=== PATIENT | female | born 1945 | race African-American/Black ===

== ENCOUNTER 2017-03-11 10:39 | Inpatient (IN) | payer MEDICARE, MEDICAID ==
[~2017-03-11] VITALS: Ht 162.6 cm; Wt 63.1 kg
[~2017-03-11 10:39] MED LIST: ALLO100T PO; AMLO5TAB88 PO; COLC0.6T66 PO; DOCU-138 PO; FERR-63 PO; FURO40TA5 PO; GABA-529 PO; MONT10TA24 PO; MULT-1146 PO; NITR0.4T3 SL; NOVOLOG 70/30 SQ; NOVOLOG SQ; OMEP20CA10 PO; RANO500T3 PO; SPIR25TA4 PO; TRAV2.5D BOTHEYE
[2017-03-11] MEDS ORDERED: METHYLPREDNISOLONE SOD SUCC 125 MG/2 ML VIAL IV STA (10:42)
[2017-03-11] MEDS ORDERED: FUROSEMIDE 40MG/4ML VIAL IV STA (10:42)
[2017-03-11] MEDS ORDERED: ASPIRIN 81MG TABLET PO STA (10:42)
[2017-03-11] MEDS ORDERED: IPRATROPIUM/ALBUTEROL 0.5-3(2.5)MG/3ML NEB HHN ONE (10:45)
[2017-03-11] MEDS ORDERED: DILTIAZEM HCL 30MG TABLET PO ONE (11:15)
[2017-03-11] MEDS ORDERED: DILTIAZEM HCL 5MG/ML 5ML VIAL IV ONE (11:15)
[2017-03-11 11:27] LABS: HEMATOCRIT. 36.6 % (36.0-48.0); HEMOGLOBIN. 11.5 g/dL (12.0-16.0); MEAN CORPUSCULAR HEMOGLOBIN 26.7 pg (28.0-32.0); MEAN CORPUSCULAR HGB CONC 31.3 g/dL (31.0-37.0); MEAN CORPUSCULAR VOLUME 85.2 fL (81.0-99.0); MEAN PLATELET VOLUME 9.8 fl (7.4-10.4); PLATELET 138 x1000/uL (130-400); RED CELL DISTRIBUTION WIDTH 18.6 % (11.6-14.6); WHITE BLOOD COUNT 16.5 x1000/uL (4.5-11.0)
[2017-03-11 11:29] LABS: DIFFERENTIAL COMMENT 1
[2017-03-11 11:33] LABS: BG BASE EXCESS -0.8 mmol/L (-2.0-2.0); BG BILEVEL POS AIRWAY PRESSURE 15/5; BG CARBOXYHEMOGLOBIN 0.2 % (0.5-1.5); BG DEOXYHEMOGLOBIN 1.3 % (0.0-5.0); BG FRACTION INSPIRED OXYGEN 50; BG HCO3 ACT 23.2 mmol/L (22.0-26.0); BG METHEMOGLOBIN 0.2 % (0.0-1.5); BG OXYGEN SATURATION 98.7 % (92.0-98.5); BG OXYHEMOGLOBIN 98.3 % (94.0-97.0); BG PCO2 36.2 mmHg (35.0-45.0); BG PH 7.425 (7.350-7.450); BG PO2 141.3 mmHg (75.0-100.0); BG SAMPLE SITE RIGHT BRACHIAL; BG TOTAL HEMOGLOBIN 11.9 g/dL (12.0-18.0); BG VENT MODE MASK - BIPAP; BG VENT RATE 14 set
[2017-03-11 11:34] LABS: INR 1.2; PROTHROMBIN TIME 12.7 sec
[2017-03-11 11:39] LABS: ALANINE AMINOTRANSFERASE 21 IU/L (13-61); ALBUMIN 2.8 g/dL (3.4-5.0); ANION GAP 13; CALCIUM 8.5 mg/dL (8.5-10.1); CARBON DIOXIDE 29 mEq/L (21-32); CHLORIDE 104 mEq/L (98-107); INDEX HEMOLYSI 1 (1-3); INDEX ICTERIC 1 (1-4); INDEX LIPEMIC 1 (1-3); LIPASE 51 IU/L (73-393); UREA NITROGEN BLOOD 23 mg/dL (7-21); eGFR 49 mL/min (>60)
[2017-03-11 11:42] LABS: LACTIC ACID 3.6 mmol/L (0.4-2.0)
[2017-03-11 11:43] LABS: CREATINE KINASE 33 IU/L (26-192); TROPONIN I 0.11 ng/mL (0.00-0.04)
[2017-03-11 11:51] LABS: *AMPHETAMINES SCREEN URINE NEGATIVE (NEGATIVE); *BARBITURATES SCREEN URINE NEGATIVE (NEGATIVE); *BENZODIAZEPINES SCREEN URINE NEGATIVE (NEGATIVE); *COCAINE SCREEN URINE NEGATIVE (NEGATIVE); CANNABINOID URINE SCREEN PRESUMTIVE POSITIVE (NEGATIVE); ECSTASY MDMA SCREEN URINE NEGATIVE (NEGATIVE); METHADONE URINE SCREEN NEGATIVE (NEGATIVE); OPIATES URINE SCREEN NEGATIVE (NEGATIVE); PHENCYCLIDINE URINE SCREEN NEGATIVE (NEGATIVE)
[2017-03-11 11:55] LABS: NT PRO B-TYPE NATRIURETIC PEP 52789 pg/mL (5-125); THYROID STIMULATING HORMONE 0.37 uIU/mL (0.36-3.74)
[2017-03-11 12:07] LABS: ANISOCYTOSIS 1+; PLATELET ESTIMATE NORMAL
[2017-03-11] MEDS ORDERED: LEVOFLOXACIN 750MG PREMIX 150 ML IV ONE (14:15)
[2017-03-11] MEDS ORDERED: DOCUSATE SODIUM 100MG CAPSULE PO PRN ×2 (15:45→19:30)
[2017-03-11] MEDS ORDERED: IPRATROPIUM/ALBUTEROL 0.5-3(2.5)MG/3ML NEB INH PRN ×2 (15:45→19:30)
[2017-03-11] MEDS ORDERED: MORPHINE SULFATE 2 MG/ML CPJ (NOT FOR IM USE) IV PRN (15:45)
[2017-03-11] MEDS ORDERED: PIPERACILLIN/TAZOBACTAM 3.375 G in DEXTROSE 5% WATER 50 ML IV SCH (15:45)
[2017-03-11] MEDS ORDERED: ACETAMINOPHEN 325MG TABLET PO PRN ×2 (15:45→19:00)
[2017-03-11] MEDS ORDERED: GUAIFENESIN 200MG/10ML SUGAR FREE UDC PO PRN (15:45)
[2017-03-11] MEDS ORDERED: ONDANSETRON HCL 4MG/2ML VIAL IV PRN ×2 (15:45→19:30)
[2017-03-11] MEDS ORDERED: PIPERACILLIN/TAZ 3.375G PREMIX 50 ML IV ONE (16:00)
[2017-03-11] MEDS ORDERED: FUROSEMIDE 40MG/4ML VIAL IV ONE (16:00)
[2017-03-11] MEDS ORDERED: CARVEDILOL 3.125 MG TABLET PO ONE (16:00)
[2017-03-11 18:10] VITALS: BP 150/84
[2017-03-11] MEDS ORDERED: FUROSEMIDE 40MG/4ML VIAL IVP SCH (18:30)
[2017-03-11] MEDS ORDERED: IPRATROPIUM/ALBUTEROL 0.5-3(2.5)MG/3ML NEB INH SCH (18:30)
[2017-03-11] MEDS ORDERED: CARVEDILOL 3.125 MG TABLET PO SCH (18:30)
[2017-03-11] MEDS ORDERED: DILTIAZEM HCL 5MG/ML 5ML VIAL IV PRN ×2 (18:30→19:30)
[2017-03-11 19:44] LABS: CLARITY URINE CLOUDY (CLEAR); COLOR URINE YELLOW (YELLOW); GLUCOSE URINE NEGATIVE (NEGATIVE); KETONES URINE NEGATIVE (NEGATIVE); LEUKOCYTE ESTERASE URINE 1+ (NEGATIVE); NITRITE URINE NEGATIVE (NEGATIVE); OCCULT BLOOD URINE 1+ (NEGATIVE); PROTEIN URINE 1+ (NEGATIVE); SPECIFIC GRAVITY URINE 1.014 (1.005-1.030); UROBILINOGEN URINE 0.2 E.U./dL (0.2-1.0)
[2017-03-11 20:00] VITALS: BP 137/72
[2017-03-11] MEDS ORDERED: AZITHROMYCIN 500 MG TABLET PO SCH (20:00)
[2017-03-11 20:08] LABS: MUCUS URINE 1+ /lpf (< = 2+)
[2017-03-11 20:11] LABS: BACTERIA URINE 1+; SQUAMOUS EPITHELIAL CELL URINE FEW /lpf (RARE/1+)
[2017-03-11] MEDS: IPRATROPIUM/ALBUTEROL 0.5-3(2.5)MG/3ML NEB INH SCH (20:32)
[2017-03-11] MEDS ORDERED: METRONIDAZOLE 500MG TABLET PO SCH (21:00)
[2017-03-11] MEDS ORDERED: VANCOMYCIN 1 G PREMIX 200 ML IV SCH (21:00)
[2017-03-11] MEDS: FUROSEMIDE 40MG/4ML VIAL IVP SCH (21:33)
[2017-03-11] MEDS: AZITHROMYCIN 500 MG TABLET PO SCH (21:33)
[2017-03-11] MEDS: METRONIDAZOLE 500MG TABLET PO SCH (21:33)
[2017-03-11] MEDS: DILTIAZEM HCL 60MG TABLET PO SCH (21:36)
[2017-03-11] MEDS: CARVEDILOL 3.125 MG TABLET PO SCH (21:37)
[2017-03-11 22:00] VITALS: BP 148/68
[2017-03-11] MEDS ORDERED: DILTIAZEM HCL 60MG TABLET PO SCH (22:00)
[2017-03-11] MEDS: CEFEPIME 1,000 MG in DEXTROSE 5% WATER 50 ML IV SCH (22:52)
[2017-03-12] VITALS (10 sets, daily range): BP systolic 121–155; BP diastolic 65–86
[2017-03-12] MEDS: GUAIFENESIN 200MG/10ML SUGAR FREE UDC PO PRN ×2 (00:47→09:23)
[2017-03-12] MEDS: IPRATROPIUM/ALBUTEROL 0.5-3(2.5)MG/3ML NEB INH SCH ×4 (01:10→20:57)
[2017-03-12] MEDS: MORPHINE SULFATE 2 MG/ML CPJ (NOT FOR IM USE) IV PRN ×3 (02:38→14:40)
[2017-03-12] MEDS: DILTIAZEM HCL 60MG TABLET PO SCH ×3 (06:11→19:24)
[2017-03-12 06:20] LABS: HEMATOCRIT. 29.5 % (36.0-48.0); HEMOGLOBIN. 9.7 g/dL (12.0-16.0); MEAN CORPUSCULAR HEMOGLOBIN 27.4 pg (28.0-32.0); MEAN CORPUSCULAR VOLUME 83.1 fL (81.0-99.0); MEAN PLATELET VOLUME 10.4 fl (7.4-10.4); PLATELET 122 x1000/uL (130-400); RED BLOOD CELL COUNT 3.55 mill/uL (4.2-5.4); RED CELL DISTRIBUTION WIDTH 18.9 % (11.6-14.6); WHITE BLOOD COUNT 13.8 x1000/uL (4.5-11.0)
[2017-03-12] MEDS ORDERED: OMEPRAZOLE 20MG CAPSULE EXTENDED RELEASE PO SCH ×2 (06:50)
[2017-03-12 07:33] LABS: CALCIUM 7.9 mg/dL (8.5-10.1); MAGNESIUM 1.8 mg/dL (1.8-2.4)
[2017-03-12 07:44] LABS: DIFFERENTIAL COMMENT 1
[2017-03-12] MEDS: FUROSEMIDE 40MG/4ML VIAL IVP SCH ×2 (09:19→17:57)
[2017-03-12] MEDS: CARVEDILOL 3.125 MG TABLET PO SCH ×2 (09:21→17:56)
[2017-03-12] MEDS: METRONIDAZOLE 500MG TABLET PO SCH (09:21)
[2017-03-12] MEDS ORDERED: NYSTATIN 100,000 UNITS/ML 5ML UDC SSW NR (09:45)
[2017-03-12] MEDS ORDERED: LIDOCAINE HCL 1% 20ML VIAL (Pyxis) INJ INFIL ONE (10:00)
[2017-03-12] MEDS ORDERED: LIDOCAINE HCL 1% 10 MG/ML 10ML VIAL INL NR (10:01)
[2017-03-12] MEDS ORDERED: LIDOCAINE HCL 1% 20ML VIAL (Pyxis) INJ INFIL NR (10:03)
[2017-03-12 10:16] LABS: ANISOCYTOSIS 1+
[2017-03-12 10:17] LABS: GIANT PLATELETS FEW; PLATELET ESTIMATE SLIGHTLY DECREASED
[2017-03-12] MEDS ORDERED: MORPHINE SULFATE 2 MG/ML CPJ (NOT FOR IM USE) IV ONE (11:30)
[2017-03-12] MEDS: CEFEPIME 1,000 MG in DEXTROSE 5% WATER 50 ML IV SCH (12:18)
[2017-03-12 13:22] LABS: INR 1.1; PARTIAL THROMBOPLASTIN TIME 30.1 sec (24.0-34.0); PROTHROMBIN TIME 11.8 sec
[2017-03-12] MEDS: PANTOPRAZOLE SODIUM 40 MG/VIAL IV SCH (14:40)
[2017-03-12] MEDS ORDERED: MIDAZOLAM HCL 5 MG/5 ML VIAL IV PRN (16:16)
[2017-03-12] MEDS ORDERED: FENTANYL CITRATE/PF 50MCG/ML 2ML VIAL IV PRN (16:16)
[2017-03-12] MEDS ORDERED: FENTANYL CITRATE/PF 50MCG/ML 2ML VIAL ONE (16:17)
[2017-03-12] MEDS ORDERED: SIMETHICONE 40 MG/0.6 ML 30ML ONE (16:17)
[2017-03-12] MEDS ORDERED: MIDAZOLAM HCL 5 MG/5 ML VIAL ONE (16:18)
[2017-03-12] MEDS ORDERED: FLUCONAZOLE 100MG/50ML PREMIX IV ONE (16:30)
[2017-03-12] MEDS: PIPERACILLIN/TAZ 3.375G PREMIX 50 ML IV SCH (17:48)
[2017-03-12] MEDS ORDERED: FLUCONAZOLE 100 MG/50ML BAG 50 ML IV NR ×2 (18:00→22:00)
[2017-03-12] MEDS: VANCOMYCIN 750 MG PREMIX 150 ML IV SCH (18:41)
[2017-03-12] MEDS: AZITHROMYCIN 500 MG TABLET PO SCH (20:47)
[2017-03-12] MEDS ORDERED: PIPERACILLIN/TAZOBACTAM 3.375 G in DEXT 5% WATER 100 ML IV SCH (22:00)
[2017-03-13] VITALS (11 sets, daily range): BP systolic 121–149; BP diastolic 64–84
[2017-03-13] MEDS: DILTIAZEM HCL 60MG TABLET PO SCH ×4 (00:04→18:57)
[2017-03-13] MEDS: PIPERACILLIN/TAZ 3.375G PREMIX 50 ML IV SCH ×3 (00:04→16:49)
[2017-03-13] MEDS: IPRATROPIUM/ALBUTEROL 0.5-3(2.5)MG/3ML NEB INH SCH ×3 (01:24→20:59)
[2017-03-13 06:52] LABS: HEMATOCRIT. 28.7 % (36.0-48.0); HEMOGLOBIN. 9.4 g/dL (12.0-16.0); MEAN CORPUSCULAR HEMOGLOBIN 27.2 pg (28.0-32.0); MEAN CORPUSCULAR HGB CONC 32.6 g/dL (31.0-37.0); MEAN CORPUSCULAR VOLUME 83.4 fL (81.0-99.0); MEAN PLATELET VOLUME 9.9 fl (7.4-10.4); PLATELET 141 x1000/uL (130-400); RED BLOOD CELL COUNT 3.44 mill/uL (4.2-5.4); RED CELL DISTRIBUTION WIDTH 18.4 % (11.6-14.6); WHITE BLOOD COUNT 13.9 x1000/uL (4.5-11.0)
[2017-03-13 06:55] LABS: DIFFERENTIAL COMMENT 1
[2017-03-13 08:26] LABS: CALCIUM 7.7 mg/dL (8.5-10.1); MAGNESIUM 1.9 mg/dL (1.8-2.4)
[2017-03-13] MEDS: FUROSEMIDE 40MG/4ML VIAL IVP SCH ×2 (08:49→16:52)
[2017-03-13] MEDS: PANTOPRAZOLE SODIUM 40 MG/VIAL IV SCH (08:49)
[2017-03-13] MEDS: CARVEDILOL 3.125 MG TABLET PO SCH ×2 (08:51→16:53)
[2017-03-13 10:46] LABS: ANISOCYTOSIS 1+; PLATELET ESTIMATE NORMAL
[2017-03-13 10:47] LABS: GIANT PLATELETS FEW
[2017-03-13] MEDS: GUAIFENESIN 200MG/10ML SUGAR FREE UDC PO PRN ×2 (11:48→16:49)
[2017-03-13] MEDS: VANCOMYCIN 750 MG PREMIX 150 ML IV SCH (13:33)
[2017-03-13] MEDS: AZITHROMYCIN 500 MG TABLET PO SCH (18:57)
[2017-03-13] MEDS: GUAIFENESIN 600MG ER TABLET PO SCH (20:27)
[2017-03-14] VITALS (12 sets, daily range): BP systolic 134–148; BP diastolic 59–86
[2017-03-14] MEDS: DILTIAZEM HCL 60MG TABLET PO SCH ×5 (00:10→23:33)
[2017-03-14] MEDS: PIPERACILLIN/TAZ 3.375G PREMIX 50 ML IV SCH ×4 (00:10→23:33)
[2017-03-14] MEDS: MORPHINE SULFATE 2 MG/ML CPJ (NOT FOR IM USE) IV PRN ×2 (00:18→20:40)
[2017-03-14] MEDS: IPRATROPIUM/ALBUTEROL 0.5-3(2.5)MG/3ML NEB INH SCH ×4 (03:02→20:57)
[2017-03-14] MEDS: VANCOMYCIN 750 MG PREMIX 150 ML IV SCH (04:19)
[2017-03-14] MEDS: GUAIFENESIN 600MG ER TABLET PO SCH ×2 (08:43→20:34)
[2017-03-14] MEDS: FUROSEMIDE 40MG/4ML VIAL IVP SCH ×2 (08:43→17:37)
[2017-03-14] MEDS: PANTOPRAZOLE SODIUM 40 MG/VIAL IV SCH (08:43)
[2017-03-14] MEDS: CARVEDILOL 3.125 MG TABLET PO SCH ×2 (08:48→17:36)
[2017-03-14] MEDS: ACETYLCYSTEINE 200MG/ML 20% VIAL 4ML INH SCH ×3 (09:05→20:57)
[2017-03-14] MEDS: GUAIFENESIN 200MG/10ML SUGAR FREE UDC PO PRN (12:10)
[2017-03-14] MEDS: ALLOPURINOL 100 MG TABLET PO SCH (17:33)
[2017-03-14] MEDS: COLCHICINE 0.6MG TABLET PO SCH ×2 (17:33→20:34)
[2017-03-14] MEDS: AZITHROMYCIN 500 MG TABLET PO SCH (20:34)
[2017-03-15] VITALS (12 sets, daily range): BP systolic 126–166; BP diastolic 62–88
[2017-03-15] MEDS: ACETYLCYSTEINE 200MG/ML 20% VIAL 4ML INH SCH ×2 (02:42→04:00)
[2017-03-15] MEDS: IPRATROPIUM/ALBUTEROL 0.5-3(2.5)MG/3ML NEB INH SCH ×4 (02:42→20:45)
[2017-03-15 05:40] LABS: BASOPHILS % 0.1 % (0.0-2.0); EOSINOPHILS % 0.2 % (0.0-5.0); HEMATOCRIT. 31.9 % (36.0-48.0); HEMOGLOBIN. 10.5 g/dL (12.0-16.0); LYMPHOCYTES % 10.7 % (20.0-50.0); MEAN CORPUSCULAR HEMOGLOBIN 27.3 pg (28.0-32.0); MEAN CORPUSCULAR VOLUME 82.7 fL (81.0-99.0); MEAN PLATELET VOLUME 9.5 fl (7.4-10.4); MONOCYTES % 6.4 % (2.0-8.0); NEUTROPHILS % 82.6 % (40.0-76.0); PLATELET 166 x1000/uL (130-400); RED BLOOD CELL COUNT 3.85 mill/uL (4.2-5.4); RED CELL DISTRIBUTION WIDTH 18.6 % (11.6-14.6); WHITE BLOOD COUNT 8.9 x1000/uL (4.5-11.0)
[2017-03-15 05:52] LABS: CALCIUM 7.4 mg/dL (8.5-10.1); MAGNESIUM 1.7 mg/dL (1.8-2.4)
[2017-03-15] MEDS: DILTIAZEM HCL 60MG TABLET PO SCH (06:01)
[2017-03-15] MEDS: PIPERACILLIN/TAZ 3.375G PREMIX 50 ML IV SCH ×2 (08:29→16:14)
[2017-03-15] MEDS: COLCHICINE 0.6MG TABLET PO SCH ×2 (08:30→21:10)
[2017-03-15] MEDS: ALLOPURINOL 100 MG TABLET PO SCH (08:30)
[2017-03-15] MEDS: GUAIFENESIN 600MG ER TABLET PO SCH ×2 (08:30→21:10)
[2017-03-15] MEDS: CARVEDILOL 3.125 MG TABLET PO SCH ×2 (08:31→17:24)
[2017-03-15] MEDS: FUROSEMIDE 40MG/4ML VIAL IVP SCH (08:31)
[2017-03-15] MEDS: FAMOTIDINE 20MG/2ML VIAL IV SCH (08:31)
[2017-03-15] MEDS ORDERED: POTASSIUM CHLORIDE 20MEQ TABLET SR PO NR (08:45)
[2017-03-15] MEDS ORDERED: VANCOMYCIN 750 MG PREMIX 150 ML IV SCH (09:00)
[2017-03-15] MEDS ORDERED: MAGNESIUM 1 G PREMIX 100 ML IV NR (10:00)
[2017-03-15] MEDS: MORPHINE SULFATE 2 MG/ML CPJ (NOT FOR IM USE) IV PRN ×2 (10:50→16:13)
[2017-03-15] MEDS ORDERED: KCL 20MEQ/100ML PREMIX 100 ML IV NR (11:00)
[2017-03-15] MEDS: DILTIAZEM HCL 90MG TABLET PO SCH ×2 (11:58→17:24)
[2017-03-15] MEDS: AZITHROMYCIN 500 MG TABLET PO SCH (18:52)
[2017-03-16] VITALS (11 sets, daily range): BP systolic 126–156; BP diastolic 61–90
[2017-03-16] MEDS: PIPERACILLIN/TAZ 3.375G PREMIX 50 ML IV SCH ×3 (00:10→16:08)
[2017-03-16] MEDS: DILTIAZEM HCL 90MG TABLET PO SCH ×4 (01:10→17:28)
[2017-03-16] MEDS: IPRATROPIUM/ALBUTEROL 0.5-3(2.5)MG/3ML NEB INH SCH ×4 (02:16→19:58)
[2017-03-16 05:55] LABS: ANION GAP 10; CALCIUM 7.7 mg/dL (8.5-10.1); CARBON DIOXIDE 33 mEq/L (21-32); CHLORIDE 103 mEq/L (98-107); INDEX HEMOLYSI 1 (1-3); INDEX ICTERIC 1 (1-4); INDEX LIPEMIC 1 (1-3); MAGNESIUM 2.1 mg/dL (1.8-2.4); UREA NITROGEN BLOOD 19 mg/dL (7-21); eGFR > 60 mL/min (>60)
[2017-03-16 05:59] LABS: BASOPHILS % 0.3 % (0.0-2.0); EOSINOPHILS % 0.9 % (0.0-5.0); HEMATOCRIT. 32.3 % (36.0-48.0); HEMOGLOBIN. 10.4 g/dL (12.0-16.0); LYMPHOCYTES % 10.5 % (20.0-50.0); MEAN CORPUSCULAR HEMOGLOBIN 27.1 pg (28.0-32.0); MEAN CORPUSCULAR HGB CONC 32.3 g/dL (31.0-37.0); MEAN CORPUSCULAR VOLUME 83.9 fL (81.0-99.0); MEAN PLATELET VOLUME 9.5 fl (7.4-10.4); MONOCYTES % 6.8 % (2.0-8.0); NEUTROPHILS % 81.5 % (40.0-76.0); PLATELET 171 x1000/uL (130-400); RED BLOOD CELL COUNT 3.85 mill/uL (4.2-5.4); RED CELL DISTRIBUTION WIDTH 18.2 % (11.6-14.6); WHITE BLOOD COUNT 8.4 x1000/uL (4.5-11.0)
[2017-03-16 06:03] LABS: DIGOXIN 0.8 ng/mL (0.9-2.0)
[2017-03-16] MEDS ORDERED: FUROSEMIDE 20MG TABLET PO SCH (09:00)
[2017-03-16] MEDS: COLCHICINE 0.6MG TABLET PO SCH (09:47)
[2017-03-16] MEDS: GUAIFENESIN 600MG ER TABLET PO SCH (09:49)
[2017-03-16] MEDS: CARVEDILOL 3.125 MG TABLET PO SCH ×2 (09:49→17:28)
[2017-03-16] MEDS: ALLOPURINOL 100 MG TABLET PO SCH (09:50)
[2017-03-16] MEDS: FAMOTIDINE 20MG/2ML VIAL IV SCH (09:51)
[2017-03-16] MEDS ORDERED: POTASSIUM CHLORIDE 20MEQ TABLET SR PO NR (10:00)
[2017-03-16] MEDS ORDERED: DIATR MEGLU/DIATRIZOATE SOLN 30ML PO SCH ×2 (10:00→10:15)
[2017-03-16] MEDS ORDERED: IOHEXOL-300 100 ML BOTTLE ONE (12:24)
[2017-03-16] MEDS ORDERED: SODIUM CHLORIDE 0.9% 10ML VIAL ONE (12:24)
[2017-03-16] MEDS: GUAIFENESIN 200MG/10ML SUGAR FREE UDC PO PRN (16:08)
[2017-03-16] MEDS: AZITHROMYCIN 500 MG TABLET PO SCH (19:21)
[2017-03-16] MEDS ORDERED: MONTELUKAST SODIUM 10MG TABLET PO SCH (23:45)
== END 2017-03-16 20:50 | disposition home or self-care (01) | DRG 871 ==
LOC: ER 11:06 → 3WST 12:31
PROVIDERS: ADMIT Family Medicine Adult Medicine; ATTEND Family Medicine Adult Medicine
PROC: 5A09357 Assistance with Respiratory Ventilation, Less than 24 Consecutive Hours, Continuous Positive Airway Pressure (ICD-10-PCS; 2017-03-11)
PROC: 0DB58ZX Excision of Esophagus, Via Natural or Artificial Opening Endoscopic, Diagnostic (ICD-10-PCS; 2017-03-12)
PROC: 05H533Z Insertion of Infusion Device into Right Subclavian Vein, Percutaneous Approach (ICD-10-PCS; principal; 2017-03-13)
PROC: B5161ZA Fluoroscopy of Right Subclavian Vein using Low Osmolar Contrast, Guidance (ICD-10-PCS; 2017-03-13)
PROC: B546ZZA Ultrasonography of Right Subclavian Vein, Guidance (ICD-10-PCS; 2017-03-13)
DX: A41.9 Sepsis, unspecified organism (principal); I50.23 Acute on chronic systolic (congestive) heart failure; J18.9 Pneumonia, unspecified organism; J96.00 Acute respiratory failure, unspecified whether with hypoxia or hypercapnia; I13.0 Hypertensive heart and chronic kidney disease with heart failure and stage 1 through stage 4 chronic kidney disease, or unspecified chronic kidney disease; N39.0 Urinary tract infection, site not specified; B37.0 Candidal stomatitis; I48.1 Persistent atrial fibrillation; E87.2 Acidosis; J44.0 Chronic obstructive pulmonary disease with (acute) lower respiratory infection; J44.1 Chronic obstructive pulmonary disease with (acute) exacerbation; I42.0 Dilated cardiomyopathy; K81.9 Cholecystitis, unspecified; S30.1XXA Contusion of abdominal wall, initial encounter; E11.22 Type 2 diabetes mellitus with diabetic chronic kidney disease; D35.02 Benign neoplasm of left adrenal gland; D35.01 Benign neoplasm of right adrenal gland; D69.6 Thrombocytopenia, unspecified; E78.5 Hyperlipidemia, unspecified; I08.0 Rheumatic disorders of both mitral and aortic valves; I25.10 Atherosclerotic heart disease of native coronary artery without angina pectoris; I25.2 Old myocardial infarction; E11.51 Type 2 diabetes mellitus with diabetic peripheral angiopathy without gangrene; K20.9 Esophagitis, unspecified; K29.70 Gastritis, unspecified, without bleeding; K44.9 Diaphragmatic hernia without obstruction or gangrene; K57.90 Diverticulosis of intestine, part unspecified, without perforation or abscess without bleeding; K59.09 Other constipation; M10.9 Gout, unspecified; Z96.659 Presence of unspecified artificial knee joint; X58.XXXA Exposure to other specified factors, initial encounter; R19.01 Right upper quadrant abdominal swelling, mass and lump; N18.9 Chronic kidney disease, unspecified; R13.10 Dysphagia, unspecified; Z79.4 Long term (current) use of insulin; Z87.891 Personal history of nicotine dependence; Z90.49 Acquired absence of other specified parts of digestive tract; Z79.899 Other long term (current) drug therapy; Y93.89 Activity, other specified; Y92.89 Other specified places as the place of occurrence of the external cause; Y99.8 Other external cause status
CPT/HCPCS: 36415; 36569; 36600; 51702; 71010; 74177; 76937; 77001; 80048; 80053; 80162; 80202; 80305; 81001; 82375; 82550; 82805; 83605; 83690; 83735; 83880; 84443; 84484; 85025; 85610; 85730; 87040; 87070; 87086; 88305; 88312; 93005; 93970; 94640; 94660; 94664; 96365; 96366; 96375; 97162; 99285; A4216; C1725; C9113; J0692; J1450; J1940; J1956; J2250; J2270; J2405; J2543; J2930; J3010; J3370; J3475; J3480; J3490; J7040; J7050; J7060; J7608; J7620; Q9963; Q9967; A4315

== ENCOUNTER 2017-04-07 11:03 | Inpatient (IN) | payer MEDICARE, MEDICAID ==
[~2017-04-07] VITALS: Ht 165.1 cm; Wt 59.9 kg
[2017-04-07] MEDS ORDERED: ALBUTEROL (0.083%) 2.5MG/3ML NEB HHN STA (11:47)
[2017-04-07] MEDS ORDERED: FUROSEMIDE 40MG/4ML VIAL IV ONE (12:00)
[2017-04-07] MEDS ORDERED: NITROGLYCERIN OINT 1GM/INCH UDPKT TD ONE (12:00)
[2017-04-07] MEDS ORDERED: ASPIRIN 81MG TABLET PO ONE (12:00)
[2017-04-07] MEDS ORDERED: DILTIAZEM HCL 5MG/ML 5ML VIAL IV ONE (12:00)
[2017-04-07 12:27] LABS: BASOPHILS % 0.7 % (0.0-2.0); EOSINOPHILS % 0.8 % (0.0-5.0); HEMATOCRIT. 33.3 % (36.0-48.0); HEMOGLOBIN. 10.4 g/dL (12.0-16.0); LYMPHOCYTES % 22.7 % (20.0-50.0); MEAN CORPUSCULAR HEMOGLOBIN 26.5 pg (28.0-32.0); MEAN CORPUSCULAR VOLUME 84.5 fL (81.0-99.0); MEAN PLATELET VOLUME 9.3 fl (7.4-10.4); MONOCYTES % 4.4 % (2.0-8.0); NEUTROPHILS % 71.4 % (40.0-76.0); PLATELET 201 x1000/uL (130-400); RED BLOOD CELL COUNT 3.93 mill/uL (4.2-5.4); RED CELL DISTRIBUTION WIDTH 19.5 % (11.6-14.6)
[2017-04-07 12:36] LABS: CHLORIDE 109 mEq/L (98-107)
[2017-04-07 12:44] LABS: CARBON DIOXIDE 17 mEq/L (21-32)
[2017-04-07 12:45] LABS: D-DIMER 4.86 mg/L FEU (<0.50); INR 1.1; PROTHROMBIN TIME 11.6 sec; TROPONIN I 0.14 ng/mL (0.00-0.04)
[2017-04-07 12:45] LABS: BG BASE EXCESS -8.4 mmol/L (-2.0-2.0); BG CARBOXYHEMOGLOBIN 0.3 % (0.5-1.5); BG DEOXYHEMOGLOBIN 4.5 % (0.0-5.0); BG FRACTION INSPIRED OXYGEN 36; BG HCO3 ACT 17.3 mmol/L (22.0-26.0); BG METHEMOGLOBIN 0.3 % (0.0-1.5); BG OXYGEN SATURATION 95.5 % (92.0-98.5); BG OXYHEMOGLOBIN 94.9 % (94.0-97.0); BG PCO2 36.4 mmHg (35.0-45.0); BG PH 7.295 (7.350-7.450); BG PO2 92.7 mmHg (75.0-100.0); BG SAMPLE SITE RIGHT BRACHIAL; BG TOTAL HEMOGLOBIN 11.8 g/dL (12.0-18.0); BG VENT MODE NASAL CANNULA
[2017-04-07] MEDS ORDERED: DEXTROSE 50% WATER 50ML SYRINGE IV PRN (16:30)
[2017-04-07] MEDS ORDERED: DILTIAZEM HCL 5MG/ML 5ML VIAL IV NR (16:30)
[2017-04-07] MEDS ORDERED: METOPROLOL TARTRATE 25MG TABLET PO SCH (17:00)
[2017-04-07] MEDS: FUROSEMIDE 40MG/4ML VIAL IVP SCH (17:08)
[2017-04-07] MEDS ORDERED: ACETAMINOPHEN 325MG TABLET PO ONE (17:45)
[2017-04-07] MEDS: INSULIN LISPRO 100 UNITS/ML SUBCUT SCH ×2 (17:52→21:00)
[2017-04-07] MEDS ORDERED: DIGOXIN 500MCG/2ML AMP IV SCH (18:00)
[2017-04-07 18:33] VITALS: BP 163/96
[2017-04-07 20:00] VITALS: BP 186/97
[2017-04-07] MEDS: BLOOD SUGAR DIAGNOSTIC STRIP TEST SCH (21:00)
[2017-04-07] MEDS: DILTIAZEM HCL 60MG TABLET PO SCH (21:03)
[2017-04-07 22:03] VITALS: BP 179/110
[2017-04-07] MEDS ORDERED: CLONIDINE 0.1MG TABLET PO PRN (22:15)
[2017-04-07] MEDS: HYDROCODONE/ACETAMINOPHEN 5/325MG TABLET PO PRN (22:38)
[2017-04-08] VITALS (12 sets, daily range): BP systolic 121–160; BP diastolic 71–97
[2017-04-08] MEDS: DILTIAZEM HCL 60MG TABLET PO SCH ×3 (05:42→22:16)
[2017-04-08] MEDS: BLOOD SUGAR DIAGNOSTIC STRIP TEST SCH ×4 (05:51→21:00)
[2017-04-08 06:27] LABS: BASOPHILS % 0.4 % (0.0-2.0); EOSINOPHILS % 0.2 % (0.0-5.0); HEMATOCRIT. 30.8 % (36.0-48.0); HEMOGLOBIN. 9.8 g/dL (12.0-16.0); MEAN CORPUSCULAR HEMOGLOBIN 26.7 pg (28.0-32.0); MEAN CORPUSCULAR VOLUME 83.9 fL (81.0-99.0); MEAN PLATELET VOLUME 9.7 fl (7.4-10.4); NEUTROPHILS % 80.4 % (40.0-76.0); PLATELET 154 x1000/uL (130-400); RED BLOOD CELL COUNT 3.67 mill/uL (4.2-5.4); RED CELL DISTRIBUTION WIDTH 19.5 % (11.6-14.6)
[2017-04-08] MEDS: INSULIN LISPRO 100 UNITS/ML SUBCUT SCH ×4 (06:30→21:00)
[2017-04-08 07:35] LABS: TROPONIN I 0.1 ng/mL (0.00-0.04)
[2017-04-08] MEDS: METOPROLOL TARTRATE 50MG TABLET PO SCH ×2 (07:58→20:57)
[2017-04-08] MEDS: FUROSEMIDE 40MG/4ML VIAL IVP SCH ×2 (07:58→16:14)
[2017-04-08] MEDS: HYDROCODONE/ACETAMINOPHEN 5/325MG TABLET PO PRN ×2 (07:58→12:44)
[2017-04-08] MEDS: OMEPRAZOLE 20MG CAPSULE EXTENDED RELEASE PO SCH (12:43)
[2017-04-09] VITALS (9 sets, daily range): BP systolic 135–156; BP diastolic 55–92
[2017-04-09] MEDS: DILTIAZEM HCL 60MG TABLET PO SCH (05:37)
[2017-04-09] MEDS: BLOOD SUGAR DIAGNOSTIC STRIP TEST SCH ×2 (06:00→12:50)
[2017-04-09] MEDS: OMEPRAZOLE 20MG CAPSULE EXTENDED RELEASE PO SCH (06:00)
[2017-04-09 06:08] LABS: BASOPHILS % 0.7 % (0.0-2.0); EOSINOPHILS % 1.1 % (0.0-5.0); HEMATOCRIT. 30.9 % (36.0-48.0); LYMPHOCYTES % 12.8 % (20.0-50.0); MEAN CORPUSCULAR HEMOGLOBIN 26.9 pg (28.0-32.0); MEAN CORPUSCULAR VOLUME 83.3 fL (81.0-99.0); MEAN PLATELET VOLUME 9.9 fl (7.4-10.4); MONOCYTES % 5.8 % (2.0-8.0); NEUTROPHILS % 79.6 % (40.0-76.0); PLATELET 170 x1000/uL (130-400); RED BLOOD CELL COUNT 3.71 mill/uL (4.2-5.4); RED CELL DISTRIBUTION WIDTH 19.9 % (11.6-14.6)
[2017-04-09] MEDS: INSULIN LISPRO 100 UNITS/ML SUBCUT SCH ×2 (07:20→12:20)
[2017-04-09] MEDS: FUROSEMIDE 40MG/4ML VIAL IVP SCH (09:58)
[2017-04-09] MEDS: METOPROLOL TARTRATE 50MG TABLET PO SCH (10:01)
[2017-04-09] MEDS ORDERED: MAGNESIUM 2 G PREMIX 50 ML IV NR (10:30)
[2017-04-09 11:25] LABS: BG BASE EXCESS 3.4 mmol/L (-2.0-2.0); BG CARBOXYHEMOGLOBIN 0.4 % (0.5-1.5); BG DEOXYHEMOGLOBIN 6.3 % (0.0-5.0); BG FRACTION INSPIRED OXYGEN 21; BG HCO3 ACT 27.6 mmol/L (22.0-26.0); BG METHEMOGLOBIN 0.3 % (0.0-1.5); BG OXYGEN SATURATION 93.7 % (92.0-98.5); BG PCO2 40.5 mmHg (35.0-45.0); BG PH 7.452 (7.350-7.450); BG PO2 71.9 mmHg (75.0-100.0); BG SAMPLE SITE LEFT BRACHIAL; BG TOTAL HEMOGLOBIN 11.1 g/dL (12.0-18.0); BG VENT MODE ROOM AIR
== END 2017-04-09 15:42 | disposition home or self-care (01) | DRG 291 ==
LOC: ER 11:10 → 3WST 16:56
PROVIDERS: ADMIT Family Medicine Adult Medicine; ATTEND Family Medicine Adult Medicine
DX: I13.0 Hypertensive heart and chronic kidney disease with heart failure and stage 1 through stage 4 chronic kidney disease, or unspecified chronic kidney disease (principal); I50.23 Acute on chronic systolic (congestive) heart failure; I48.1 Persistent atrial fibrillation; K91.871 Postprocedural hematoma of a digestive system organ or structure following other procedure; J44.1 Chronic obstructive pulmonary disease with (acute) exacerbation; J84.9 Interstitial pulmonary disease, unspecified; E11.22 Type 2 diabetes mellitus with diabetic chronic kidney disease; N18.9 Chronic kidney disease, unspecified; E78.5 Hyperlipidemia, unspecified; I25.10 Atherosclerotic heart disease of native coronary artery without angina pectoris; I25.5 Ischemic cardiomyopathy; K21.9 Gastro-esophageal reflux disease without esophagitis; I27.2 Other secondary pulmonary hypertension; K59.00 Constipation, unspecified; Z96.659 Presence of unspecified artificial knee joint; Z90.49 Acquired absence of other specified parts of digestive tract; Z79.899 Other long term (current) drug therapy
CPT/HCPCS: 36415; 36600; 51702; 71010; 80048; 80053; 80162; 82375; 82805; 82962; 83735; 83880; 84484; 85025; 85379; 85610; 87493; 93005; 93970; 94620; 94640; 96374; 96375; 99291; C1893; J1160; J1940; J3475; J3490; J7050; J7611

== ENCOUNTER 2017-05-28 14:41 | Inpatient (IN) | payer MEDICARE, MEDICAID ==
[~2017-05-28] VITALS: Ht 162.6 cm; Wt 59.0 kg
[2017-05-28] MEDS ORDERED: DILTIAZEM HCL 5MG/ML 5ML VIAL IV PRN (16:30)
[2017-05-28 16:37] LABS: INR 1.2; PROTHROMBIN TIME 12.3 sec
[2017-05-28 16:42] LABS: BASOPHILS % 0.7 % (0.0-2.0); EOSINOPHILS % 0.8 % (0.0-5.0); HEMATOCRIT. 30.5 % (36.0-48.0); HEMOGLOBIN. 9.9 g/dL (12.0-16.0); LYMPHOCYTES % 15.1 % (20.0-50.0); MEAN CORPUSCULAR HEMOGLOBIN 26.9 pg (28.0-32.0); MEAN CORPUSCULAR VOLUME 82.7 fL (81.0-99.0); MEAN PLATELET VOLUME 10.5 fl (7.4-10.4); MONOCYTES % 9.2 % (2.0-8.0); NEUTROPHILS % 74.2 % (40.0-76.0); PLATELET 148 x1000/uL (130-400); RED BLOOD CELL COUNT 3.69 mill/uL (4.2-5.4); RED CELL DISTRIBUTION WIDTH 18.8 % (11.6-14.6)
[2017-05-28 16:45] LABS: TROPONIN I 0.06 ng/mL (0.00-0.04)
[2017-05-28] MEDS: METOPROLOL TARTRATE 50MG TABLET PO SCH (17:11)
[2017-05-28] MEDS ORDERED: ACETAMINOPHEN 325MG TABLET PO PRN (17:15)
[2017-05-28] MEDS ORDERED: DEXTROSE 50% WATER 50ML SYRINGE IV PRN (17:15)
[2017-05-28] MEDS ORDERED: MORPHINE SULFATE 2 MG/ML CPJ (NOT FOR IM USE) IV PRN (17:15)
[2017-05-28] MEDS ORDERED: DOCUSATE SODIUM 100MG CAPSULE PO PRN (17:15)
[2017-05-28] MEDS ORDERED: POTASSIUM CHLORIDE 20MEQ TABLET SR PO NR (17:15)
[2017-05-28] MEDS: DILTIAZEM HCL 90MG TABLET PO SCH (18:36)
[2017-05-28] MEDS: DIGOXIN 125MCG TABLET PO SCH (18:36)
[2017-05-28 20:30] VITALS: BP 124/102
[2017-05-28 21:00] VITALS: BP 124/102
[2017-05-28] MEDS ORDERED: ZOLPIDEM TARTRATE 5MG TABLET PO PRN (21:00)
[2017-05-28] MEDS: INSULIN LISPRO 100 UNITS/ML SUBCUT SCH (21:00)
[2017-05-28] MEDS: BLOOD SUGAR DIAGNOSTIC STRIP TEST SCH (21:24)
[2017-05-28] MEDS: FUROSEMIDE 40MG TABLET PO SCH (21:50)
[2017-05-28] MEDS: RANOLAZINE 500 MG TAB.SR.12H PO SCH (21:51)
[2017-05-28] MEDS: ONDANSETRON HCL 4MG/2ML VIAL IV PRN (22:05)
[2017-05-28] MEDS ORDERED: NITROGLYCERIN 0.4MG TABLET SL SL SCH (23:30)
[2017-05-29] VITALS: BP 128/83
[2017-05-29] MEDS: DILTIAZEM HCL 90MG TABLET PO SCH ×4 (00:38→18:12)
[2017-05-29 04:00] VITALS: BP 133/90
[2017-05-29] MEDS: OMEPRAZOLE 20MG CAPSULE EXTENDED RELEASE PO SCH (06:20)
[2017-05-29] MEDS: BLOOD SUGAR DIAGNOSTIC STRIP TEST SCH ×4 (06:20→21:06)
[2017-05-29 07:47] LABS: BASOPHILS % 0.6 % (0.0-2.0); EOSINOPHILS % 1.1 % (0.0-5.0); HEMATOCRIT. 30.8 % (36.0-48.0); HEMOGLOBIN. 9.9 g/dL (12.0-16.0); LYMPHOCYTES % 22.5 % (20.0-50.0); MEAN CORPUSCULAR HEMOGLOBIN 26.9 pg (28.0-32.0); MEAN CORPUSCULAR VOLUME 83.4 fL (81.0-99.0); MEAN PLATELET VOLUME 10.8 fl (7.4-10.4); MONOCYTES % 5.9 % (2.0-8.0); NEUTROPHILS % 69.9 % (40.0-76.0); PLATELET 155 x1000/uL (130-400); RED BLOOD CELL COUNT 3.69 mill/uL (4.2-5.4); RED CELL DISTRIBUTION WIDTH 19.7 % (11.6-14.6)
[2017-05-29] MEDS: INSULIN LISPRO 100 UNITS/ML SUBCUT SCH ×4 (07:50→21:00)
[2017-05-29 08:00] VITALS: BP 123/82
[2017-05-29 08:12] LABS: TROPONIN I 0.04 ng/mL (0.00-0.04)
[2017-05-29] MEDS ORDERED: AMLODIPINE 5MG TABLET PO SCH (09:00)
[2017-05-29] MEDS ORDERED: MEDICATION NOT ON FORMULARY EA (Multivitamin (Multi Vitamin Daily) 1 TAB) PO SCH (09:00)
[2017-05-29] MEDS: GABAPENTIN 100MG CAPSULE PO SCH ×2 (09:22→16:29)
[2017-05-29] MEDS: FUROSEMIDE 40MG TABLET PO SCH (09:23)
[2017-05-29] MEDS: SPIRONOLACTONE 25MG TABLET PO SCH (09:23)
[2017-05-29] MEDS: RANOLAZINE 500 MG TAB.SR.12H PO SCH ×2 (09:23→21:26)
[2017-05-29] MEDS: ALLOPURINOL 100 MG TABLET PO SCH (09:23)
[2017-05-29] MEDS: FERROUS SULFATE 325MG TABLET PO SCH ×3 (09:23→18:12)
[2017-05-29] MEDS: METOPROLOL TARTRATE 50MG TABLET PO SCH (09:24)
[2017-05-29] MEDS: MULTIVITAMINS,THER W-MINERALS TABLET PO SCH (09:25)
[2017-05-29 12:00] VITALS: BP 116/79
[2017-05-29] MEDS: POTASSIUM CHLORIDE 20MEQ TABLET SR PO SCH (13:06)
[2017-05-29 16:00] VITALS: BP 124/76
[2017-05-29] MEDS: HYDROCODONE/ACETAMINOPHEN 5/325MG TABLET PO PRN ×2 (16:30→23:04)
[2017-05-29] MEDS: ONDANSETRON HCL 4MG/2ML VIAL IV PRN (16:38)
[2017-05-29] MEDS: DIGOXIN 125MCG TABLET PO SCH (18:12)
[2017-05-29 20:00] VITALS: BP 132/80
[2017-05-29] MEDS: CARVEDILOL 3.125 MG TABLET PO SCH (21:00)
[2017-05-29] MEDS: FUROSEMIDE 20MG TABLET PO SCH (21:28)
[2017-05-29] MEDS: MONTELUKAST SODIUM 10MG TABLET PO SCH (21:28)
[2017-05-30] VITALS: BP 134/67
[2017-05-30] MEDS: DILTIAZEM HCL 90MG TABLET PO SCH ×4 (00:17→17:21)
[2017-05-30 04:00] VITALS: BP 124/84
[2017-05-30] MEDS: BLOOD SUGAR DIAGNOSTIC STRIP TEST SCH ×4 (06:22→21:54)
[2017-05-30] MEDS: OMEPRAZOLE 20MG CAPSULE EXTENDED RELEASE PO SCH (06:22)
[2017-05-30 07:02] LABS: BASOPHILS % 0.6 % (0.0-2.0); EOSINOPHILS % 1.1 % (0.0-5.0); HEMOGLOBIN. 10.5 g/dL (12.0-16.0); LYMPHOCYTES % 18.5 % (20.0-50.0); MEAN CORPUSCULAR HEMOGLOBIN 26.4 pg (28.0-32.0); MEAN CORPUSCULAR VOLUME 83.1 fL (81.0-99.0); MEAN PLATELET VOLUME 10.8 fl (7.4-10.4); MONOCYTES % 7.5 % (2.0-8.0); NEUTROPHILS % 72.3 % (40.0-76.0); PLATELET 167 x1000/uL (130-400); RED BLOOD CELL COUNT 3.97 mill/uL (4.2-5.4)
[2017-05-30] MEDS: INSULIN LISPRO 100 UNITS/ML SUBCUT SCH ×4 (07:50→21:52)
[2017-05-30 08:00] VITALS: BP 129/79
[2017-05-30] MEDS ORDERED: IPRATROPIUM BROMIDE (0.02%) 0.5MG/2.5ML NEB HHN PRN (08:30)
[2017-05-30] MEDS ORDERED: METHYLPREDNISOLONE SOD SUCC 40 MG/ML VIAL IV NR (08:30)
[2017-05-30] MEDS: FERROUS SULFATE 325MG TABLET PO SCH ×3 (09:21→17:21)
[2017-05-30] MEDS: RANOLAZINE 500 MG TAB.SR.12H PO SCH ×2 (09:21→21:47)
[2017-05-30] MEDS: POTASSIUM CHLORIDE 20MEQ TABLET SR PO SCH (09:22)
[2017-05-30] MEDS: FUROSEMIDE 20MG TABLET PO SCH ×2 (09:22→21:47)
[2017-05-30] MEDS: SPIRONOLACTONE 25MG TABLET PO SCH (09:22)
[2017-05-30] MEDS: ALLOPURINOL 100 MG TABLET PO SCH (09:22)
[2017-05-30] MEDS: MULTIVITAMINS,THER W-MINERALS TABLET PO SCH (09:22)
[2017-05-30] MEDS: CARVEDILOL 3.125 MG TABLET PO SCH ×2 (09:22→21:48)
[2017-05-30] MEDS: GABAPENTIN 100MG CAPSULE PO SCH ×2 (09:22→17:21)
[2017-05-30] MEDS: IPRATROPIUM/ALBUTEROL 0.5-3(2.5)MG/3ML NEB HHN SCH ×3 (11:44→20:55)
[2017-05-30 11:54] VITALS: BP 110/77
[2017-05-30 16:00] VITALS: BP 119/87
[2017-05-30] MEDS: DIGOXIN 125MCG TABLET PO SCH (17:21)
[2017-05-30 20:00] VITALS: BP 139/88
[2017-05-30] MEDS: MONTELUKAST SODIUM 10MG TABLET PO SCH (21:47)
[2017-05-31] VITALS: BP 139/99
[2017-05-31] MEDS: IPRATROPIUM/ALBUTEROL 0.5-3(2.5)MG/3ML NEB HHN SCH ×4 (00:31→15:00)
[2017-05-31] MEDS: DILTIAZEM HCL 90MG TABLET PO SCH ×3 (00:39→13:33)
[2017-05-31 04:00] VITALS: BP 145/98
[2017-05-31] MEDS: OMEPRAZOLE 20MG CAPSULE EXTENDED RELEASE PO SCH (06:36)
[2017-05-31] MEDS: BLOOD SUGAR DIAGNOSTIC STRIP TEST SCH ×2 (06:37→11:47)
[2017-05-31 06:47] LABS: HEMATOCRIT. 31.5 % (36.0-48.0); HEMOGLOBIN. 10.2 g/dL (12.0-16.0); MEAN CORPUSCULAR HEMOGLOBIN 26.6 pg (28.0-32.0); MEAN CORPUSCULAR VOLUME 82.2 fL (81.0-99.0); MEAN PLATELET VOLUME 10.2 fl (7.4-10.4); PLATELET 175 x1000/uL (130-400); RED BLOOD CELL COUNT 3.83 mill/uL (4.2-5.4); RED CELL DISTRIBUTION WIDTH 18.4 % (11.6-14.6)
[2017-05-31] MEDS: INSULIN LISPRO 100 UNITS/ML SUBCUT SCH ×2 (07:50→12:50)
[2017-05-31 08:00] VITALS: BP 132/82
[2017-05-31] MEDS: MULTIVITAMINS,THER W-MINERALS TABLET PO SCH (08:15)
[2017-05-31] MEDS: RANOLAZINE 500 MG TAB.SR.12H PO SCH (08:15)
[2017-05-31] MEDS: SPIRONOLACTONE 25MG TABLET PO SCH (08:15)
[2017-05-31] MEDS: ALLOPURINOL 100 MG TABLET PO SCH (08:15)
[2017-05-31] MEDS: POTASSIUM CHLORIDE 20MEQ TABLET SR PO SCH (08:15)
[2017-05-31] MEDS: GABAPENTIN 100MG CAPSULE PO SCH (08:15)
[2017-05-31] MEDS: CARVEDILOL 3.125 MG TABLET PO SCH (08:15)
[2017-05-31] MEDS: FUROSEMIDE 20MG TABLET PO SCH (08:15)
[2017-05-31] MEDS: FERROUS SULFATE 325MG TABLET PO SCH ×2 (08:15→13:33)
[2017-05-31 08:55] LABS: BG CARBOXYHEMOGLOBIN 0.4 % (0.5-1.5); BG FRACTION INSPIRED OXYGEN 21; BG HCO3 ACT 22.5 mmol/L (22.0-26.0); BG METHEMOGLOBIN 0.4 % (0.0-1.5); BG OXYHEMOGLOBIN 94.2 % (94.0-97.0); BG PCO2 33.6 mmHg (35.0-45.0); BG PH 7.444 (7.350-7.450); BG PO2 77.1 mmHg (75.0-100.0); BG SAMPLE SITE RIGHT RADIAL; BG TOTAL HEMOGLOBIN 11.4 g/dL (12.0-18.0); BG VENT MODE ROOM AIR
[2017-05-31 11:29] LABS: NUCLEATED RED BLOOD CELLS 1 /100 WBC; PLATELET ESTIMATE NORMAL
[2017-05-31 12:00] VITALS: BP 134/86
[2017-05-31 14:11] VITALS: BP 134/86
[2017-05-31 16:00] VITALS: BP 124/77
[2017-05-31] MEDS ORDERED: HYDROCORTISONE ACETATE 25MG SUPP PR SCH (21:00)
== END 2017-05-31 18:15 | disposition home or self-care (01) | DRG 191 ==
LOC: ER 15:59 → ENRESERV 18:50 → 6WST 19:06 → EDBEDREQ 19:11
PROVIDERS: ADMIT Family Medicine Adult Medicine; ATTEND Family Medicine Adult Medicine
DX: J44.1 Chronic obstructive pulmonary disease with (acute) exacerbation (principal); I13.0 Hypertensive heart and chronic kidney disease with heart failure and stage 1 through stage 4 chronic kidney disease, or unspecified chronic kidney disease; E44.1 Mild protein-calorie malnutrition; R07.89 Other chest pain; E11.22 Type 2 diabetes mellitus with diabetic chronic kidney disease; E11.51 Type 2 diabetes mellitus with diabetic peripheral angiopathy without gangrene; I50.9 Heart failure, unspecified; I25.5 Ischemic cardiomyopathy; N18.2 Chronic kidney disease, stage 2 (mild); I48.2 Chronic atrial fibrillation; I25.2 Old myocardial infarction; Z79.899 Other long term (current) drug therapy; Z79.4 Long term (current) use of insulin; I25.10 Atherosclerotic heart disease of native coronary artery without angina pectoris; Z90.49 Acquired absence of other specified parts of digestive tract
CPT/HCPCS: 36415; 36600; 71010; 80048; 80076; 80162; 82375; 82805; 82962; 83735; 83880; 84484; 85025; 85610; 93005; 93970; 94640; 99285; C1893; J1815; J2405; J2920; J7620

== ENCOUNTER 2017-07-05 08:59 | Inpatient (IN) | payer MEDICARE, MEDICAID ==
[~2017-07-05] VITALS: Ht 162.6 cm; Wt 64.0 kg
[2017-07-05] MEDS: DILTIAZEM HCL 90MG TABLET PO SCH (06:00)
[~2017-07-05 08:59] MED LIST changes: -COLC0.6T66 PO; -NITR0.4T3 SL; +NITR0.4T49 SL; -NOVOLOG 70/30 SQ; -NOVOLOG SQ; -RANO500T3 PO; -TRAV2.5D BOTHEYE
[2017-07-05] MEDS ORDERED: ALBUTEROL (0.083%) 2.5MG/3ML NEB HHN STA (11:39)
[2017-07-05] MEDS ORDERED: FUROSEMIDE 40MG/4ML VIAL IV ONE (11:45)
[2017-07-05] MEDS ORDERED: ASPIRIN 81MG TABLET PO ONE (11:45)
[2017-07-05] MEDS ORDERED: NITROGLYCERIN OINT 1GM/INCH UDPKT TD ONE (11:45)
[2017-07-05 12:21] LABS: EOSINOPHILS % 0.3 % (0.0-5.0); HEMATOCRIT. 34.7 % (36.0-48.0); HEMOGLOBIN. 11.1 g/dL (12.0-16.0); LYMPHOCYTES % 12.2 % (20.0-50.0); MEAN CORPUSCULAR HEMOGLOBIN 26.3 pg (28.0-32.0); MEAN CORPUSCULAR VOLUME 82.8 fL (81.0-99.0); MONOCYTES % 7.8 % (2.0-8.0); NEUTROPHILS % 78.7 % (40.0-76.0); RED CELL DISTRIBUTION WIDTH 18.8 % (11.6-14.6)
[2017-07-05 12:34] LABS: CARBON DIOXIDE 23 mEq/L (21-32); CHLORIDE 107 mEq/L (98-107)
[2017-07-05 12:41] LABS: TROPONIN I 0.06 ng/mL (0.00-0.04)
[2017-07-05 12:45] LABS: PLATELET ESTIMATE NORMAL
[2017-07-05 12:46] LABS: MEAN PLATELET VOLUME 11.2 fl (7.4-10.4); PLATELET 146 x1000/uL (130-400)
[2017-07-05 12:48] LABS: INR 1.3; PARTIAL THROMBOPLASTIN TIME 25.9 sec (23.4-31.0); PROTHROMBIN TIME 13.3 sec (9.4-11.6)
[2017-07-05 12:57] LABS: BG BASE EXCESS -2.9 mmol/L (-2.0-2.0); BG CARBOXYHEMOGLOBIN 0.6 % (0.5-1.5); BG DEOXYHEMOGLOBIN 3.4 % (0.0-5.0); BG FRACTION INSPIRED OXYGEN 21; BG HCO3 ACT 19.2 mmol/L (22.0-26.0); BG METHEMOGLOBIN 0.2 % (0.0-1.5); BG OXYGEN SATURATION 96.6 % (92.0-98.5); BG OXYHEMOGLOBIN 95.8 % (94.0-97.0); BG PCO2 25.6 mmHg (35.0-45.0); BG PH 7.492 (7.350-7.450); BG SAMPLE SITE RIGHT BRACHIAL; BG TOTAL HEMOGLOBIN 11.6 g/dL (12.0-18.0); BG VENT MODE ROOM AIR
[2017-07-05] MEDS ORDERED: LEVOFLOXACIN 500MG PREMIX 100 ML IV NR (16:00)
[2017-07-05] MEDS ORDERED: FAMOTIDINE 20MG/2ML VIAL IV ONE (16:15)
[2017-07-05] MEDS ORDERED: NITROGLYCERIN 0.4MG TABLET SL SL PRN (16:30)
[2017-07-05] MEDS ORDERED: ACETAMINOPHEN 325MG TABLET PO PRN (16:30)
[2017-07-05] MEDS ORDERED: CLONIDINE 0.1MG TABLET PO PRN (16:30)
[2017-07-05] MEDS: HYDROCODONE/ACETAMINOPHEN 5/325MG TABLET PO PRN (18:39)
[2017-07-05] MEDS ORDERED: DILTIAZEM HCL 5MG/ML 5ML VIAL IV PRN (21:46)
[2017-07-05] MEDS ORDERED: DIGOXIN 500MCG/2ML AMP IV SCH (22:30)
[2017-07-05] MEDS ORDERED: ENOXAPARIN 30MG/0.3ML SYR SUBCUT SCH (22:30)
[2017-07-05] MEDS ORDERED: ZOLPIDEM TARTRATE 5MG TABLET PO PRN (22:30)
[2017-07-06] VITALS: BP 157/100
[2017-07-06 00:44] VITALS: BP 151/86
[2017-07-06 04:00] VITALS: BP 146/85
[2017-07-06] MEDS: IPRATROPIUM/ALBUTEROL 0.5-3(2.5)MG/3ML NEB HHN PRN ×3 (04:18→16:02)
[2017-07-06] MEDS: MONTELUKAST SODIUM 10MG TABLET PO SCH ×3 (04:24→21:19)
[2017-07-06] MEDS: DILTIAZEM HCL 90MG TABLET PO SCH ×2 (04:33→12:50)
[2017-07-06 06:29] LABS: BASOPHILS % 0.7 % (0.0-2.0); EOSINOPHILS % 0.4 % (0.0-5.0); HEMATOCRIT. 31.4 % (36.0-48.0); LYMPHOCYTES % 17.3 % (20.0-50.0); MEAN CORPUSCULAR VOLUME 81.3 fL (81.0-99.0); MEAN PLATELET VOLUME 11.4 fl (7.4-10.4); MONOCYTES % 7.2 % (2.0-8.0); NEUTROPHILS % 74.4 % (40.0-76.0); PLATELET 149 x1000/uL (130-400); RED BLOOD CELL COUNT 3.86 mill/uL (4.2-5.4); RED CELL DISTRIBUTION WIDTH 18.8 % (11.6-14.6)
[2017-07-06] MEDS: OMEPRAZOLE 20MG CAPSULE EXTENDED RELEASE PO SCH (06:54)
[2017-07-06 08:11] VITALS: BP 140/83
[2017-07-06 08:17] LABS: TROPONIN I 0.06 ng/mL (0.00-0.04)
[2017-07-06] MEDS ORDERED: FUROSEMIDE 40MG/4ML VIAL IVP SCH (09:00)
[2017-07-06] MEDS: GABAPENTIN 100MG CAPSULE PO SCH ×2 (09:09→16:16)
[2017-07-06] MEDS: SPIRONOLACTONE 25MG TABLET PO SCH (09:09)
[2017-07-06] MEDS: FERROUS SULFATE 325MG TABLET PO SCH ×3 (09:09→17:36)
[2017-07-06] MEDS: DOCUSATE SODIUM 100MG CAPSULE PO SCH ×2 (09:09→16:16)
[2017-07-06] MEDS: ALLOPURINOL 100 MG TABLET PO SCH (09:09)
[2017-07-06 11:36] VITALS: BP 146/81
[2017-07-06] MEDS ORDERED: MAGNESIUM/ALUMINUM HYDROXIDE/SIMETHICONE 30ML UDC PO PRN (13:15)
[2017-07-06] MEDS ORDERED: OMEPRAZOLE 20MG CAPSULE EXTENDED RELEASE PO SCH (13:15)
[2017-07-06] MEDS ORDERED: CELECOXIB 200MG CAPSULE PO NR (15:30)
[2017-07-06 16:00] VITALS: BP 128/66
[2017-07-06 16:08] LABS: CLARITY URINE CLEAR (CLEAR); COLOR URINE YELLOW (YELLOW); GLUCOSE URINE NEGATIVE (NEGATIVE); KETONES URINE NEGATIVE (NEGATIVE); LEUKOCYTE ESTERASE URINE NEGATIVE (NEGATIVE); NITRITE URINE NEGATIVE (NEGATIVE); OCCULT BLOOD URINE NEGATIVE (NEGATIVE); PROTEIN URINE NEGATIVE (NEGATIVE); SPECIFIC GRAVITY URINE 1.011 (1.005-1.030); UROBILINOGEN URINE 0.2 E.U./dL (0.2-1.0)
[2017-07-06] MEDS: HYDROCODONE/ACETAMINOPHEN 5/325MG TABLET PO PRN (16:17)
[2017-07-06] MEDS ORDERED: DEXTROSE 50% WATER 50ML SYRINGE IV PRN (19:30)
[2017-07-06] MEDS: INSULIN LISPRO 100 UNITS/ML SUBCUT SCH (21:00)
[2017-07-06] MEDS: BLOOD SUGAR DIAGNOSTIC STRIP TEST SCH (21:11)
[2017-07-06] MEDS: CARVEDILOL 3.125 MG TABLET PO SCH (21:16)
[2017-07-06] MEDS: DILTIAZEM HCL 30MG TABLET PO SCH (21:17)
[2017-07-07] VITALS (7 sets, daily range): BP systolic 126–150; BP diastolic 68–103
[2017-07-07] MEDS: OMEPRAZOLE 20MG CAPSULE EXTENDED RELEASE PO SCH (05:53)
[2017-07-07] MEDS: DILTIAZEM HCL 30MG TABLET PO SCH ×2 (05:53→13:14)
[2017-07-07] MEDS: DOCUSATE SODIUM 100MG CAPSULE PO SCH ×2 (05:59→17:28)
[2017-07-07 07:02] LABS: BASOPHILS % 0.9 % (0.0-2.0); EOSINOPHILS % 1.2 % (0.0-5.0); HEMATOCRIT. 32.5 % (36.0-48.0); HEMOGLOBIN. 10.3 g/dL (12.0-16.0); LYMPHOCYTES % 15.7 % (20.0-50.0); MEAN CORPUSCULAR HEMOGLOBIN 25.9 pg (28.0-32.0); MEAN CORPUSCULAR VOLUME 81.7 fL (81.0-99.0); MEAN PLATELET VOLUME 10.7 fl (7.4-10.4); MONOCYTES % 7.3 % (2.0-8.0); NEUTROPHILS % 74.9 % (40.0-76.0); PLATELET 161 x1000/uL (130-400); RED BLOOD CELL COUNT 3.98 mill/uL (4.2-5.4)
[2017-07-07] MEDS: INSULIN LISPRO 100 UNITS/ML SUBCUT SCH ×4 (07:50→21:00)
[2017-07-07] MEDS: BLOOD SUGAR DIAGNOSTIC STRIP TEST SCH ×4 (07:56→21:01)
[2017-07-07] MEDS: SPIRONOLACTONE 25MG TABLET PO SCH (09:21)
[2017-07-07] MEDS: GABAPENTIN 100MG CAPSULE PO SCH ×2 (09:21→17:28)
[2017-07-07] MEDS: ALLOPURINOL 100 MG TABLET PO SCH (09:22)
[2017-07-07] MEDS: TRAMADOL 50MG TABLET PO PRN ×2 (09:22→15:51)
[2017-07-07] MEDS: FERROUS SULFATE 325MG TABLET PO SCH ×3 (09:22→17:28)
[2017-07-07] MEDS: CARVEDILOL 3.125 MG TABLET PO SCH (09:24)
[2017-07-07] MEDS: DILTIAZEM HCL 60MG TABLET PO SCH ×2 (14:00→21:00)
[2017-07-07] MEDS ORDERED: LACTULOSE 20G/30ML UDC PO PRN (18:30)
[2017-07-07] MEDS: MONTELUKAST SODIUM 10MG TABLET PO SCH (21:00)
[2017-07-07] MEDS: ATORVASTATIN CALCIUM 20MG TABLET PO SCH (21:01)
[2017-07-07] MEDS: CARVEDILOL 6.25 MG TABLET PO SCH (21:01)
[2017-07-08] VITALS (7 sets, daily range): BP systolic 112–151; BP diastolic 73–98
[2017-07-08] MEDS: DILTIAZEM HCL 60MG TABLET PO SCH ×3 (06:39→21:05)
[2017-07-08] MEDS: FAMOTIDINE 20MG TABLET PO SCH (06:40)
[2017-07-08] MEDS: INSULIN LISPRO 100 UNITS/ML SUBCUT SCH ×4 (06:41→21:00)
[2017-07-08] MEDS: BLOOD SUGAR DIAGNOSTIC STRIP TEST SCH ×4 (06:41→21:05)
[2017-07-08 07:21] LABS: BASOPHILS % 0.6 % (0.0-2.0); EOSINOPHILS % 1.3 % (0.0-5.0); HEMATOCRIT. 31.3 % (36.0-48.0); HEMOGLOBIN. 10.2 g/dL (12.0-16.0); LYMPHOCYTES % 18.8 % (20.0-50.0); MEAN CORPUSCULAR HEMOGLOBIN 26.2 pg (28.0-32.0); MEAN PLATELET VOLUME 10.4 fl (7.4-10.4); MONOCYTES % 7.4 % (2.0-8.0); NEUTROPHILS % 71.9 % (40.0-76.0); PLATELET 168 x1000/uL (130-400); RED BLOOD CELL COUNT 3.87 mill/uL (4.2-5.4); RED CELL DISTRIBUTION WIDTH 18.4 % (11.6-14.6)
[2017-07-08] MEDS: ALLOPURINOL 100 MG TABLET PO SCH (08:29)
[2017-07-08] MEDS: DOCUSATE SODIUM 100MG CAPSULE PO SCH ×2 (08:29→17:22)
[2017-07-08] MEDS: CARVEDILOL 6.25 MG TABLET PO SCH ×2 (08:29→21:05)
[2017-07-08] MEDS: GABAPENTIN 100MG CAPSULE PO SCH ×2 (08:29→17:22)
[2017-07-08] MEDS: FERROUS SULFATE 325MG TABLET PO SCH ×3 (08:29→17:40)
[2017-07-08] MEDS: LACTULOSE 20G/30ML UDC PO SCH (09:45)
[2017-07-08] MEDS ORDERED: POTASSIUM CHLORIDE 20MEQ TABLET SR PO NR (10:45)
[2017-07-08] MEDS ORDERED: IOHEXOL-300 100 ML BOTTLE ONE (11:02)
[2017-07-08] MEDS ORDERED: SODIUM CHLORIDE 0.9% 10ML VIAL ONE (11:02)
[2017-07-08] MEDS ORDERED: ENOXAPARIN 60MG/0.6ML SYR SUBCUT SCH (12:00)
[2017-07-08] MEDS: MONTELUKAST SODIUM 10MG TABLET PO SCH (21:04)
[2017-07-08] MEDS: ATORVASTATIN CALCIUM 20MG TABLET PO SCH (21:04)
[2017-07-09] VITALS (8 sets, daily range): BP systolic 120–156; BP diastolic 68–96
[2017-07-09] MEDS: BLOOD SUGAR DIAGNOSTIC STRIP TEST SCH ×4 (06:20→21:26)
[2017-07-09] MEDS: FAMOTIDINE 20MG TABLET PO SCH (06:30)
[2017-07-09] MEDS: DILTIAZEM HCL 60MG TABLET PO SCH ×3 (06:31→21:40)
[2017-07-09] MEDS: INSULIN LISPRO 100 UNITS/ML SUBCUT SCH ×4 (07:50→21:00)
[2017-07-09] MEDS: DOCUSATE SODIUM 100MG CAPSULE PO SCH ×2 (08:25→17:25)
[2017-07-09] MEDS: GABAPENTIN 100MG CAPSULE PO SCH ×2 (08:25→17:25)
[2017-07-09] MEDS: CARVEDILOL 6.25 MG TABLET PO SCH ×2 (08:26→21:35)
[2017-07-09] MEDS: ALLOPURINOL 100 MG TABLET PO SCH (08:26)
[2017-07-09] MEDS: FERROUS SULFATE 325MG TABLET PO SCH ×3 (08:27→17:25)
[2017-07-09] MEDS: HYDROCODONE/ACETAMINOPHEN 5/325MG TABLET PO PRN ×3 (08:28→17:27)
[2017-07-09] MEDS: LACTULOSE 20G/30ML UDC PO SCH (08:33)
[2017-07-09 08:45] LABS: BASOPHILS % 0.9 % (0.0-2.0); EOSINOPHILS % 1.9 % (0.0-5.0); HEMATOCRIT. 32.9 % (36.0-48.0); HEMOGLOBIN. 10.4 g/dL (12.0-16.0); LYMPHOCYTES % 14.4 % (20.0-50.0); MEAN CORPUSCULAR HEMOGLOBIN 25.8 pg (28.0-32.0); MEAN CORPUSCULAR VOLUME 81.7 fL (81.0-99.0); MEAN PLATELET VOLUME 10.2 fl (7.4-10.4); MONOCYTES % 6.3 % (2.0-8.0); NEUTROPHILS % 76.5 % (40.0-76.0); PLATELET 184 x1000/uL (130-400); RED BLOOD CELL COUNT 4.03 mill/uL (4.2-5.4); RED CELL DISTRIBUTION WIDTH 19.4 % (11.6-14.6)
[2017-07-09] MEDS ORDERED: SODIUM BICARBONATE 4.2% 5 MEQ/10 ML DISP.SYRIN IV ONE (13:05)
[2017-07-09] MEDS: MONTELUKAST SODIUM 10MG TABLET PO SCH (21:35)
[2017-07-09] MEDS: ATORVASTATIN CALCIUM 20MG TABLET PO SCH (21:35)
[2017-07-10] VITALS (9 sets, daily range): BP systolic 119–149; BP diastolic 60–91
[2017-07-10] MEDS: DILTIAZEM HCL 60MG TABLET PO SCH ×3 (06:36→22:28)
[2017-07-10] MEDS: BLOOD SUGAR DIAGNOSTIC STRIP TEST SCH ×4 (06:36→20:45)
[2017-07-10] MEDS: FAMOTIDINE 20MG TABLET PO SCH (06:36)
[2017-07-10 07:47] LABS: CHLORIDE 107 mEq/L (98-107)
[2017-07-10] MEDS: INSULIN LISPRO 100 UNITS/ML SUBCUT SCH ×4 (07:50→20:45)
[2017-07-10 07:55] LABS: CARBON DIOXIDE 23 mEq/L (21-32)
[2017-07-10] MEDS: FERROUS SULFATE 325MG TABLET PO SCH ×3 (08:13→18:04)
[2017-07-10] MEDS: CARVEDILOL 6.25 MG TABLET PO SCH (08:15)
[2017-07-10] MEDS: HYDROCODONE/ACETAMINOPHEN 5/325MG TABLET PO PRN (08:15)
[2017-07-10] MEDS: GABAPENTIN 100MG CAPSULE PO SCH ×2 (08:16→18:04)
[2017-07-10] MEDS: DOCUSATE SODIUM 100MG CAPSULE PO SCH ×2 (08:17→18:04)
[2017-07-10] MEDS: LACTULOSE 20G/30ML UDC PO SCH (08:17)
[2017-07-10] MEDS: ALLOPURINOL 100 MG TABLET PO SCH (08:20)
[2017-07-10 08:33] LABS: BASOPHILS % 0.4 % (0.0-2.0); EOSINOPHILS % 1.4 % (0.0-5.0); HEMATOCRIT. 34.7 % (36.0-48.0); HEMOGLOBIN. 11.3 g/dL (12.0-16.0); LYMPHOCYTES % 12.8 % (20.0-50.0); MEAN CORPUSCULAR HEMOGLOBIN 26.5 pg (28.0-32.0); MEAN CORPUSCULAR VOLUME 81.5 fL (81.0-99.0); MEAN PLATELET VOLUME 10.9 fl (7.4-10.4); MONOCYTES % 4.9 % (2.0-8.0); NEUTROPHILS % 80.5 % (40.0-76.0); PLATELET 194 x1000/uL (130-400); RED BLOOD CELL COUNT 4.26 mill/uL (4.2-5.4); RED CELL DISTRIBUTION WIDTH 19.4 % (11.6-14.6)
[2017-07-10] MEDS: ATORVASTATIN CALCIUM 20MG TABLET PO SCH (20:44)
[2017-07-10] MEDS: MONTELUKAST SODIUM 10MG TABLET PO SCH (20:44)
[2017-07-10] MEDS: CARVEDILOL 12.5MG TABLET PO SCH (20:45)
[2017-07-11 04:00] VITALS: BP 115/73
[2017-07-11] MEDS: FAMOTIDINE 20MG TABLET PO SCH (06:27)
[2017-07-11] MEDS: DILTIAZEM HCL 60MG TABLET PO SCH ×3 (06:28→21:16)
[2017-07-11] MEDS: BLOOD SUGAR DIAGNOSTIC STRIP TEST SCH ×4 (06:28→21:16)
[2017-07-11 07:22] LABS: BASOPHILS % 0.7 % (0.0-2.0); EOSINOPHILS % 1.6 % (0.0-5.0); HEMATOCRIT. 31.7 % (36.0-48.0); HEMOGLOBIN. 10.1 g/dL (12.0-16.0); LYMPHOCYTES % 12.3 % (20.0-50.0); MEAN CORPUSCULAR HEMOGLOBIN 25.9 pg (28.0-32.0); MEAN CORPUSCULAR VOLUME 81.2 fL (81.0-99.0); MEAN PLATELET VOLUME 9.9 fl (7.4-10.4); MONOCYTES % 5.4 % (2.0-8.0); PLATELET 162 x1000/uL (130-400); RED CELL DISTRIBUTION WIDTH 19.3 % (11.6-14.6)
[2017-07-11] MEDS: INSULIN LISPRO 100 UNITS/ML SUBCUT SCH ×4 (07:50→21:00)
[2017-07-11 08:00] VITALS: BP 130/78
[2017-07-11 08:03] LABS: CHLORIDE 110 mEq/L (98-107)
[2017-07-11 08:13] LABS: CARBON DIOXIDE 22 mEq/L (21-32)
[2017-07-11] MEDS: GABAPENTIN 100MG CAPSULE PO SCH ×2 (08:44→17:09)
[2017-07-11] MEDS: FERROUS SULFATE 325MG TABLET PO SCH ×3 (08:44→17:09)
[2017-07-11] MEDS: ALLOPURINOL 100 MG TABLET PO SCH (08:44)
[2017-07-11] MEDS: DOCUSATE SODIUM 100MG CAPSULE PO SCH ×2 (08:44→17:09)
[2017-07-11] MEDS: CARVEDILOL 12.5MG TABLET PO SCH ×2 (08:44→21:16)
[2017-07-11] MEDS: LACTULOSE 20G/30ML UDC PO SCH (08:45)
[2017-07-11 12:00] VITALS: BP_SYST 111; BP_SYST 113; BP_SYST 117; BP_DIAS 57; BP_DIAS 58; BP_DIAS 66
[2017-07-11 16:00] VITALS: BP 117/85
[2017-07-11 20:00] VITALS: BP_SYST 133; BP_SYST 139; BP_SYST 144; BP_DIAS 78; BP_DIAS 86; BP_DIAS 88
[2017-07-11] MEDS: ATORVASTATIN CALCIUM 20MG TABLET PO SCH (21:15)
[2017-07-11] MEDS: MONTELUKAST SODIUM 10MG TABLET PO SCH (21:16)
[2017-07-12] VITALS: BP 140/88
[2017-07-12] MEDS: IPRATROPIUM/ALBUTEROL 0.5-3(2.5)MG/3ML NEB HHN PRN ×2 (04:26→23:05)
[2017-07-12 05:28] VITALS: BP 136/78
[2017-07-12] MEDS: FAMOTIDINE 20MG TABLET PO SCH (06:29)
[2017-07-12] MEDS: DILTIAZEM HCL 60MG TABLET PO SCH (06:30)
[2017-07-12] MEDS: BLOOD SUGAR DIAGNOSTIC STRIP TEST SCH ×4 (06:32→21:07)
[2017-07-12] MEDS: INSULIN LISPRO 100 UNITS/ML SUBCUT SCH ×4 (07:50→21:00)
[2017-07-12] MEDS: GABAPENTIN 100MG CAPSULE PO SCH ×2 (09:33→17:41)
[2017-07-12] MEDS: DOCUSATE SODIUM 100MG CAPSULE PO SCH ×2 (09:33→17:41)
[2017-07-12] MEDS: LACTULOSE 20G/30ML UDC PO SCH (09:33)
[2017-07-12] MEDS: FERROUS SULFATE 325MG TABLET PO SCH ×3 (09:33→17:43)
[2017-07-12] MEDS: ALLOPURINOL 100 MG TABLET PO SCH (09:33)
[2017-07-12] MEDS: LOSARTAN POTASSIUM 25 MG TABLET PO SCH (10:30)
[2017-07-12] MEDS: FUROSEMIDE 20MG TABLET PO SCH ×2 (10:30→21:01)
[2017-07-12 16:00] VITALS: BP 125/74
[2017-07-12 20:00] VITALS: BP_SYST 132; BP_SYST 139; BP_SYST 145; BP_DIAS 77; BP_DIAS 78; BP_DIAS 85
[2017-07-12] MEDS ORDERED: THROAT LOZENGES-BENZOCAINE/MENTH/CETYLPYRD CL LOZENGES MM PRN (20:00)
[2017-07-12] MEDS: MONTELUKAST SODIUM 10MG TABLET PO SCH (21:01)
[2017-07-12] MEDS: TRAMADOL 50MG TABLET PO PRN (21:01)
[2017-07-12] MEDS: AMLODIPINE 5MG TABLET PO SCH (22:06)
[2017-07-12] MEDS: ATORVASTATIN CALCIUM 20MG TABLET PO SCH (22:06)
[2017-07-13] VITALS (7 sets, daily range): BP systolic 104–149; BP diastolic 57–89
[2017-07-13] MEDS: BLOOD SUGAR DIAGNOSTIC STRIP TEST SCH ×4 (06:12→20:46)
[2017-07-13] MEDS: FAMOTIDINE 20MG TABLET PO SCH (06:12)
[2017-07-13 06:34] LABS: BASOPHILS % 0.7 % (0.0-2.0); EOSINOPHILS % 1.6 % (0.0-5.0); HEMATOCRIT. 31.7 % (36.0-48.0); HEMOGLOBIN. 10.2 g/dL (12.0-16.0); LYMPHOCYTES % 11.1 % (20.0-50.0); MEAN CORPUSCULAR HEMOGLOBIN 26.3 pg (28.0-32.0); MEAN CORPUSCULAR VOLUME 81.8 fL (81.0-99.0); MEAN PLATELET VOLUME 10.1 fl (7.4-10.4); MONOCYTES % 7.5 % (2.0-8.0); NEUTROPHILS % 79.1 % (40.0-76.0); PLATELET 147 x1000/uL (130-400); RED BLOOD CELL COUNT 3.88 mill/uL (4.2-5.4); RED CELL DISTRIBUTION WIDTH 19.6 % (11.6-14.6)
[2017-07-13] MEDS: INSULIN LISPRO 100 UNITS/ML SUBCUT SCH ×4 (07:39→20:46)
[2017-07-13] MEDS: AMLODIPINE 5MG TABLET PO SCH ×2 (08:14→20:46)
[2017-07-13] MEDS: FUROSEMIDE 20MG TABLET PO SCH ×2 (08:14→20:46)
[2017-07-13] MEDS: LOSARTAN POTASSIUM 25 MG TABLET PO SCH (08:14)
[2017-07-13] MEDS: FERROUS SULFATE 325MG TABLET PO SCH ×3 (08:14→17:05)
[2017-07-13] MEDS: DOCUSATE SODIUM 100MG CAPSULE PO SCH ×2 (08:14→16:29)
[2017-07-13] MEDS: LACTULOSE 20G/30ML UDC PO SCH (08:14)
[2017-07-13] MEDS: GABAPENTIN 100MG CAPSULE PO SCH ×2 (08:14→16:29)
[2017-07-13 08:15] LABS: CHLORIDE 109 mEq/L (98-107)
[2017-07-13] MEDS: ALLOPURINOL 100 MG TABLET PO SCH (08:15)
[2017-07-13] MEDS: TRAMADOL 50MG TABLET PO PRN (08:18)
[2017-07-13 08:21] LABS: CARBON DIOXIDE 24 mEq/L (21-32)
[2017-07-13] MEDS: CARVEDILOL 6.25 MG TABLET PO SCH ×2 (11:55→20:46)
[2017-07-13] MEDS ORDERED: ACETAMINOPHEN 325MG TABLET PO PRN (12:00)
[2017-07-13] MEDS: DIGOXIN 125MCG TABLET PO SCH (17:05)
[2017-07-13] MEDS: MONTELUKAST SODIUM 10MG TABLET PO SCH (20:45)
[2017-07-13] MEDS: ATORVASTATIN CALCIUM 20MG TABLET PO SCH (20:45)
[2017-07-14 00:23] VITALS: BP 132/75
[2017-07-14 04:00] VITALS: BP 126/88
[2017-07-14] MEDS: TRAMADOL 50MG TABLET PO PRN (06:17)
[2017-07-14] MEDS: FAMOTIDINE 20MG TABLET PO SCH (06:17)
[2017-07-14 06:47] LABS: BASOPHILS % 0.7 % (0.0-2.0); EOSINOPHILS % 1.9 % (0.0-5.0); HEMATOCRIT. 32.2 % (36.0-48.0); HEMOGLOBIN. 10.3 g/dL (12.0-16.0); LYMPHOCYTES % 13.4 % (20.0-50.0); MEAN CORPUSCULAR HEMOGLOBIN 26.1 pg (28.0-32.0); MEAN CORPUSCULAR VOLUME 81.2 fL (81.0-99.0); MEAN PLATELET VOLUME 10.1 fl (7.4-10.4); MONOCYTES % 5.3 % (2.0-8.0); NEUTROPHILS % 78.7 % (40.0-76.0); PLATELET 151 x1000/uL (130-400); RED BLOOD CELL COUNT 3.96 mill/uL (4.2-5.4); RED CELL DISTRIBUTION WIDTH 19.9 % (11.6-14.6)
[2017-07-14 07:27] VITALS: BP 133/79
[2017-07-14] MEDS: INSULIN LISPRO 100 UNITS/ML SUBCUT SCH ×3 (07:50→17:50)
[2017-07-14] MEDS: BLOOD SUGAR DIAGNOSTIC STRIP TEST SCH ×3 (07:53→18:10)
[2017-07-14] MEDS: GABAPENTIN 100MG CAPSULE PO SCH ×2 (08:41→18:12)
[2017-07-14] MEDS: FUROSEMIDE 20MG TABLET PO SCH (08:41)
[2017-07-14] MEDS: ALLOPURINOL 100 MG TABLET PO SCH (08:41)
[2017-07-14] MEDS: LACTULOSE 20G/30ML UDC PO SCH (08:41)
[2017-07-14] MEDS: DOCUSATE SODIUM 100MG CAPSULE PO SCH ×2 (08:41→17:00)
[2017-07-14] MEDS: FERROUS SULFATE 325MG TABLET PO SCH ×3 (08:41→18:10)
[2017-07-14] MEDS: LOSARTAN POTASSIUM 25 MG TABLET PO SCH (08:42)
[2017-07-14] MEDS: AMLODIPINE 5MG TABLET PO SCH (08:42)
[2017-07-14] MEDS: CARVEDILOL 6.25 MG TABLET PO SCH (08:42)
[2017-07-14 11:19] VITALS: BP 134/73
[2017-07-14 13:46] VITALS: BP 126/67
[2017-07-14 15:36] VITALS: BP 126/67
[2017-07-14] MEDS: DIGOXIN 125MCG TABLET PO SCH (18:10)
== END 2017-07-14 19:05 | disposition home or self-care (01) | DRG 291 ==
LOC: ER 09:26 → 6WST 17:23 → EDBEDREQ 17:26 → ENRESERV 20:14
PROVIDERS: ADMIT Family Medicine Adult Medicine; ATTEND Family Medicine Adult Medicine
PROC: 0W993ZX Drainage of Right Pleural Cavity, Percutaneous Approach, Diagnostic (ICD-10-PCS; principal; 2017-07-09)
DX: I13.0 Hypertensive heart and chronic kidney disease with heart failure and stage 1 through stage 4 chronic kidney disease, or unspecified chronic kidney disease (principal); I50.23 Acute on chronic systolic (congestive) heart failure; I47.2 Ventricular tachycardia; N17.9 Acute kidney failure, unspecified; E11.22 Type 2 diabetes mellitus with diabetic chronic kidney disease; I48.1 Persistent atrial fibrillation; J90 Pleural effusion, not elsewhere classified; J44.0 Chronic obstructive pulmonary disease with (acute) lower respiratory infection; E86.0 Dehydration; I42.0 Dilated cardiomyopathy; I48.2 Chronic atrial fibrillation; E44.1 Mild protein-calorie malnutrition; N18.9 Chronic kidney disease, unspecified; Z96.653 Presence of artificial knee joint, bilateral; I27.2 Other secondary pulmonary hypertension; D64.9 Anemia, unspecified; I25.10 Atherosclerotic heart disease of native coronary artery without angina pectoris; I25.5 Ischemic cardiomyopathy; M10.9 Gout, unspecified; Z87.891 Personal history of nicotine dependence; Z90.49 Acquired absence of other specified parts of digestive tract; Z95.5 Presence of coronary angioplasty implant and graft; Z68.24 Body mass index [BMI] 24.0-24.9, adult; Z79.899 Other long term (current) drug therapy
CPT/HCPCS: 32555; 36415; 36600; 70544; 70553; 71010; 71270; 74178; 80048; 80053; 80162; 81003; 82375; 82805; 82945; 82962; 83615; 83690; 83735; 83880; 84484; 85025; 85610; 85730; 87040; 87070; 87086; 87205; 88108; 88312; 89050; 93005; 93306; 93880; 93970; 94640; 94664; 96365; 96366; 96375; 97116; 97162; 97166; 99285; A4216; A6261; C1893; J1160; J1650; J1815; J1940; J1956; J3490; J7611; J7620; Q9967

== ENCOUNTER 2017-07-27 12:17 | Inpatient (IN) | payer MEDICARE, MEDICAID ==
[~2017-07-27] VITALS: Ht 162.6 cm; Wt 60.3 kg
[2017-07-27] MEDS ORDERED: ASPIRIN 81MG TABLET PO STA (13:37)
[2017-07-27] MEDS ORDERED: MORPHINE SULFATE 4 MG/ML CPJ (NOT FOR IM USE) IV STA (13:38)
[2017-07-27] MEDS ORDERED: NITROGLYCERIN OINT 1GM/INCH UDPKT TD STA (13:38)
[2017-07-27] MEDS ORDERED: FUROSEMIDE 40MG/4ML VIAL IV STA (13:38)
[2017-07-27] MEDS ORDERED: ONDANSETRON HCL 4MG/2ML VIAL IV STA (13:38)
[2017-07-27 14:33] LABS: BASOPHILS % 0.7 % (0.0-2.0); EOSINOPHILS % 0.1 % (0.0-5.0); HEMATOCRIT. 32.5 % (36.0-48.0); HEMOGLOBIN. 10.4 g/dL (12.0-16.0); MEAN CORPUSCULAR VOLUME 81.4 fL (81.0-99.0); MEAN PLATELET VOLUME 10.5 fl (7.4-10.4); MONOCYTES % 6.4 % (2.0-8.0); NEUTROPHILS % 84.8 % (40.0-76.0); PLATELET 191 x1000/uL (130-400); RED CELL DISTRIBUTION WIDTH 19.7 % (11.6-14.6)
[2017-07-27 14:38] LABS: CARBON DIOXIDE 26 mEq/L (21-32); CHLORIDE 108 mEq/L (98-107); INR 1.3; PARTIAL THROMBOPLASTIN TIME 27.2 sec (23.4-31.0); PROTHROMBIN TIME 13.1 sec (9.4-11.6)
[2017-07-27 14:46] LABS: TROPONIN I 0.09 ng/mL (0.00-0.04)
[2017-07-27] MEDS ORDERED: ENOXAPARIN 40MG/0.4ML SYR SUBCUT NR (16:30)
[2017-07-27] MEDS ORDERED: ONDANSETRON HCL 4MG/2ML VIAL IV PRN (20:45)
[2017-07-27] MEDS ORDERED: DOCUSATE SODIUM 100MG CAPSULE PO PRN (20:45)
[2017-07-27] MEDS ORDERED: ACETAMINOPHEN 325MG TABLET PO PRN (20:45)
[2017-07-27] MEDS ORDERED: ZOLPIDEM TARTRATE 5MG TABLET PO PRN (21:00)
[2017-07-28 00:36] VITALS: BP 145/92
[2017-07-28] MEDS ORDERED: DEXTROSE 50% WATER 50ML SYRINGE IV PRN (01:15)
[2017-07-28 04:00] VITALS: BP 144/86
[2017-07-28] MEDS ORDERED: DILTIAZEM HCL 90MG TABLET PO SCH (06:00)
[2017-07-28] MEDS: OMEPRAZOLE 20MG CAPSULE EXTENDED RELEASE PO SCH (06:28)
[2017-07-28] MEDS: BLOOD SUGAR DIAGNOSTIC STRIP TEST SCH ×4 (06:29→21:28)
[2017-07-28 07:09] LABS: TROPONIN I 0.09 ng/mL (0.00-0.04)
[2017-07-28 07:27] LABS: EOSINOPHILS % 1.4 % (0.0-5.0); HEMATOCRIT. 29.6 % (36.0-48.0); HEMOGLOBIN. 9.5 g/dL (12.0-16.0); LYMPHOCYTES % 9.7 % (20.0-50.0); MEAN CORPUSCULAR HEMOGLOBIN 26.3 pg (28.0-32.0); MEAN CORPUSCULAR VOLUME 81.8 fL (81.0-99.0); MEAN PLATELET VOLUME 10.7 fl (7.4-10.4); MONOCYTES % 7.4 % (2.0-8.0); NEUTROPHILS % 80.5 % (40.0-76.0); PLATELET 161 x1000/uL (130-400); RED BLOOD CELL COUNT 3.61 mill/uL (4.2-5.4); RED CELL DISTRIBUTION WIDTH 19.1 % (11.6-14.6)
[2017-07-28] MEDS: INSULIN LISPRO 100 UNITS/ML SUBCUT SCH ×4 (07:30→21:00)
[2017-07-28] MEDS: LOSARTAN POTASSIUM 25 MG TABLET PO SCH (09:00)
[2017-07-28] MEDS ORDERED: METOPROLOL TARTRATE 25MG TABLET PO SCH (09:00)
[2017-07-28] MEDS ORDERED: MEDICATION NOT ON FORMULARY EA (Multivitamin (Multi Vitamin Daily) 1 TAB) PO SCH (09:00)
[2017-07-28] MEDS: SPIRONOLACTONE 25MG TABLET PO SCH ×2 (09:00→10:34)
[2017-07-28] MEDS: FUROSEMIDE 40MG/4ML VIAL IVP SCH ×3 (09:00→18:33)
[2017-07-28] MEDS ORDERED: ENOXAPARIN 30MG/0.3ML SYR SUBCUT SCH ×2 (09:00→09:45)
[2017-07-28] MEDS ORDERED: OMEPRAZOLE 20MG CAPSULE EXTENDED RELEASE PO SCH (09:00)
[2017-07-28] MEDS: MULTIVITAMINS,THER W-MINERALS TABLET PO SCH (09:17)
[2017-07-28] MEDS: ALLOPURINOL 100 MG TABLET PO SCH (09:17)
[2017-07-28] MEDS: DOCUSATE SODIUM 100MG CAPSULE PO SCH ×2 (09:18→18:34)
[2017-07-28] MEDS: AMLODIPINE 5MG TABLET PO SCH (09:18)
[2017-07-28] MEDS: FERROUS SULFATE 325MG TABLET PO SCH ×3 (09:18→18:34)
[2017-07-28] MEDS: HYDROCODONE/ACETAMINOPHEN 5/325MG TABLET PO PRN ×2 (10:35→15:45)
[2017-07-28 12:00] VITALS: BP 128/70
[2017-07-28] MEDS: DILTIAZEM HCL 60MG TABLET PO SCH ×2 (14:35→22:15)
[2017-07-28 16:00] VITALS: BP 139/90
[2017-07-28 20:00] VITALS: BP 143/91
[2017-07-28] MEDS: MONTELUKAST SODIUM 10MG TABLET PO SCH (22:13)
[2017-07-28] MEDS: CARVEDILOL 3.125 MG TABLET PO SCH (22:14)
[2017-07-29] VITALS: BP 129/74
[2017-07-29 04:00] VITALS: BP 126/73
[2017-07-29] MEDS: OMEPRAZOLE 20MG CAPSULE EXTENDED RELEASE PO SCH ×2 (06:55→06:56)
[2017-07-29] MEDS: FERROUS SULFATE 325MG TABLET PO SCH ×3 (06:55→17:05)
[2017-07-29] MEDS: DILTIAZEM HCL 60MG TABLET PO SCH ×2 (06:58→07:12)
[2017-07-29] MEDS: BLOOD SUGAR DIAGNOSTIC STRIP TEST SCH ×4 (07:09→21:29)
[2017-07-29 07:30] VITALS: BP 141/78
[2017-07-29] MEDS: INSULIN LISPRO 100 UNITS/ML SUBCUT SCH ×4 (07:50→21:00)
[2017-07-29 07:52] LABS: BASOPHILS % 1.3 % (0.0-2.0); HEMATOCRIT. 31.3 % (36.0-48.0); LYMPHOCYTES % 12.4 % (20.0-50.0); MEAN CORPUSCULAR HEMOGLOBIN 25.9 pg (28.0-32.0); MEAN CORPUSCULAR VOLUME 81.3 fL (81.0-99.0); MEAN PLATELET VOLUME 10.7 fl (7.4-10.4); MONOCYTES % 6.9 % (2.0-8.0); NEUTROPHILS % 76.4 % (40.0-76.0); PLATELET 183 x1000/uL (130-400); RED BLOOD CELL COUNT 3.85 mill/uL (4.2-5.4); RED CELL DISTRIBUTION WIDTH 19.1 % (11.6-14.6)
[2017-07-29] MEDS ORDERED: ENOXAPARIN 60MG/0.6ML SYR SUBCUT SCH (09:00)
[2017-07-29] MEDS: SPIRONOLACTONE 25MG TABLET PO SCH (09:25)
[2017-07-29] MEDS: LOSARTAN POTASSIUM 25 MG TABLET PO SCH (09:25)
[2017-07-29] MEDS: ALLOPURINOL 100 MG TABLET PO SCH (09:25)
[2017-07-29] MEDS: FUROSEMIDE 40MG/4ML VIAL IVP SCH ×2 (09:26→17:06)
[2017-07-29] MEDS: AMLODIPINE 5MG TABLET PO SCH (09:26)
[2017-07-29] MEDS: DOCUSATE SODIUM 100MG CAPSULE PO SCH ×2 (09:26→17:05)
[2017-07-29] MEDS: MULTIVITAMINS,THER W-MINERALS TABLET PO SCH (09:26)
[2017-07-29] MEDS: CARVEDILOL 3.125 MG TABLET PO SCH ×4 (09:30→23:33)
[2017-07-29] MEDS: HYDROCODONE/ACETAMINOPHEN 5/325MG TABLET PO PRN ×2 (10:09→21:45)
[2017-07-29 11:33] VITALS: BP 136/78
[2017-07-29] MEDS ORDERED: POTASSIUM CHLORIDE 20MEQ TABLET SR PO NR (13:45)
[2017-07-29] MEDS: IPRATROPIUM/ALBUTEROL 0.5-3(2.5)MG/3ML NEB INH PRN ×2 (15:47→20:46)
[2017-07-29 16:01] VITALS: BP 148/83
[2017-07-29] MEDS: MAGNESIUM HYDROXIDE 400MG/5ML 30ML UDC PO PRN ×2 (18:19→21:17)
[2017-07-29 20:00] VITALS: BP 149/92
[2017-07-29] MEDS: MONTELUKAST SODIUM 10MG TABLET PO SCH (21:42)
[2017-07-29] MEDS: ENOXAPARIN 60MG/0.6ML SYR SUBCUT SCH (21:46)
[2017-07-29] MEDS: MICONAZOLE NITRATE 2% OINT 71GM TOP SCH (21:48)
[2017-07-30] VITALS: BP 146/89
[2017-07-30] MEDS: IPRATROPIUM/ALBUTEROL 0.5-3(2.5)MG/3ML NEB INH PRN ×3 (00:33→08:59)
[2017-07-30] MEDS: FERROUS SULFATE 325MG TABLET PO SCH ×2 (06:59→13:25)
[2017-07-30] MEDS: DILTIAZEM HCL 60MG TABLET PO SCH ×3 (06:59→13:27)
[2017-07-30] MEDS: OMEPRAZOLE 20MG CAPSULE EXTENDED RELEASE PO SCH ×2 (06:59→07:07)
[2017-07-30] MEDS: BLOOD SUGAR DIAGNOSTIC STRIP TEST SCH ×2 (07:02→12:23)
[2017-07-30] MEDS: INSULIN LISPRO 100 UNITS/ML SUBCUT SCH ×2 (07:50→12:23)
[2017-07-30 08:20] VITALS: BP 128/68
[2017-07-30 08:32] LABS: BASOPHILS % 1.3 % (0.0-2.0); EOSINOPHILS % 2.6 % (0.0-5.0); HEMATOCRIT. 32.3 % (36.0-48.0); HEMOGLOBIN. 10.4 g/dL (12.0-16.0); LYMPHOCYTES % 17.7 % (20.0-50.0); MEAN CORPUSCULAR VOLUME 81.1 fL (81.0-99.0); MEAN PLATELET VOLUME 10.7 fl (7.4-10.4); MONOCYTES % 6.9 % (2.0-8.0); NEUTROPHILS % 71.5 % (40.0-76.0); PLATELET 203 x1000/uL (130-400); RED BLOOD CELL COUNT 3.99 mill/uL (4.2-5.4); RED CELL DISTRIBUTION WIDTH 18.9 % (11.6-14.6)
[2017-07-30] MEDS: DOCUSATE SODIUM 100MG CAPSULE PO SCH (08:36)
[2017-07-30] MEDS: SPIRONOLACTONE 25MG TABLET PO SCH (08:36)
[2017-07-30] MEDS: LOSARTAN POTASSIUM 25 MG TABLET PO SCH (08:36)
[2017-07-30] MEDS: ALLOPURINOL 100 MG TABLET PO SCH (08:36)
[2017-07-30] MEDS: AMLODIPINE 5MG TABLET PO SCH (08:36)
[2017-07-30] MEDS: FUROSEMIDE 40MG/4ML VIAL IVP SCH (08:36)
[2017-07-30] MEDS: ENOXAPARIN 60MG/0.6ML SYR SUBCUT SCH (08:37)
[2017-07-30] MEDS: MULTIVITAMINS,THER W-MINERALS TABLET PO SCH (08:37)
[2017-07-30] MEDS: MICONAZOLE NITRATE 2% OINT 71GM TOP SCH (08:38)
[2017-07-30] MEDS ORDERED: POTASSIUM CHLORIDE 20MEQ TABLET SR PO SCH (11:00)
[2017-07-30 11:41] VITALS: BP 114/62
[2017-07-30 12:43] VITALS: BP 128/77
== END 2017-07-30 15:30 | disposition home or self-care (01) | DRG 291 ==
LOC: ER 12:33 → 6WST 15:43 → EDBEDREQ 15:45 → ENRESERV 16:02
PROVIDERS: ADMIT Family Medicine Adult Medicine; ATTEND Family Medicine Adult Medicine
DX: I13.0 Hypertensive heart and chronic kidney disease with heart failure and stage 1 through stage 4 chronic kidney disease, or unspecified chronic kidney disease (principal); I50.23 Acute on chronic systolic (congestive) heart failure; R64 Cachexia; E11.22 Type 2 diabetes mellitus with diabetic chronic kidney disease; I48.1 Persistent atrial fibrillation; I27.2 Other secondary pulmonary hypertension; I24.9 Acute ischemic heart disease, unspecified; I25.5 Ischemic cardiomyopathy; Z96.659 Presence of unspecified artificial knee joint; J44.9 Chronic obstructive pulmonary disease, unspecified; D64.9 Anemia, unspecified; I25.10 Atherosclerotic heart disease of native coronary artery without angina pectoris; I34.0 Nonrheumatic mitral (valve) insufficiency; I37.1 Nonrheumatic pulmonary valve insufficiency; M10.9 Gout, unspecified; N18.9 Chronic kidney disease, unspecified; Z79.82 Long term (current) use of aspirin; Z90.49 Acquired absence of other specified parts of digestive tract; Z79.899 Other long term (current) drug therapy; Z79.01 Long term (current) use of anticoagulants; Z68.22 Body mass index [BMI] 22.0-22.9, adult
CPT/HCPCS: 36415; 71010; 80048; 80053; 80162; 82962; 83735; 83880; 84484; 85025; 85610; 85730; 93005; 94640; 94664; 96374; 96375; 99285; C1893; J1650; J1940; J2270; J2405; J7620

== ENCOUNTER 2017-08-16 07:58 | Inpatient (IN) | payer MEDICARE, MEDICAID ==
[~2017-08-16] VITALS: Ht 162.6 cm; Wt 55.8 kg
[2017-08-16] MEDS ORDERED: ASPIRIN 81MG TABLET PO STA (09:26)
[2017-08-16 10:09] LABS: BASOPHILS % 0.7 % (0.0-2.0); EOSINOPHILS % 0.2 % (0.0-5.0); HEMATOCRIT. 36.4 % (36.0-48.0); HEMOGLOBIN. 11.5 g/dL (12.0-16.0); LYMPHOCYTES % 11.6 % (20.0-50.0); MEAN CORPUSCULAR HEMOGLOBIN 25.7 pg (28.0-32.0); MEAN CORPUSCULAR VOLUME 81.1 fL (81.0-99.0); MEAN PLATELET VOLUME 10.8 fl (7.4-10.4); MONOCYTES % 4.8 % (2.0-8.0); NEUTROPHILS % 82.7 % (40.0-76.0); PLATELET 144 x1000/uL (130-400); RED BLOOD CELL COUNT 4.49 mill/uL (4.2-5.4); RED CELL DISTRIBUTION WIDTH 19.3 % (11.6-14.6)
[2017-08-16 10:20] LABS: D-DIMER 1.17 mg/L FEU (<0.50); INR 1.1; PARTIAL THROMBOPLASTIN TIME 24.6 sec (23.4-31.0); PROTHROMBIN TIME 11.2 sec (9.4-11.6)
[2017-08-16 10:26] LABS: CARBON DIOXIDE 27 mEq/L (21-32); CHLORIDE 105 mEq/L (98-107); TROPONIN I 0.05 ng/mL (0.00-0.04)
[2017-08-16] MEDS ORDERED: FUROSEMIDE 40MG/4ML VIAL IVP ONE (12:30)
[2017-08-16] MEDS ORDERED: ACETAMINOPHEN 325MG TABLET PO PRN (13:00)
[2017-08-16] MEDS ORDERED: DILTIAZEM HCL 5MG/ML 5ML VIAL IV PRN (13:00)
[2017-08-16] MEDS ORDERED: CLONIDINE 0.1MG TABLET PO PRN (16:00)
[2017-08-16 17:00] VITALS: BP 129/89
[2017-08-16 17:16] LABS: CLARITY URINE CLEAR (CLEAR); COLOR URINE YELLOW (YELLOW); GLUCOSE URINE NEGATIVE (NEGATIVE); KETONES URINE NEGATIVE (NEGATIVE); LEUKOCYTE ESTERASE URINE NEGATIVE (NEGATIVE); NITRITE URINE NEGATIVE (NEGATIVE); OCCULT BLOOD URINE NEGATIVE (NEGATIVE); PH URINE 6.5 (4.5-8.0); PROTEIN URINE TRACE (NEGATIVE); SPECIFIC GRAVITY URINE 1.012 (1.005-1.030); UROBILINOGEN URINE 0.2 E.U./dL (0.2-1.0)
[2017-08-16] MEDS: MONTELUKAST SODIUM 10MG TABLET PO SCH (17:28)
[2017-08-16] MEDS: DILTIAZEM HCL 60MG TABLET PO SCH (17:28)
[2017-08-16] MEDS: APIXABAN 2.5 MG TABLET PO SCH (17:28)
[2017-08-16] MEDS: FUROSEMIDE 40MG/4ML VIAL IVP SCH (17:29)
[2017-08-16] MEDS: FERROUS SULFATE 325MG TABLET PO SCH (17:29)
[2017-08-16 20:00] VITALS: BP 111/64
[2017-08-16] MEDS: CARVEDILOL 3.125 MG TABLET PO SCH (20:43)
[2017-08-17] VITALS (7 sets, daily range): BP systolic 105–143; BP diastolic 63–88
[2017-08-17] MEDS: DILTIAZEM HCL 60MG TABLET PO SCH ×5 (00:34→23:47)
[2017-08-17] MEDS: FUROSEMIDE 40MG/4ML VIAL IVP SCH ×2 (06:15→16:41)
[2017-08-17 08:04] LABS: TROPONIN I 0.06 ng/mL (0.00-0.04)
[2017-08-17 08:28] LABS: BASOPHILS % 0.6 % (0.0-2.0); EOSINOPHILS % 1.1 % (0.0-5.0); HEMATOCRIT. 30.8 % (36.0-48.0); HEMOGLOBIN. 9.8 g/dL (12.0-16.0); LYMPHOCYTES % 15.1 % (20.0-50.0); MEAN CORPUSCULAR HEMOGLOBIN 25.7 pg (28.0-32.0); MEAN CORPUSCULAR VOLUME 80.5 fL (81.0-99.0); MEAN PLATELET VOLUME 11.5 fl (7.4-10.4); MONOCYTES % 6.6 % (2.0-8.0); NEUTROPHILS % 76.6 % (40.0-76.0); PLATELET 131 x1000/uL (130-400); RED BLOOD CELL COUNT 3.82 mill/uL (4.2-5.4); RED CELL DISTRIBUTION WIDTH 18.8 % (11.6-14.6)
[2017-08-17] MEDS: ALLOPURINOL 100 MG TABLET PO SCH (08:32)
[2017-08-17] MEDS: CARVEDILOL 3.125 MG TABLET PO SCH ×2 (08:32→20:20)
[2017-08-17] MEDS: FERROUS SULFATE 325MG TABLET PO SCH ×3 (08:33→17:12)
[2017-08-17] MEDS: APIXABAN 2.5 MG TABLET PO SCH ×2 (08:33→17:12)
[2017-08-17] MEDS: LOSARTAN POTASSIUM 25 MG TABLET PO SCH (08:33)
[2017-08-17] MEDS ORDERED: MORPHINE SULFATE 4 MG/ML CPJ (NOT FOR IM USE) IV PRN (13:15)
[2017-08-17] MEDS: HYDROCODONE/ACETAMINOPHEN 5/325MG TABLET PO PRN ×2 (13:39→20:21)
[2017-08-17] MEDS: ISOSORBIDE MONONITRATE 30MG TABLET SR 24HR PO SCH (13:44)
[2017-08-17] MEDS ORDERED: TRAM50TA3 PO (14:15)
[2017-08-17] MEDS ORDERED: SPIR25TA4 PO (14:15)
[2017-08-17] MEDS ORDERED: DIGO125T82 PO (14:15)
[2017-08-17] MEDS ORDERED: AMLO5TAB88 PO (14:15)
[2017-08-17] MEDS ORDERED: NITR0.4T49 SL (14:15)
[2017-08-17] MEDS ORDERED: OMEP40CA34 PO (14:15)
[2017-08-17] MEDS ORDERED: CHOL400T31 PO (14:15)
[2017-08-17] MEDS ORDERED: LOSA50TA20 PO (14:15)
[2017-08-17] MEDS ORDERED: COLC0.6T66 PO (14:15)
[2017-08-17] MEDS ORDERED: MULT-1146 PO (14:15)
[2017-08-17] MEDS: MONTELUKAST SODIUM 10MG TABLET PO SCH (16:44)
[2017-08-17 17:18] LABS: HEMATOCRIT 30.9 % (36.0-48.0)
[2017-08-17] MEDS: COLCHICINE 0.6MG TABLET PO SCH (19:01)
[2017-08-18] VITALS (7 sets, daily range): BP systolic 98–128; BP diastolic 62–83
[2017-08-18] MEDS: DILTIAZEM HCL 60MG TABLET PO SCH ×3 (05:44→18:00)
[2017-08-18] MEDS: FUROSEMIDE 40MG/4ML VIAL IVP SCH ×2 (06:29→18:00)
[2017-08-18 07:00] LABS: BASOPHILS % 1.1 % (0.0-2.0); EOSINOPHILS % 1.8 % (0.0-5.0); HEMATOCRIT. 29.7 % (36.0-48.0); HEMOGLOBIN. 9.6 g/dL (12.0-16.0); LYMPHOCYTES % 23.9 % (20.0-50.0); MEAN CORPUSCULAR HEMOGLOBIN 25.9 pg (28.0-32.0); MEAN CORPUSCULAR VOLUME 80.1 fL (81.0-99.0); MEAN PLATELET VOLUME 11.4 fl (7.4-10.4); MONOCYTES % 7.9 % (2.0-8.0); NEUTROPHILS % 65.3 % (40.0-76.0); PLATELET 143 x1000/uL (130-400); RED CELL DISTRIBUTION WIDTH 18.9 % (11.6-14.6)
[2017-08-18] MEDS: POTASSIUM CHLORIDE 20MEQ TABLET SR PO SCH (08:52)
[2017-08-18] MEDS: CARVEDILOL 3.125 MG TABLET PO SCH ×3 (08:53→21:21)
[2017-08-18] MEDS: ALLOPURINOL 100 MG TABLET PO SCH (08:53)
[2017-08-18] MEDS: APIXABAN 2.5 MG TABLET PO SCH ×2 (08:53→18:00)
[2017-08-18] MEDS: FERROUS SULFATE 325MG TABLET PO SCH ×3 (08:53→18:00)
[2017-08-18] MEDS: LOSARTAN POTASSIUM 25 MG TABLET PO SCH (08:53)
[2017-08-18] MEDS: ISOSORBIDE MONONITRATE 30MG TABLET SR 24HR PO SCH ×2 (08:54→09:00)
[2017-08-18] MEDS: COLCHICINE 0.6MG TABLET PO SCH (08:54)
[2017-08-18] MEDS ORDERED: DOCUSATE SODIUM 100MG CAPSULE PO SCH (11:30)
[2017-08-18] MEDS ORDERED: LACTULOSE 20G/30ML UDC PO SCH (11:30)
[2017-08-18] MEDS: MONTELUKAST SODIUM 10MG TABLET PO SCH (18:00)
[2017-08-19] MEDS: DILTIAZEM HCL 60MG TABLET PO SCH ×3 (01:19→12:40)
[2017-08-19 04:00] VITALS: BP 142/82
[2017-08-19] MEDS: FUROSEMIDE 40MG/4ML VIAL IVP SCH (06:51)
[2017-08-19 07:12] LABS: BASOPHILS % 1.1 % (0.0-2.0); EOSINOPHILS % 1.9 % (0.0-5.0); HEMATOCRIT. 33.5 % (36.0-48.0); HEMOGLOBIN. 10.7 g/dL (12.0-16.0); LYMPHOCYTES % 26.4 % (20.0-50.0); MEAN CORPUSCULAR HEMOGLOBIN 25.7 pg (28.0-32.0); MEAN CORPUSCULAR VOLUME 80.4 fL (81.0-99.0); MEAN PLATELET VOLUME 10.9 fl (7.4-10.4); MONOCYTES % 8.9 % (2.0-8.0); NEUTROPHILS % 61.7 % (40.0-76.0); PLATELET 154 x1000/uL (130-400); RED BLOOD CELL COUNT 4.16 mill/uL (4.2-5.4)
[2017-08-19 08:16] VITALS: BP 114/80
[2017-08-19] MEDS: POTASSIUM CHLORIDE 20MEQ TABLET SR PO SCH (08:47)
[2017-08-19] MEDS: COLCHICINE 0.6MG TABLET PO SCH (08:48)
[2017-08-19] MEDS: ISOSORBIDE MONONITRATE 30MG TABLET SR 24HR PO SCH (08:48)
[2017-08-19] MEDS: ALLOPURINOL 100 MG TABLET PO SCH (08:48)
[2017-08-19] MEDS: CARVEDILOL 3.125 MG TABLET PO SCH (08:48)
[2017-08-19] MEDS: LOSARTAN POTASSIUM 25 MG TABLET PO SCH (08:48)
[2017-08-19] MEDS: APIXABAN 2.5 MG TABLET PO SCH (08:48)
[2017-08-19] MEDS: FERROUS SULFATE 325MG TABLET PO SCH ×2 (08:48→13:10)
[2017-08-19 12:49] VITALS: BP 120/83
== END 2017-08-19 16:50 | disposition home or self-care (01) | DRG 291 ==
LOC: ER 08:18 → 7WST 13:05 → EDBEDREQ 13:12 → ENRESERV 13:42 → CANBEDREQ 16:33 → 7WST 08-19 12:33
PROVIDERS: ADMIT Specialist; ATTEND Specialist
DX: I13.0 Hypertensive heart and chronic kidney disease with heart failure and stage 1 through stage 4 chronic kidney disease, or unspecified chronic kidney disease (principal); I50.23 Acute on chronic systolic (congestive) heart failure; R64 Cachexia; E11.22 Type 2 diabetes mellitus with diabetic chronic kidney disease; I48.1 Persistent atrial fibrillation; J44.9 Chronic obstructive pulmonary disease, unspecified; I25.5 Ischemic cardiomyopathy; D64.9 Anemia, unspecified; I25.10 Atherosclerotic heart disease of native coronary artery without angina pectoris; I37.1 Nonrheumatic pulmonary valve insufficiency; M10.9 Gout, unspecified; N18.9 Chronic kidney disease, unspecified; Z96.659 Presence of unspecified artificial knee joint; R63.0 Anorexia; Z90.49 Acquired absence of other specified parts of digestive tract; Z68.20 Body mass index [BMI] 20.0-20.9, adult
CPT/HCPCS: 36415; 71010; 80048; 80053; 81001; 83605; 83735; 83880; 84484; 84550; 85014; 85018; 85025; 85379; 85610; 85730; 87040; 93005; 96374; 99285; J1940; J2270

== ENCOUNTER 2017-10-26 13:18 | Inpatient (IN) | payer MEDICARE, MEDICAID ==
[~2017-10-26] VITALS: Ht 160 cm; Wt 67.6 kg
[~2017-10-26 13:18] MED LIST changes: -AMLO5TAB88 PO; +CHOL400T31 PO; +COLC0.6T66 PO; +LOSA50TA20 PO; -SPIR25TA4 PO; +TRAM50TA3 PO
[2017-10-26] MEDS ORDERED: DILTIAZEM HCL 5MG/ML 5ML VIAL IV ONE (14:00)
[2017-10-26] MEDS ORDERED: NITROGLYCERIN 0.4MG TABLET SL SL PRN (14:00)
[2017-10-26] MEDS ORDERED: ASPIRIN 81MG TABLET PO ONE (14:00)
[2017-10-26] MEDS ORDERED: DILTIAZEM HCL 125 MG in DEXT 5% WATER 100 ML IV PRN (14:45)
[2017-10-26] MEDS ORDERED: ONDANSETRON HCL 4MG/2ML VIAL IV PRN (15:45)
[2017-10-26] MEDS ORDERED: IPRATROPIUM/ALBUTEROL 0.5-3(2.5)MG/3ML NEB INH PRN (15:45)
[2017-10-26] MEDS ORDERED: DOCUSATE SODIUM 100MG CAPSULE PO PRN (15:45)
[2017-10-26] MEDS ORDERED: ACETAMINOPHEN 325MG TABLET PO PRN (15:45)
[2017-10-26 16:07] LABS: CHLORIDE 107 mEq/L (98-107)
[2017-10-26 16:12] LABS: BASOPHILS % 0.6 % (0.0-2.0); HEMATOCRIT. 39.7 % (36.0-48.0); HEMOGLOBIN. 12.6 g/dL (12.0-16.0); LYMPHOCYTES % 7.5 % (20.0-50.0); MEAN CORPUSCULAR HEMOGLOBIN 26.4 pg (28.0-32.0); MEAN CORPUSCULAR VOLUME 83.4 fL (81.0-99.0); MONOCYTES % 6.4 % (2.0-8.0); NEUTROPHILS % 85.5 % (40.0-76.0); RED BLOOD CELL COUNT 4.76 mill/uL (4.2-5.4); RED CELL DISTRIBUTION WIDTH 24.5 % (11.6-14.6)
[2017-10-26 16:16] LABS: CARBON DIOXIDE 16 mEq/L (21-32); TROPONIN I 0.12 ng/mL (0.00-0.04)
[2017-10-26] MEDS: DILTIAZEM HCL 125 MG in DEXT 5% WATER 100 ML IV PRN (16:16)
[2017-10-26] MEDS ORDERED: DEXTROSE 50% WATER 50ML SYRINGE IV ONE (16:30)
[2017-10-26] MEDS ORDERED: SODIUM BICARBONATE 8.4% 1 MEQ/ML 50ML SYR IV ONE (16:30)
[2017-10-26] MEDS ORDERED: ALBUTEROL (0.5%) 2.5MG/0.5ML NEB HHN ONE (16:30)
[2017-10-26] MEDS ORDERED: INSULIN REGULAR (HUMULIN R) 300UNITS/3ML IV ONE (16:30)
[2017-10-26] MEDS ORDERED: CALCIUM GLUCONATE 1,000 MG in DEXT 5% WATER 100 ML IV ONE (16:30)
[2017-10-26 16:38] LABS: MEAN PLATELET VOLUME 11.5 fl (7.4-10.4); PLATELET 135 x1000/uL (130-400)
[2017-10-26] MEDS ORDERED: APIXABAN 2.5 MG TABLET PO SCH (17:00)
[2017-10-26] MEDS ORDERED: CALCIUM GLUCONATE 1,000 MG in DEXT 5% WATER 100 ML IV NR (18:00)
[2017-10-26] MEDS: HYDROCODONE/ACETAMINOPHEN 5/325MG TABLET PO PRN (18:06)
[2017-10-26 19:21] LABS: INR 1.6
[2017-10-26 19:27] LABS: AMMONIA < 25 uMol/L (<32)
[2017-10-26] MEDS ORDERED: ZOLPIDEM TARTRATE 5MG TABLET PO PRN (21:00)
[2017-10-26] MEDS ORDERED: SODIUM CHLORIDE 0.45% 1,000 ML IV ONE (22:30)
[2017-10-26] MEDS: CARVEDILOL 3.125 MG TABLET PO SCH (22:30)
[2017-10-26 23:00] VITALS: BP 101/75
[2017-10-27] VITALS (12 sets, daily range): BP systolic 101–117; BP diastolic 59–86
[2017-10-27] MEDS: DILTIAZEM HCL 125 MG in DEXT 5% WATER 100 ML IV PRN (03:58)
[2017-10-27] MEDS: OMEPRAZOLE 20MG CAPSULE EXTENDED RELEASE PO SCH ×2 (06:00→08:40)
[2017-10-27 07:24] LABS: CLARITY URINE CLOUDY (CLEAR); COLOR URINE YELLOW (YELLOW); KETONES URINE NEGATIVE (NEGATIVE); LEUKOCYTE ESTERASE URINE 1+ (NEGATIVE); NITRITE URINE NEGATIVE (NEGATIVE); OCCULT BLOOD URINE 1+ (NEGATIVE); PROTEIN URINE 1+ (NEGATIVE); SPECIFIC GRAVITY URINE 1.019 (1.005-1.030)
[2017-10-27 08:32] LABS: *AMPHETAMINES SCREEN URINE NEGATIVE (NEGATIVE); *BARBITURATES SCREEN URINE NEGATIVE (NEGATIVE); *BENZODIAZEPINES SCREEN URINE NEGATIVE (NEGATIVE); *COCAINE SCREEN URINE NEGATIVE (NEGATIVE); CANNABINOID URINE SCREEN NEGATIVE (NEGATIVE); METHADONE URINE SCREEN NEGATIVE (NEGATIVE); OPIATES URINE SCREEN NEGATIVE (NEGATIVE); PHENCYCLIDINE URINE SCREEN NEGATIVE (NEGATIVE)
[2017-10-27] MEDS: CHOLECALCIFEROL (VIT D3) 400 UNIT TABLET PO SCH (08:40)
[2017-10-27] MEDS: COLCHICINE 0.6MG TABLET PO SCH (08:40)
[2017-10-27] MEDS: DOCUSATE SODIUM 100MG CAPSULE PO SCH ×2 (08:40→17:00)
[2017-10-27] MEDS: FERROUS SULFATE 325MG TABLET PO SCH ×3 (08:41→18:16)
[2017-10-27] MEDS: GABAPENTIN 100MG CAPSULE PO SCH ×2 (08:41→18:16)
[2017-10-27] MEDS: CARVEDILOL 3.125 MG TABLET PO SCH ×2 (08:42→21:00)
[2017-10-27] MEDS ORDERED: MULTIVITAMINS,THER W-MINERALS TABLET PO SCH (09:00)
[2017-10-27] MEDS ORDERED: LOSARTAN POTASSIUM 50 MG TABLET PO SCH (09:00)
[2017-10-27] MEDS ORDERED: MEDICATION NOT ON FORMULARY EA (Multivitamin (Multi Vitamin Daily) 1 TAB) PO SCH (09:00)
[2017-10-27 09:15] LABS: BASOPHILS % 0.1 % (0.0-2.0); EOSINOPHILS % 0.1 % (0.0-5.0); HEMATOCRIT. 33.1 % (36.0-48.0); HEMOGLOBIN. 10.9 g/dL (12.0-16.0); LYMPHOCYTES % 7.1 % (20.0-50.0); MEAN CORPUSCULAR HEMOGLOBIN 26.8 pg (28.0-32.0); MEAN CORPUSCULAR VOLUME 81.6 fL (81.0-99.0); MEAN PLATELET VOLUME 10.7 fl (7.4-10.4); MONOCYTES % 5.9 % (2.0-8.0); NEUTROPHILS % 86.8 % (40.0-76.0); PLATELET 131 x1000/uL (130-400); RED BLOOD CELL COUNT 4.05 mill/uL (4.2-5.4); RED CELL DISTRIBUTION WIDTH 23.3 % (11.6-14.6)
[2017-10-27] MEDS: ALLOPURINOL 100 MG TABLET PO SCH (09:20)
[2017-10-27 09:43] LABS: TROPONIN I 0.12 ng/mL (0.00-0.04)
[2017-10-27] MEDS ORDERED: SODIUM POLYSTYRENE SULFONATE 15 G/60 ML BOT PO NR (10:15)
[2017-10-27] MEDS: DILTIAZEM HCL 60MG TABLET PO SCH ×3 (10:30→21:33)
[2017-10-27 10:47] LABS: INR 1.4
[2017-10-27] MEDS: HYDROCODONE/ACETAMINOPHEN 5/325MG TABLET PO PRN (18:36)
[2017-10-27] MEDS: MONTELUKAST SODIUM 10MG TABLET PO SCH (21:26)
[2017-10-27] MEDS: TRAMADOL 50MG TABLET PO PRN (21:33)
[2017-10-28] VITALS (12 sets, daily range): BP systolic 89–127; BP diastolic 52–82
[2017-10-28] MEDS: IPRATROPIUM/ALBUTEROL 0.5-3(2.5)MG/3ML NEB INH SCH (01:31)
[2017-10-28] MEDS: DILTIAZEM HCL 60MG TABLET PO SCH ×3 (05:33→21:02)
[2017-10-28] MEDS: TRAMADOL 50MG TABLET PO PRN ×3 (05:34→22:02)
[2017-10-28 07:33] LABS: BASOPHILS % 0.1 % (0.0-2.0); EOSINOPHILS % 0.4 % (0.0-5.0); HEMATOCRIT. 29.6 % (36.0-48.0); HEMOGLOBIN. 9.8 g/dL (12.0-16.0); LYMPHOCYTES % 9.8 % (20.0-50.0); MEAN CORPUSCULAR HEMOGLOBIN 27.1 pg (28.0-32.0); MEAN PLATELET VOLUME 10.7 fl (7.4-10.4); MONOCYTES % 8.1 % (2.0-8.0); NEUTROPHILS % 81.6 % (40.0-76.0); PLATELET 114 x1000/uL (130-400); RED CELL DISTRIBUTION WIDTH 23.2 % (11.6-14.6)
[2017-10-28 08:40] LABS: PHOSPHORUS 6.3 mg/dL (2.5-4.9)
[2017-10-28] MEDS ORDERED: FUROSEMIDE 40MG/4ML VIAL IV SCH (09:00)
[2017-10-28] MEDS: FERROUS SULFATE 325MG TABLET PO SCH ×3 (10:14→17:01)
[2017-10-28] MEDS: GABAPENTIN 100MG CAPSULE PO SCH ×2 (10:15→17:01)
[2017-10-28] MEDS: OMEPRAZOLE 20MG CAPSULE EXTENDED RELEASE PO SCH (10:16)
[2017-10-28] MEDS: CHOLECALCIFEROL (VIT D3) 400 UNIT TABLET PO SCH (10:16)
[2017-10-28] MEDS: CARVEDILOL 3.125 MG TABLET PO SCH ×2 (10:17→21:00)
[2017-10-28] MEDS: DOCUSATE SODIUM 100MG CAPSULE PO SCH ×2 (10:17→17:01)
[2017-10-28] MEDS: ALLOPURINOL 100 MG TABLET PO SCH (10:17)
[2017-10-28] MEDS: COLCHICINE 0.6MG TABLET PO SCH (10:18)
[2017-10-28] MEDS: SODIUM CHLORIDE 0.45% 1,000 ML IV SCH (13:26)
[2017-10-28 14:17] LABS: PLATELET ESTIMATE SLIGHTLY DECREASED
[2017-10-28] MEDS: MONTELUKAST SODIUM 10MG TABLET PO SCH (21:08)
[2017-10-29] VITALS (12 sets, daily range): BP systolic 88–133; BP diastolic 58–83
[2017-10-29] MEDS: IPRATROPIUM/ALBUTEROL 0.5-3(2.5)MG/3ML NEB INH SCH ×4 (01:09→21:08)
[2017-10-29] MEDS: DILTIAZEM HCL 60MG TABLET PO SCH ×3 (05:39→18:21)
[2017-10-29] MEDS: DILTIAZEM HCL 5MG/ML 5ML VIAL IV PRN (05:40)
[2017-10-29 06:20] LABS: BASOPHILS % 0.3 % (0.0-2.0); EOSINOPHILS % 0.8 % (0.0-5.0); HEMATOCRIT. 32.6 % (36.0-48.0); HEMOGLOBIN. 10.4 g/dL (12.0-16.0); LYMPHOCYTES % 10.1 % (20.0-50.0); MEAN CORPUSCULAR HEMOGLOBIN 26.7 pg (28.0-32.0); MEAN CORPUSCULAR VOLUME 83.4 fL (81.0-99.0); MEAN PLATELET VOLUME 10.7 fl (7.4-10.4); MONOCYTES % 8.3 % (2.0-8.0); NEUTROPHILS % 80.5 % (40.0-76.0); PLATELET 117 x1000/uL (130-400); RED BLOOD CELL COUNT 3.91 mill/uL (4.2-5.4); RED CELL DISTRIBUTION WIDTH 23.5 % (11.6-14.6)
[2017-10-29] MEDS: SODIUM CHLORIDE 0.45% 1,000 ML IV SCH (08:45)
[2017-10-29] MEDS: HYDROCODONE/ACETAMINOPHEN 5/325MG TABLET PO PRN (09:04)
[2017-10-29] MEDS: CHOLECALCIFEROL (VIT D3) 400 UNIT TABLET PO SCH (09:05)
[2017-10-29] MEDS: COLCHICINE 0.6MG TABLET PO SCH (09:05)
[2017-10-29] MEDS: DOCUSATE SODIUM 100MG CAPSULE PO SCH ×2 (09:05→18:21)
[2017-10-29] MEDS: FERROUS SULFATE 325MG TABLET PO SCH ×3 (09:05→18:21)
[2017-10-29] MEDS: ALLOPURINOL 100 MG TABLET PO SCH (09:05)
[2017-10-29] MEDS: CARVEDILOL 3.125 MG TABLET PO SCH ×2 (09:05→20:54)
[2017-10-29] MEDS: GABAPENTIN 100MG CAPSULE PO SCH ×2 (09:06→18:21)
[2017-10-29] MEDS ORDERED: POTASSIUM CHLORIDE 20MEQ TABLET SR PO NR (11:15)
[2017-10-29] MEDS: MONTELUKAST SODIUM 10MG TABLET PO SCH (20:55)
[2017-10-30] VITALS (12 sets, daily range): BP systolic 104–125; BP diastolic 46–77
[2017-10-30] MEDS: DILTIAZEM HCL 60MG TABLET PO SCH ×4 (00:55→17:32)
[2017-10-30] MEDS: IPRATROPIUM/ALBUTEROL 0.5-3(2.5)MG/3ML NEB INH SCH ×4 (01:31→20:12)
[2017-10-30] MEDS: SODIUM CHLORIDE 0.45% 1,000 ML IV SCH (04:45)
[2017-10-30 06:18] LABS: BASOPHILS % 0.6 % (0.0-2.0); EOSINOPHILS % 1.3 % (0.0-5.0); HEMATOCRIT. 37.5 % (36.0-48.0); HEMOGLOBIN. 11.6 g/dL (12.0-16.0); LYMPHOCYTES % 16.3 % (20.0-50.0); MEAN CORPUSCULAR HEMOGLOBIN 25.6 pg (28.0-32.0); MEAN PLATELET VOLUME 11.3 fl (7.4-10.4); MONOCYTES % 6.5 % (2.0-8.0); NEUTROPHILS % 75.3 % (40.0-76.0); RED BLOOD CELL COUNT 4.52 mill/uL (4.2-5.4); RED CELL DISTRIBUTION WIDTH 23.5 % (11.6-14.6)
[2017-10-30 06:22] LABS: PLATELET 106 x1000/uL (130-400)
[2017-10-30] MEDS: OMEPRAZOLE 20MG CAPSULE EXTENDED RELEASE PO SCH (06:22)
[2017-10-30] MEDS: COLCHICINE 0.6MG TABLET PO SCH (08:38)
[2017-10-30] MEDS: GABAPENTIN 100MG CAPSULE PO SCH ×2 (08:38→16:36)
[2017-10-30] MEDS: DOCUSATE SODIUM 100MG CAPSULE PO SCH ×2 (08:39→17:32)
[2017-10-30] MEDS: CHOLECALCIFEROL (VIT D3) 400 UNIT TABLET PO SCH (08:39)
[2017-10-30] MEDS: FERROUS SULFATE 325MG TABLET PO SCH ×3 (08:39→16:36)
[2017-10-30] MEDS: CARVEDILOL 3.125 MG TABLET PO SCH ×2 (08:39→20:20)
[2017-10-30] MEDS: ALLOPURINOL 100 MG TABLET PO SCH (08:42)
[2017-10-30] MEDS: MONTELUKAST SODIUM 10MG TABLET PO SCH (20:19)
[2017-10-30] MEDS: HYDROCODONE/ACETAMINOPHEN 5/325MG TABLET PO PRN (20:21)
[2017-10-31] VITALS (12 sets, daily range): BP systolic 95–112; BP diastolic 56–70
[2017-10-31] MEDS: DILTIAZEM HCL 60MG TABLET PO SCH ×4 (00:15→18:34)
[2017-10-31] MEDS: SODIUM CHLORIDE 0.45% 1,000 ML IV SCH (01:30)
[2017-10-31] MEDS: IPRATROPIUM/ALBUTEROL 0.5-3(2.5)MG/3ML NEB INH SCH ×4 (01:45→20:10)
[2017-10-31 05:52] LABS: BASOPHILS % 0.4 % (0.0-2.0); EOSINOPHILS % 1.4 % (0.0-5.0); HEMATOCRIT. 32.9 % (36.0-48.0); HEMOGLOBIN. 10.6 g/dL (12.0-16.0); LYMPHOCYTES % 13.7 % (20.0-50.0); MEAN CORPUSCULAR HEMOGLOBIN 26.5 pg (28.0-32.0); MONOCYTES % 7.2 % (2.0-8.0); NEUTROPHILS % 77.3 % (40.0-76.0); PLATELET 139 x1000/uL (130-400); RED BLOOD CELL COUNT 4.01 mill/uL (4.2-5.4); RED CELL DISTRIBUTION WIDTH 23.3 % (11.6-14.6)
[2017-10-31] MEDS: OMEPRAZOLE 20MG CAPSULE EXTENDED RELEASE PO SCH (07:33)
[2017-10-31] MEDS: COLCHICINE 0.6MG TABLET PO SCH (08:05)
[2017-10-31] MEDS: ALLOPURINOL 100 MG TABLET PO SCH (08:05)
[2017-10-31] MEDS: CHOLECALCIFEROL (VIT D3) 400 UNIT TABLET PO SCH (08:05)
[2017-10-31] MEDS: DOCUSATE SODIUM 100MG CAPSULE PO SCH ×2 (08:05→16:18)
[2017-10-31] MEDS: GABAPENTIN 100MG CAPSULE PO SCH ×2 (08:05→16:18)
[2017-10-31] MEDS: FERROUS SULFATE 325MG TABLET PO SCH ×3 (08:05→16:18)
[2017-10-31] MEDS: CARVEDILOL 3.125 MG TABLET PO SCH ×2 (08:05→20:32)
[2017-10-31] MEDS: TRAMADOL 50MG TABLET PO PRN (16:19)
[2017-10-31] MEDS: MONTELUKAST SODIUM 10MG TABLET PO SCH (20:34)
[2017-11-01] VITALS (12 sets, daily range): BP systolic 96–124; BP diastolic 58–75
[2017-11-01] MEDS: IPRATROPIUM/ALBUTEROL 0.5-3(2.5)MG/3ML NEB INH SCH ×4 (00:29→21:30)
[2017-11-01] MEDS: DILTIAZEM HCL 60MG TABLET PO SCH ×3 (01:00→12:26)
[2017-11-01] MEDS ORDERED: ETHYL CHLORIDE CAN TOP NR (01:15)
[2017-11-01] MEDS ORDERED: LIDOCAINE HCL/PF 2% 20 MG/ML 10ML VIAL IJ NR (01:15)
[2017-11-01] MEDS ORDERED: DEXAMETHASONE 4MG/ML 1ML VIAL IV ONE (01:15)
[2017-11-01] MEDS ORDERED: TRIAMCINOLONE ACETONIDE 40MG/ML 1ML VIAL IM NR (01:15)
[2017-11-01] MEDS ORDERED: DEXAMETHASONE 4MG/ML 1ML VIAL IV NR (01:30)
[2017-11-01] MEDS ORDERED: BUPIVACAINE HCL/PF 0.5% (5MG/ML) 30ML INJ NR (02:30)
[2017-11-01 07:44] LABS: BASOPHILS % 0.4 % (0.0-2.0); EOSINOPHILS % 2.1 % (0.0-5.0); HEMATOCRIT. 32.4 % (36.0-48.0); HEMOGLOBIN. 10.2 g/dL (12.0-16.0); LYMPHOCYTES % 19.3 % (20.0-50.0); MEAN CORPUSCULAR HEMOGLOBIN 25.7 pg (28.0-32.0); MEAN CORPUSCULAR VOLUME 82.1 fL (81.0-99.0); MEAN PLATELET VOLUME 10.1 fl (7.4-10.4); MONOCYTES % 6.8 % (2.0-8.0); NEUTROPHILS % 71.4 % (40.0-76.0); PLATELET 171 x1000/uL (130-400); RED BLOOD CELL COUNT 3.95 mill/uL (4.2-5.4); RED CELL DISTRIBUTION WIDTH 23.3 % (11.6-14.6)
[2017-11-01] MEDS: ALLOPURINOL 100 MG TABLET PO SCH (08:30)
[2017-11-01] MEDS: GABAPENTIN 100MG CAPSULE PO SCH ×2 (08:30→17:11)
[2017-11-01] MEDS: FERROUS SULFATE 325MG TABLET PO SCH ×3 (08:30→17:08)
[2017-11-01] MEDS: OMEPRAZOLE 20MG CAPSULE EXTENDED RELEASE PO SCH (08:30)
[2017-11-01] MEDS: COLCHICINE 0.6MG TABLET PO SCH (08:30)
[2017-11-01] MEDS: DOCUSATE SODIUM 100MG CAPSULE PO SCH ×2 (08:31→17:08)
[2017-11-01] MEDS: CARVEDILOL 3.125 MG TABLET PO SCH ×2 (08:31→21:13)
[2017-11-01] MEDS: CHOLECALCIFEROL (VIT D3) 400 UNIT TABLET PO SCH (08:31)
[2017-11-01] MEDS ORDERED: TRAMADOL 50MG TABLET PO PRN (12:45)
[2017-11-01] MEDS ORDERED: COLCHICINE 0.6MG TABLET PO SCH (14:22)
[2017-11-01] MEDS: LEVOFLOXACIN 250MG PREMIX 50 ML IV SCH (16:00)
[2017-11-01] MEDS: APIXABAN 2.5 MG TABLET PO SCH (17:08)
[2017-11-01] MEDS: DILTIAZEM HCL 90MG TABLET PO SCH (17:09)
[2017-11-01] MEDS: DILTIAZEM HCL 5MG/ML 5ML VIAL IV PRN (21:13)
[2017-11-01] MEDS: MONTELUKAST SODIUM 10MG TABLET PO SCH (21:13)
[2017-11-02] VITALS (13 sets, daily range): BP systolic 96–135; BP diastolic 57–99
[2017-11-02] MEDS: DILTIAZEM HCL 90MG TABLET PO SCH ×4 (00:10→17:45)
[2017-11-02] MEDS: DILTIAZEM HCL 5MG/ML 5ML VIAL IV PRN (02:13)
[2017-11-02] MEDS: IPRATROPIUM/ALBUTEROL 0.5-3(2.5)MG/3ML NEB INH SCH ×4 (02:46→20:34)
[2017-11-02] MEDS: OMEPRAZOLE 20MG CAPSULE EXTENDED RELEASE PO SCH ×2 (06:44→08:46)
[2017-11-02 07:05] LABS: HEMATOCRIT. 33.5 % (36.0-48.0); HEMOGLOBIN. 10.8 g/dL (12.0-16.0); MEAN CORPUSCULAR HEMOGLOBIN 25.7 pg (28.0-32.0); MEAN CORPUSCULAR VOLUME 80.2 fL (81.0-99.0); MEAN PLATELET VOLUME 10.3 fl (7.4-10.4); PLATELET 214 x1000/uL (130-400); RED BLOOD CELL COUNT 4.18 mill/uL (4.2-5.4)
[2017-11-02] MEDS: APIXABAN 2.5 MG TABLET PO SCH ×2 (08:46→17:45)
[2017-11-02] MEDS: CHOLECALCIFEROL (VIT D3) 400 UNIT TABLET PO SCH (08:46)
[2017-11-02] MEDS: FERROUS SULFATE 325MG TABLET PO SCH ×3 (08:46→17:45)
[2017-11-02] MEDS: DOCUSATE SODIUM 100MG CAPSULE PO SCH ×2 (08:47→17:45)
[2017-11-02] MEDS: ALLOPURINOL 100 MG TABLET PO SCH (08:47)
[2017-11-02] MEDS: CARVEDILOL 3.125 MG TABLET PO SCH ×2 (08:47→21:09)
[2017-11-02] MEDS: GABAPENTIN 100MG CAPSULE PO SCH ×2 (08:47→17:45)
[2017-11-02] MEDS: LEVOFLOXACIN 250MG PREMIX 50 ML IV SCH (14:17)
[2017-11-02 15:10] LABS: PLATELET ESTIMATE NORMAL
[2017-11-02] MEDS ORDERED: DEXTROSE 50% WATER 50ML SYRINGE IV PRN (19:30)
[2017-11-02] MEDS: PREDNISONE 20MG TABLET PO SCH (21:09)
[2017-11-02] MEDS: MONTELUKAST SODIUM 10MG TABLET PO SCH (21:09)
[2017-11-02] MEDS: INSULIN LISPRO 100 UNITS/ML SUBCUT SCH (21:10)
[2017-11-02] MEDS: BLOOD SUGAR DIAGNOSTIC STRIP TEST SCH (21:10)
[2017-11-03] VITALS (15 sets, daily range): BP systolic 93–122; BP diastolic 58–86
[2017-11-03] MEDS: DILTIAZEM HCL 90MG TABLET PO SCH ×5 (00:05→23:12)
[2017-11-03] MEDS: IPRATROPIUM/ALBUTEROL 0.5-3(2.5)MG/3ML NEB INH SCH ×4 (01:53→21:33)
[2017-11-03 06:38] LABS: HEMATOCRIT. 33.7 % (36.0-48.0); MEAN CORPUSCULAR HEMOGLOBIN 26.9 pg (28.0-32.0); MEAN CORPUSCULAR VOLUME 82.1 fL (81.0-99.0); MEAN PLATELET VOLUME 10.1 fl (7.4-10.4); PLATELET 211 x1000/uL (130-400); RED CELL DISTRIBUTION WIDTH 24.1 % (11.6-14.6)
[2017-11-03] MEDS: BLOOD SUGAR DIAGNOSTIC STRIP TEST SCH ×4 (07:58→20:54)
[2017-11-03] MEDS: INSULIN LISPRO 100 UNITS/ML SUBCUT SCH ×4 (08:00→20:55)
[2017-11-03] MEDS: APIXABAN 2.5 MG TABLET PO SCH ×2 (08:07→17:44)
[2017-11-03] MEDS: FERROUS SULFATE 325MG TABLET PO SCH ×3 (08:07→17:44)
[2017-11-03] MEDS: ALLOPURINOL 100 MG TABLET PO SCH (08:07)
[2017-11-03] MEDS: CHOLECALCIFEROL (VIT D3) 400 UNIT TABLET PO SCH (08:07)
[2017-11-03] MEDS: PREDNISONE 20MG TABLET PO SCH (08:07)
[2017-11-03] MEDS: GABAPENTIN 100MG CAPSULE PO SCH ×2 (08:07→17:44)
[2017-11-03] MEDS: DOCUSATE SODIUM 100MG CAPSULE PO SCH ×2 (08:08→17:58)
[2017-11-03] MEDS: CARVEDILOL 3.125 MG TABLET PO SCH ×2 (08:09→20:55)
[2017-11-03] MEDS ORDERED: SODIUM CHLORIDE 0.9% 1,000 ML IV ONE (09:30)
[2017-11-03] MEDS ORDERED: SODIUM POLYSTYRENE SULFONATE 15 G/60 ML BOT PO NR (09:30)
[2017-11-03 11:17] LABS: HEPATITIS B SURFACE ANTIGEN NEGATIVE
[2017-11-03 11:43] LABS: HEPATITIS B CORE AB IGM NEGATIVE
[2017-11-03 11:47] LABS: HEPATITIS A AB IGM NEGATIVE (NEGATIVE)
[2017-11-03] MEDS: LEVOFLOXACIN 250MG TABLET PO SCH (12:14)
[2017-11-03 14:43] LABS: PLATELET ESTIMATE NORMAL
[2017-11-03] MEDS: DILTIAZEM HCL 5MG/ML 5ML VIAL IV PRN (14:53)
[2017-11-03] MEDS: MONTELUKAST SODIUM 10MG TABLET PO SCH (20:55)
[2017-11-04] VITALS (8 sets, daily range): BP systolic 108–121; BP diastolic 56–80
[2017-11-04] MEDS: IPRATROPIUM/ALBUTEROL 0.5-3(2.5)MG/3ML NEB INH SCH ×3 (02:31→15:12)
[2017-11-04] MEDS: DILTIAZEM HCL 90MG TABLET PO SCH ×2 (05:42→13:14)
[2017-11-04 06:57] LABS: HEMATOCRIT. 32.3 % (36.0-48.0); HEMOGLOBIN. 10.6 g/dL (12.0-16.0); MEAN CORPUSCULAR HEMOGLOBIN 26.4 pg (28.0-32.0); MEAN CORPUSCULAR VOLUME 80.9 fL (81.0-99.0); MEAN PLATELET VOLUME 10.1 fl (7.4-10.4); PLATELET 195 x1000/uL (130-400); RED BLOOD CELL COUNT 3.99 mill/uL (4.2-5.4); RED CELL DISTRIBUTION WIDTH 23.5 % (11.6-14.6)
[2017-11-04] MEDS: INSULIN LISPRO 100 UNITS/ML SUBCUT SCH ×2 (08:00→13:00)
[2017-11-04] MEDS: BLOOD SUGAR DIAGNOSTIC STRIP TEST SCH ×2 (08:12→13:14)
[2017-11-04] MEDS: GABAPENTIN 100MG CAPSULE PO SCH (08:54)
[2017-11-04] MEDS: CHOLECALCIFEROL (VIT D3) 400 UNIT TABLET PO SCH (08:54)
[2017-11-04] MEDS: OMEPRAZOLE 20MG CAPSULE EXTENDED RELEASE PO SCH (08:55)
[2017-11-04] MEDS: DOCUSATE SODIUM 100MG CAPSULE PO SCH (08:55)
[2017-11-04] MEDS: PREDNISONE 20MG TABLET PO SCH (08:56)
[2017-11-04] MEDS: FERROUS SULFATE 325MG TABLET PO SCH ×2 (08:56→13:00)
[2017-11-04] MEDS: CARVEDILOL 3.125 MG TABLET PO SCH (08:56)
[2017-11-04] MEDS: APIXABAN 2.5 MG TABLET PO SCH (08:56)
[2017-11-04] MEDS: ALLOPURINOL 100 MG TABLET PO SCH (09:01)
[2017-11-04 10:25] LABS: PLATELET ESTIMATE NORMAL
[2017-11-04] MEDS: LEVOFLOXACIN 250MG TABLET PO SCH (13:13)
== END 2017-11-04 15:55 | disposition home or self-care (01) | DRG 291 ==
LOC: ER 13:18 → 5EST 14:34 → SUPCPDRO 14:44 → ENRESERV 19:40
PROVIDERS: ADMIT Family Medicine Adult Medicine; ATTEND Family Medicine Adult Medicine
DX: I13.0 Hypertensive heart and chronic kidney disease with heart failure and stage 1 through stage 4 chronic kidney disease, or unspecified chronic kidney disease (principal); I50.43 Acute on chronic combined systolic (congestive) and diastolic (congestive) heart failure; N17.9 Acute kidney failure, unspecified; E46 Unspecified protein-calorie malnutrition; D69.6 Thrombocytopenia, unspecified; E11.22 Type 2 diabetes mellitus with diabetic chronic kidney disease; E11.51 Type 2 diabetes mellitus with diabetic peripheral angiopathy without gangrene; E87.2 Acidosis; E83.39 Other disorders of phosphorus metabolism; I48.0 Paroxysmal atrial fibrillation; N39.0 Urinary tract infection, site not specified; I31.3 Pericardial effusion (noninflammatory); N13.30 Unspecified hydronephrosis; R18.8 Other ascites; E86.0 Dehydration; I25.5 Ischemic cardiomyopathy; R26.9 Unspecified abnormalities of gait and mobility; J44.9 Chronic obstructive pulmonary disease, unspecified; N18.9 Chronic kidney disease, unspecified; Z96.653 Presence of artificial knee joint, bilateral; D35.01 Benign neoplasm of right adrenal gland; D50.9 Iron deficiency anemia, unspecified; E78.00 Pure hypercholesterolemia, unspecified; E83.41 Hypermagnesemia; E87.5 Hyperkalemia; E87.6 Hypokalemia; F17.210 Nicotine dependence, cigarettes, uncomplicated; I08.3 Combined rheumatic disorders of mitral, aortic and tricuspid valves; I25.10 Atherosclerotic heart disease of native coronary artery without angina pectoris; I44.7 Left bundle-branch block, unspecified; M1A.9XX0 Chronic gout, unspecified, without tophus (tophi); Z79.01 Long term (current) use of anticoagulants; Z90.49 Acquired absence of other specified parts of digestive tract; Z79.899 Other long term (current) drug therapy; Z82.49 Family history of ischemic heart disease and other diseases of the circulatory system; Z91.81 History of falling; Z68.26 Body mass index [BMI] 26.0-26.9, adult
CPT/HCPCS: 36415; 71010; 73560; 76705; 76770; 80048; 80053; 80076; 80162; 80305; 81001; 82140; 82270; 82962; 83036; 83735; 83880; 84100; 84484; 84550; 85025; 85610; 86705; 86709; 86803; 87040; 87077; 87086; 87186; 87340; 93005; 93306; 93970; 94640; 94664; 96365; 96367; 96375; 97116; 97162; 97165; 97168; 99291; A6261; J0610; J1100; J1815; J1956; J3301; J3490; J7030; J7060; J7512; J7611; J7620; A4315

== ENCOUNTER 2017-11-26 11:35 | Inpatient (IN) | payer MEDICARE, MEDICAID ==
[~2017-11-26] VITALS: Ht 162.6 cm; Wt 64.9 kg
[~2017-11-26 11:35] MED LIST changes: +ACLI400A2 IH; +DEXL60CA3 PO; +PRED2.5T4 PO; +SPIR50TA5 PO
[2017-11-26] MEDS ORDERED: NITROGLYCERIN OINT 1GM/INCH UDPKT TD ONE (13:30)
[2017-11-26] MEDS ORDERED: DILTIAZEM HCL 5MG/ML 5ML VIAL IV PRN ×2 (13:30→14:00)
[2017-11-26] MEDS ORDERED: ASPIRIN 81MG TABLET PO ONE (13:30)
[2017-11-26 13:46] LABS: BG BASE EXCESS -6.1 mmol/L (-2.0-2.0); BG CARBOXYHEMOGLOBIN 0.3 % (0.5-1.5); BG DEOXYHEMOGLOBIN 2.1 % (0.0-5.0); BG FRACTION INSPIRED OXYGEN 28; BG HCO3 ACT 15.9 mmol/L (22.0-26.0); BG METHEMOGLOBIN 0.2 % (0.0-1.5); BG OXYGEN SATURATION 97.9 % (92.0-98.5); BG OXYHEMOGLOBIN 97.4 % (94.0-97.0); BG PCO2 21.8 mmHg (35.0-45.0); BG PH 7.482 (7.350-7.450); BG PO2 110.6 mmHg (75.0-100.0); BG SAMPLE SITE RIGHT BRACHIAL; BG VENT MODE NASAL CANNULA
[2017-11-26 14:16] LABS: BASOPHILS % 0.4 % (0.0-2.0); HEMATOCRIT. 28.2 % (36.0-48.0); HEMOGLOBIN. 9.1 g/dL (12.0-16.0); LYMPHOCYTES % 12.7 % (20.0-50.0); MEAN CORPUSCULAR HEMOGLOBIN 26.1 pg (28.0-32.0); MEAN CORPUSCULAR VOLUME 80.8 fL (81.0-99.0); MONOCYTES % 4.9 % (2.0-8.0); PLATELET 117 x1000/uL (130-400); RED BLOOD CELL COUNT 3.49 mill/uL (4.2-5.4); RED CELL DISTRIBUTION WIDTH 23.3 % (11.6-14.6)
[2017-11-26 14:21] LABS: INR 1.3; PROTHROMBIN TIME 13.1 sec (9.4-11.6)
[2017-11-26 14:30] LABS: PLATELET ESTIMATE DECREASED
[2017-11-26 14:39] LABS: CHLORIDE 110 mEq/L (98-107); ETHANOL BLOOD < 10 mg/dL
[2017-11-26] MEDS ORDERED: FUROSEMIDE 40MG/4ML VIAL IVP ONE (14:49)
[2017-11-26] MEDS ORDERED: DILTIAZEM HCL 60MG TABLET PO ONE (15:00)
[2017-11-26] MEDS ORDERED: LORAZEPAM 0.5MG TABLET PO PRN (18:30)
[2017-11-26] MEDS ORDERED: CLONIDINE 0.1MG TABLET PO PRN (18:30)
[2017-11-26] MEDS ORDERED: DIPHENHYDRAMINE 50MG/ML VIAL IV PRN (18:30)
[2017-11-26] MEDS ORDERED: ONDANSETRON HCL 4MG/2ML INJ IV PRN (18:30)
[2017-11-26] MEDS ORDERED: MAGNESIUM/ALUMINUM HYDROXIDE/SIMETHICONE 30ML UDC PO PRN (18:30)
[2017-11-26] MEDS ORDERED: GUAIFENESIN 200MG/10ML SUGAR FREE UDC PO PRN (18:30)
[2017-11-26 20:16] LABS: *AMPHETAMINES SCREEN URINE NEGATIVE (NEGATIVE); *BARBITURATES SCREEN URINE NEGATIVE (NEGATIVE); *BENZODIAZEPINES SCREEN URINE NEGATIVE (NEGATIVE); *COCAINE SCREEN URINE NEGATIVE (NEGATIVE); CANNABINOID URINE SCREEN NEGATIVE (NEGATIVE); METHADONE URINE SCREEN NEGATIVE (NEGATIVE); OPIATES URINE SCREEN NEGATIVE (NEGATIVE); PHENCYCLIDINE URINE SCREEN NEGATIVE (NEGATIVE)
[2017-11-26 21:55] VITALS: BP 129/96
[2017-11-26] MEDS ORDERED: ENOXAPARIN 80MG/0.8ML SYR SUBCUT SCH (23:00)
[2017-11-26] MEDS: DILTIAZEM HCL 60MG TABLET PO SCH (23:00)
[2017-11-26] MEDS ORDERED: ENOXAPARIN 60MG/0.6ML SYR SUBCUT SCH (23:00)
[2017-11-27] VITALS (7 sets, daily range): BP systolic 96–139; BP diastolic 44–94
[2017-11-27] MEDS ORDERED: LEVOFLOXACIN 500MG PREMIX 100 ML IV NR (01:00)
[2017-11-27] MEDS: METHYLPREDNISOLONE SOD SUCC 40 MG/ML VIAL IV SCH ×4 (01:37→21:44)
[2017-11-27] MEDS: CARVEDILOL 3.125 MG TABLET PO SCH ×2 (01:37→08:16)
[2017-11-27] MEDS: ATORVASTATIN CALCIUM 40MG TABLET PO SCH ×2 (01:37→21:43)
[2017-11-27] MEDS: DILTIAZEM HCL 60MG TABLET PO SCH ×3 (05:03→21:55)
[2017-11-27] MEDS ORDERED: DEXTROSE 50% WATER 50ML SYRINGE IV PRN (07:00)
[2017-11-27] MEDS: BLOOD SUGAR DIAGNOSTIC STRIP TEST SCH ×4 (07:34→21:42)
[2017-11-27] MEDS: INSULIN LISPRO 100 UNITS/ML SUBCUT SCH ×4 (07:50→21:00)
[2017-11-27] MEDS: ASPIRIN 81MG EC TABLET PO SCH (08:12)
[2017-11-27] MEDS: HYDROCODONE/ACETAMINOPHEN 10/325MG TABLET PO PRN (08:13)
[2017-11-27] MEDS: ENOXAPARIN 80MG/0.8ML SYR SUBCUT SCH (08:17)
[2017-11-27 09:48] LABS: HEMATOCRIT. 29.2 % (36.0-48.0); HEMOGLOBIN. 9.2 g/dL (12.0-16.0); MEAN CORPUSCULAR HEMOGLOBIN 26.1 pg (28.0-32.0); MEAN CORPUSCULAR VOLUME 82.9 fL (81.0-99.0); MEAN PLATELET VOLUME 11.1 fl (7.4-10.4); PLATELET 105 x1000/uL (130-400); RED BLOOD CELL COUNT 3.52 mill/uL (4.2-5.4); RED CELL DISTRIBUTION WIDTH 23.1 % (11.6-14.6)
[2017-11-27 15:30] LABS: PLATELET ESTIMATE SLIGHTLY DECREASED
[2017-11-27] MEDS ORDERED: FUROSEMIDE 20MG TABLET PO NR (16:30)
[2017-11-27] MEDS ORDERED: SODIUM POLYSTYRENE SULFONATE 15 G/60 ML BOT PO NR (17:00)
[2017-11-27] MEDS: CARVEDILOL 6.25 MG TABLET PO SCH (21:46)
[2017-11-28] VITALS: BP 105/72
[2017-11-28] MEDS ORDERED: LEVOFLOXACIN 250MG PREMIX 50 ML IV SCH (01:00)
[2017-11-28 04:02] VITALS: BP 103/87
[2017-11-28] MEDS: DILTIAZEM HCL 60MG TABLET PO SCH ×3 (05:58→22:04)
[2017-11-28] MEDS: BLOOD SUGAR DIAGNOSTIC STRIP TEST SCH ×4 (06:48→22:04)
[2017-11-28] MEDS: INSULIN LISPRO 100 UNITS/ML SUBCUT SCH ×4 (06:48→22:07)
[2017-11-28] MEDS: METHYLPREDNISOLONE SOD SUCC 40 MG/ML VIAL IV SCH ×2 (06:49→13:52)
[2017-11-28 08:00] VITALS: BP 98/73
[2017-11-28] MEDS: CARVEDILOL 6.25 MG TABLET PO SCH ×2 (08:06→22:03)
[2017-11-28] MEDS: ENOXAPARIN 80MG/0.8ML SYR SUBCUT SCH ×2 (09:00→13:46)
[2017-11-28] MEDS: ASPIRIN 81MG EC TABLET PO SCH (09:23)
[2017-11-28] MEDS: SODIUM CHLORIDE 0.45% 1,000 ML IV SCH (09:25)
[2017-11-28 12:00] VITALS: BP 115/77
[2017-11-28 13:32] LABS: BASOPHILS % 0.3 % (0.0-2.0); HEMATOCRIT. 28.5 % (36.0-48.0); HEMOGLOBIN. 8.8 g/dL (12.0-16.0); LYMPHOCYTES % 12.5 % (20.0-50.0); MEAN CORPUSCULAR HEMOGLOBIN 26.5 pg (28.0-32.0); MEAN CORPUSCULAR VOLUME 86.1 fL (81.0-99.0); MEAN PLATELET VOLUME 11.5 fl (7.4-10.4); MONOCYTES % 2.6 % (2.0-8.0); NEUTROPHILS % 84.6 % (40.0-76.0); PLATELET 108 x1000/uL (130-400); RED BLOOD CELL COUNT 3.31 mill/uL (4.2-5.4); RED CELL DISTRIBUTION WIDTH 23.1 % (11.6-14.6)
[2017-11-28] MEDS: HYDROCODONE/ACETAMINOPHEN 5/325MG TABLET PO PRN (13:51)
[2017-11-28 16:00] VITALS: BP 110/77
[2017-11-28] MEDS ORDERED: SODIUM POLYSTYRENE SULFONATE 15 G/60 ML BOT PO SCH (17:00)
[2017-11-28] MEDS: PREDNISONE 20MG TABLET PO SCH (17:13)
[2017-11-28 20:00] VITALS: BP 120/76
[2017-11-28] MEDS: ATORVASTATIN CALCIUM 40MG TABLET PO SCH (22:04)
[2017-11-29] VITALS: BP 95/63
[2017-11-29 04:00] VITALS: BP 112/77
[2017-11-29] MEDS: SODIUM CHLORIDE 0.45% 1,000 ML IV SCH ×2 (04:00→07:16)
[2017-11-29] MEDS: DILTIAZEM HCL 60MG TABLET PO SCH ×4 (07:18→23:08)
[2017-11-29] MEDS: BLOOD SUGAR DIAGNOSTIC STRIP TEST SCH ×4 (07:21→21:00)
[2017-11-29] MEDS: INSULIN LISPRO 100 UNITS/ML SUBCUT SCH ×4 (07:50→21:00)
[2017-11-29 08:00] VITALS: BP 101/64
[2017-11-29] MEDS ORDERED: NA PHOS,M-B/NA PHOS,DI-BA ENEMA 118ML PR NR (08:30)
[2017-11-29 08:36] LABS: BASOPHILS % 0.1 % (0.0-2.0); HEMOGLOBIN. 8.8 g/dL (12.0-16.0); LYMPHOCYTES % 9.2 % (20.0-50.0); MEAN CORPUSCULAR HEMOGLOBIN 26.2 pg (28.0-32.0); MEAN CORPUSCULAR VOLUME 83.3 fL (81.0-99.0); MEAN PLATELET VOLUME 11.7 fl (7.4-10.4); MONOCYTES % 3.3 % (2.0-8.0); NEUTROPHILS % 87.4 % (40.0-76.0); PLATELET 118 x1000/uL (130-400); RED BLOOD CELL COUNT 3.37 mill/uL (4.2-5.4); RED CELL DISTRIBUTION WIDTH 23.2 % (11.6-14.6)
[2017-11-29] MEDS: BUDESONIDE 0.5MG/2ML NEB HHN SCH ×2 (08:55→20:35)
[2017-11-29] MEDS: IPRATROPIUM/ALBUTEROL 0.5-3(2.5)MG/3ML NEB INH PRN ×2 (08:55→20:34)
[2017-11-29] MEDS: CARVEDILOL 6.25 MG TABLET PO SCH ×3 (09:00→23:07)
[2017-11-29] MEDS ORDERED: SODIUM POLYSTYRENE SULFONATE 15 G/60 ML BOT PO NR (10:08)
[2017-11-29] MEDS: ASPIRIN 81MG EC TABLET PO SCH (10:16)
[2017-11-29] MEDS: DOCUSATE SODIUM 100MG CAPSULE PO PRN (10:16)
[2017-11-29] MEDS: PREDNISONE 20MG TABLET PO SCH (10:16)
[2017-11-29] MEDS: ENOXAPARIN 80MG/0.8ML SYR SUBCUT SCH (10:16)
[2017-11-29 12:00] VITALS: BP 101/76
[2017-11-29 16:00] VITALS: BP 118/81
[2017-11-29] MEDS: HYDROCODONE/ACETAMINOPHEN 10/325MG TABLET PO PRN (16:43)
[2017-11-29 20:00] VITALS: BP 141/78
[2017-11-29] MEDS: ATORVASTATIN CALCIUM 40MG TABLET PO SCH (22:21)
[2017-11-29] MEDS: HYDROCODONE/ACETAMINOPHEN 5/325MG TABLET PO PRN (23:10)
[2017-11-30] VITALS: BP 119/68
[2017-11-30 04:00] VITALS: BP 101/67
[2017-11-30] MEDS ORDERED: DILTIAZEM HCL 60MG TABLET PO SCH (06:00)
[2017-11-30 06:39] LABS: HEMOGLOBIN. 8.6 g/dL (12.0-16.0); MEAN CORPUSCULAR HEMOGLOBIN 26.3 pg (28.0-32.0); MEAN CORPUSCULAR VOLUME 82.5 fL (81.0-99.0); MEAN PLATELET VOLUME 10.9 fl (7.4-10.4); PLATELET 111 x1000/uL (130-400); RED BLOOD CELL COUNT 3.27 mill/uL (4.2-5.4); RED CELL DISTRIBUTION WIDTH 23.1 % (11.6-14.6)
[2017-11-30 07:38] VITALS: BP 122/79
[2017-11-30 07:39] LABS: PHOSPHORUS 6.1 mg/dL (2.5-4.9)
[2017-11-30] MEDS: BLOOD SUGAR DIAGNOSTIC STRIP TEST SCH ×4 (07:40→21:00)
[2017-11-30] MEDS: INSULIN LISPRO 100 UNITS/ML SUBCUT SCH ×4 (07:47→21:00)
[2017-11-30] MEDS ORDERED: ZOLPIDEM TARTRATE 5MG TABLET PO PRN (08:45)
[2017-11-30] MEDS: HYDROCODONE/ACETAMINOPHEN 5/325MG TABLET PO PRN (08:51)
[2017-11-30] MEDS: ENOXAPARIN 60MG/0.6ML SYR SUBCUT SCH (08:52)
[2017-11-30] MEDS ORDERED: FUROSEMIDE 40MG/4ML VIAL IVP NR (09:00)
[2017-11-30] MEDS: ASPIRIN 81MG EC TABLET PO SCH (09:16)
[2017-11-30] MEDS: CARVEDILOL 6.25 MG TABLET PO SCH ×2 (09:16→22:24)
[2017-11-30] MEDS: BUDESONIDE 0.5MG/2ML NEB HHN SCH ×2 (09:35→22:18)
[2017-11-30] MEDS: IPRATROPIUM/ALBUTEROL 0.5-3(2.5)MG/3ML NEB INH PRN ×2 (09:35→22:18)
[2017-11-30 11:24] VITALS: BP 113/63
[2017-11-30] MEDS: CALCIUM ACETATE 667MG CAPSULE PO SCH ×2 (12:02→17:53)
[2017-11-30 14:26] LABS: NUCLEATED RED BLOOD CELLS 2 /100 WBC; PLATELET ESTIMATE SLIGHTLY DECREASED
[2017-11-30 16:00] VITALS: BP 106/64
[2017-11-30] MEDS: DILTIAZEM HCL 60MG TABLET PO SCH ×2 (16:36→22:23)
[2017-11-30 20:00] VITALS: BP 116/61
[2017-11-30] MEDS: ATORVASTATIN CALCIUM 40MG TABLET PO SCH (22:24)
[2017-12-01] VITALS (9 sets, daily range): BP systolic 99–129; BP diastolic 49–85
[2017-12-01] MEDS: HYDROCODONE/ACETAMINOPHEN 10/325MG TABLET PO PRN ×2 (01:42→10:29)
[2017-12-01] MEDS: DILTIAZEM HCL 60MG TABLET PO SCH ×2 (04:00→09:18)
[2017-12-01] MEDS: BLOOD SUGAR DIAGNOSTIC STRIP TEST SCH ×4 (06:10→20:16)
[2017-12-01 06:29] LABS: HEMATOCRIT. 26.2 % (36.0-48.0); HEMOGLOBIN. 8.4 g/dL (12.0-16.0); MEAN CORPUSCULAR HEMOGLOBIN 26.4 pg (28.0-32.0); MEAN CORPUSCULAR VOLUME 82.1 fL (81.0-99.0); MEAN PLATELET VOLUME 11.1 fl (7.4-10.4); PLATELET 113 x1000/uL (130-400); RED BLOOD CELL COUNT 3.19 mill/uL (4.2-5.4); RED CELL DISTRIBUTION WIDTH 22.3 % (11.6-14.6)
[2017-12-01] MEDS: INSULIN LISPRO 100 UNITS/ML SUBCUT SCH ×4 (07:50→20:16)
[2017-12-01] MEDS ORDERED: FUROSEMIDE 40MG/4ML VIAL IVP SCH (09:00)
[2017-12-01] MEDS ORDERED: FUROSEMIDE 40MG TABLET PO SCH (09:00)
[2017-12-01] MEDS: CALCIUM ACETATE 667MG CAPSULE PO SCH ×3 (09:18→17:59)
[2017-12-01] MEDS: ASPIRIN 81MG EC TABLET PO SCH (09:18)
[2017-12-01] MEDS: CARVEDILOL 6.25 MG TABLET PO SCH (09:18)
[2017-12-01] MEDS: ENOXAPARIN 60MG/0.6ML SYR SUBCUT SCH (09:19)
[2017-12-01 09:24] LABS: PLATELET ESTIMATE DECREASED
[2017-12-01] MEDS: BUDESONIDE 0.5MG/2ML NEB HHN SCH (09:32)
[2017-12-01] MEDS: FUROSEMIDE 40MG/4ML VIAL IVP SCH (17:59)
[2017-12-01] MEDS: POTASSIUM CHLORIDE 20MEQ TABLET SR PO SCH (20:11)
[2017-12-01] MEDS: ATORVASTATIN CALCIUM 40MG TABLET PO SCH (20:11)
[2017-12-02] VITALS (10 sets, daily range): BP systolic 116–140; BP diastolic 62–87
[2017-12-02] MEDS: BLOOD SUGAR DIAGNOSTIC STRIP TEST SCH ×4 (06:36→21:50)
[2017-12-02] MEDS: INSULIN LISPRO 100 UNITS/ML SUBCUT SCH ×4 (06:37→21:00)
[2017-12-02 07:52] LABS: BASOPHILS % 0.6 % (0.0-2.0); EOSINOPHILS % 1.1 % (0.0-5.0); HEMATOCRIT. 28.9 % (36.0-48.0); HEMOGLOBIN. 9.2 g/dL (12.0-16.0); LYMPHOCYTES % 8.5 % (20.0-50.0); MEAN CORPUSCULAR HEMOGLOBIN 25.9 pg (28.0-32.0); MEAN CORPUSCULAR VOLUME 81.2 fL (81.0-99.0); MEAN PLATELET VOLUME 10.6 fl (7.4-10.4); MONOCYTES % 8.1 % (2.0-8.0); NEUTROPHILS % 81.7 % (40.0-76.0); PLATELET 130 x1000/uL (130-400); RED BLOOD CELL COUNT 3.56 mill/uL (4.2-5.4); RED CELL DISTRIBUTION WIDTH 22.6 % (11.6-14.6)
[2017-12-02] MEDS: CALCIUM ACETATE 667MG CAPSULE PO SCH ×3 (08:05→17:31)
[2017-12-02] MEDS: ASPIRIN 81MG EC TABLET PO SCH (08:05)
[2017-12-02] MEDS: FUROSEMIDE 40MG/4ML VIAL IVP SCH ×2 (08:05→17:31)
[2017-12-02] MEDS: POTASSIUM CHLORIDE 20MEQ TABLET SR PO SCH (08:05)
[2017-12-02] MEDS: ENOXAPARIN 60MG/0.6ML SYR SUBCUT SCH (08:06)
[2017-12-02] MEDS ORDERED: MORPHINE SULFATE 4 MG/ML CPJ (NOT FOR IM USE) IV NR (09:00)
[2017-12-02] MEDS: CARVEDILOL 3.125 MG TABLET PO SCH ×2 (09:06→21:49)
[2017-12-02] MEDS ORDERED: MAGNESIUM 2 G PREMIX 50 ML IV NR (11:30)
[2017-12-02] MEDS ORDERED: POTASSIUM CHLORIDE 20MEQ TABLET SR PO SCH ×2 (12:30→18:30)
[2017-12-02] MEDS: TRAMADOL 50MG TABLET PO PRN (21:49)
[2017-12-02] MEDS: ATORVASTATIN CALCIUM 40MG TABLET PO SCH (21:49)
[2017-12-03] VITALS (78 sets, daily range): BP systolic 84–140; BP diastolic 44–84
[2017-12-03 04:47] LABS: BASOPHILS % 0.1 % (0.0-2.0); HEMATOCRIT. 29.1 % (36.0-48.0); HEMOGLOBIN. 9.2 g/dL (12.0-16.0); LYMPHOCYTES % 12.7 % (20.0-50.0); MEAN CORPUSCULAR HEMOGLOBIN 25.8 pg (28.0-32.0); MEAN CORPUSCULAR VOLUME 81.5 fL (81.0-99.0); MEAN PLATELET VOLUME 10.5 fl (7.4-10.4); MONOCYTES % 9.2 % (2.0-8.0); PLATELET 127 x1000/uL (130-400); RED BLOOD CELL COUNT 3.57 mill/uL (4.2-5.4); RED CELL DISTRIBUTION WIDTH 22.4 % (11.6-14.6)
[2017-12-03] MEDS ORDERED: MILRINONE 20MG-DEXT 5% PREMIX 100 ML IV PRN (06:30)
[2017-12-03] MEDS: CARVEDILOL 3.125 MG TABLET PO SCH ×3 (06:34→21:02)
[2017-12-03] MEDS: BLOOD SUGAR DIAGNOSTIC STRIP TEST SCH ×4 (07:50→20:26)
[2017-12-03] MEDS: MILRINONE 20MG-DEXT 5% PREMIX 100 ML IV SCH ×2 (07:58→23:25)
[2017-12-03] MEDS: INSULIN LISPRO 100 UNITS/ML SUBCUT SCH ×4 (08:11→20:26)
[2017-12-03] MEDS: ASPIRIN 81MG EC TABLET PO SCH (08:47)
[2017-12-03] MEDS: FUROSEMIDE 40MG/4ML VIAL IVP SCH ×2 (08:47→16:32)
[2017-12-03] MEDS: CALCIUM ACETATE 667MG CAPSULE PO SCH ×3 (08:47→17:36)
[2017-12-03] MEDS: POTASSIUM CHLORIDE 20MEQ TABLET SR PO SCH (08:47)
[2017-12-03] MEDS: ENOXAPARIN 80MG/0.8ML SYR SUBCUT SCH (08:47)
[2017-12-03] MEDS: OMEPRAZOLE 20MG CAPSULE EXTENDED RELEASE PO SCH (12:53)
[2017-12-03] MEDS: TRAMADOL 50MG TABLET PO PRN (16:12)
[2017-12-03] MEDS ORDERED: CARVEDILOL 3.125 MG TABLET PO NR (16:45)
[2017-12-03] MEDS: HYDROCODONE/ACETAMINOPHEN 5/325MG TABLET PO PRN ×2 (19:27→19:34)
[2017-12-03] MEDS: ATORVASTATIN CALCIUM 40MG TABLET PO SCH (21:02)
[2017-12-04] VITALS (92 sets, daily range): BP systolic 84–151; BP diastolic 47–97
[2017-12-04] MEDS: TRAMADOL 50MG TABLET PO PRN ×3 (04:16→20:29)
[2017-12-04 05:32] LABS: BASOPHILS % 0.1 % (0.0-2.0); EOSINOPHILS % 1.4 % (0.0-5.0); HEMATOCRIT. 29.8 % (36.0-48.0); HEMOGLOBIN. 9.4 g/dL (12.0-16.0); LYMPHOCYTES % 7.3 % (20.0-50.0); MEAN CORPUSCULAR HEMOGLOBIN 25.6 pg (28.0-32.0); MEAN CORPUSCULAR VOLUME 80.9 fL (81.0-99.0); MEAN PLATELET VOLUME 10.6 fl (7.4-10.4); MONOCYTES % 7.3 % (2.0-8.0); NEUTROPHILS % 83.9 % (40.0-76.0); PLATELET 135 x1000/uL (130-400); RED BLOOD CELL COUNT 3.69 mill/uL (4.2-5.4); RED CELL DISTRIBUTION WIDTH 22.7 % (11.6-14.6)
[2017-12-04] MEDS: BLOOD SUGAR DIAGNOSTIC STRIP TEST SCH ×4 (07:48→20:30)
[2017-12-04] MEDS: INSULIN LISPRO 100 UNITS/ML SUBCUT SCH ×4 (07:49→21:00)
[2017-12-04] MEDS: OMEPRAZOLE 20MG CAPSULE EXTENDED RELEASE PO SCH (08:33)
[2017-12-04] MEDS: CALCIUM ACETATE 667MG CAPSULE PO SCH ×3 (08:33→17:35)
[2017-12-04] MEDS: CARVEDILOL 3.125 MG TABLET PO SCH ×2 (08:34→09:06)
[2017-12-04] MEDS: FUROSEMIDE 40MG/4ML VIAL IVP SCH ×2 (08:34→17:35)
[2017-12-04] MEDS: ASPIRIN 81MG EC TABLET PO SCH (08:34)
[2017-12-04] MEDS: POTASSIUM CHLORIDE 20MEQ TABLET SR PO SCH (08:34)
[2017-12-04] MEDS: ENOXAPARIN 80MG/0.8ML SYR SUBCUT SCH (08:34)
[2017-12-04] MEDS: HYDROCODONE/ACETAMINOPHEN 5/325MG TABLET PO PRN ×2 (08:40→17:50)
[2017-12-04] MEDS ORDERED: CARVEDILOL 3.125 MG TABLET PO NR (10:15)
[2017-12-04 10:33] LABS: PHOSPHORUS 2.3 mg/dL (2.5-4.9)
[2017-12-04] MEDS: POTASSIUM CHLORIDE 20MEQ/PACKET PO SCH (17:35)
[2017-12-04] MEDS: ATORVASTATIN CALCIUM 40MG TABLET PO SCH (20:28)
[2017-12-04] MEDS: CARVEDILOL 6.25 MG TABLET PO SCH (20:30)
[2017-12-04] MEDS: MILRINONE 20MG-DEXT 5% PREMIX 100 ML IV SCH (20:41)
[2017-12-05] VITALS (87 sets, daily range): BP systolic 50–142; BP diastolic 29–93
[2017-12-05 04:42] LABS: BASOPHILS % 0.1 % (0.0-2.0); HEMATOCRIT. 25.8 % (36.0-48.0); HEMOGLOBIN. 8.2 g/dL (12.0-16.0); LYMPHOCYTES % 8.4 % (20.0-50.0); MEAN CORPUSCULAR HEMOGLOBIN 25.6 pg (28.0-32.0); MEAN CORPUSCULAR VOLUME 80.7 fL (81.0-99.0); MEAN PLATELET VOLUME 10.6 fl (7.4-10.4); MONOCYTES % 9.4 % (2.0-8.0); NEUTROPHILS % 80.1 % (40.0-76.0); PLATELET 119 x1000/uL (130-400); RED CELL DISTRIBUTION WIDTH 22.1 % (11.6-14.6)
[2017-12-05] MEDS: HYDROCODONE/ACETAMINOPHEN 5/325MG TABLET PO PRN (04:57)
[2017-12-05] MEDS: OMEPRAZOLE 20MG CAPSULE EXTENDED RELEASE PO SCH (06:32)
[2017-12-05] MEDS ORDERED: MAGNESIUM 2 G PREMIX 50 ML IV NR (08:00)
[2017-12-05] MEDS: BLOOD SUGAR DIAGNOSTIC STRIP TEST SCH ×4 (08:13→21:31)
[2017-12-05] MEDS: INSULIN LISPRO 100 UNITS/ML SUBCUT SCH ×4 (08:13→21:00)
[2017-12-05] MEDS: POTASSIUM CHLORIDE 20MEQ/PACKET PO SCH ×2 (08:45→17:41)
[2017-12-05] MEDS: CARVEDILOL 6.25 MG TABLET PO SCH ×2 (08:45→21:34)
[2017-12-05] MEDS: FUROSEMIDE 40MG/4ML VIAL IVP SCH ×2 (08:45→17:41)
[2017-12-05] MEDS: ENOXAPARIN 80MG/0.8ML SYR SUBCUT SCH (08:46)
[2017-12-05] MEDS ORDERED: POTASSIUM PHOS,M-BASIC-D-BASIC 15 MMOL in DEXT 5% WATER 245 ML IV SCH (09:00)
[2017-12-05] MEDS ORDERED: ACETAMINOPHEN 500MG TABLET PO PRN (09:30)
[2017-12-05] MEDS: ASPIRIN 81MG EC TABLET PO SCH (10:16)
[2017-12-05] MEDS: TRAMADOL 50MG TABLET PO PRN (12:54)
[2017-12-05] MEDS: MILRINONE 20MG-DEXT 5% PREMIX 100 ML IV SCH (16:56)
[2017-12-05] MEDS ORDERED: CARVEDILOL 6.25 MG TABLET PO SCH (21:00)
[2017-12-05] MEDS ORDERED: ENOXAPARIN 80MG/0.8ML SYR SUBCUT SCH (21:00)
[2017-12-05] MEDS: ATORVASTATIN CALCIUM 40MG TABLET PO SCH (21:10)
[2017-12-05] MEDS: METOPROLOL TARTRATE 25MG TABLET PO SCH ×2 (21:11→21:34)
[2017-12-05 21:53] LABS: INR 1.1; PROTHROMBIN TIME 11.2 sec (9.4-11.6)
[2017-12-06] VITALS (75 sets, daily range): BP systolic 77–143; BP diastolic 49–90
[2017-12-06] MEDS: HYDROCODONE/ACETAMINOPHEN 5/325MG TABLET PO PRN ×2 (00:53→18:12)
[2017-12-06 05:44] LABS: BASOPHILS % 0.2 % (0.0-2.0); EOSINOPHILS % 1.1 % (0.0-5.0); HEMATOCRIT. 25.1 % (36.0-48.0); HEMOGLOBIN. 8.1 g/dL (12.0-16.0); LYMPHOCYTES % 8.2 % (20.0-50.0); MEAN CORPUSCULAR HEMOGLOBIN 25.8 pg (28.0-32.0); MEAN CORPUSCULAR VOLUME 80.4 fL (81.0-99.0); MEAN PLATELET VOLUME 10.5 fl (7.4-10.4); MONOCYTES % 10.2 % (2.0-8.0); NEUTROPHILS % 80.3 % (40.0-76.0); PLATELET 113 x1000/uL (130-400); RED BLOOD CELL COUNT 3.12 mill/uL (4.2-5.4); RED CELL DISTRIBUTION WIDTH 21.9 % (11.6-14.6)
[2017-12-06 06:22] LABS: CHLORIDE 102 mEq/L (98-107)
[2017-12-06 07:14] LABS: PHOSPHORUS 1.8 mg/dL (2.5-4.9)
[2017-12-06] MEDS: BLOOD SUGAR DIAGNOSTIC STRIP TEST SCH ×4 (07:46→21:09)
[2017-12-06] MEDS: INSULIN LISPRO 100 UNITS/ML SUBCUT SCH ×4 (07:47→21:00)
[2017-12-06] MEDS: CARVEDILOL 6.25 MG TABLET PO SCH ×2 (08:07→21:03)
[2017-12-06] MEDS: FUROSEMIDE 40MG/4ML VIAL IVP SCH ×2 (08:08→18:12)
[2017-12-06] MEDS: METOPROLOL TARTRATE 25MG TABLET PO SCH (08:08)
[2017-12-06] MEDS: POTASSIUM CHLORIDE 20MEQ/PACKET PO SCH ×2 (08:08→18:12)
[2017-12-06] MEDS: OMEPRAZOLE 20MG CAPSULE EXTENDED RELEASE PO SCH (08:09)
[2017-12-06] MEDS: MILRINONE 20MG-DEXT 5% PREMIX 100 ML IV SCH (08:42)
[2017-12-06] MEDS ORDERED: METOPROLOL TARTRATE 25MG TABLET PO SCH (10:00)
[2017-12-06] MEDS ORDERED: KCL 20MEQ/100ML PREMIX 100 ML IV SCH (10:00)
[2017-12-06] MEDS ORDERED: POTASSIUM PHOS,M-BASIC-D-BASIC 15 MMOL in DEXT 5% WATER 250 ML IV SCH (10:30)
[2017-12-06] MEDS ORDERED: SODIUM CHLORIDE 0.9% 10ML VIAL ONE ×2 (12:39→12:55)
[2017-12-06] MEDS ORDERED: CEFAZOLIN SODIUM 1000MG/VIAL ONE (12:39)
[2017-12-06] MEDS ORDERED: FENTANYL CITRATE/PF 50MCG/ML 2ML VIAL ONE (12:39)
[2017-12-06] MEDS ORDERED: MIDAZOLAM HCL 2 MG/2 ML VIAL ONE (12:39)
[2017-12-06] MEDS ORDERED: DIPHENHYDRAMINE 50MG/ML VIAL ONE (12:40)
[2017-12-06] MEDS ORDERED: GENTAMICIN SULF 40MG/ML 2ML VIAL ONE (12:47)
[2017-12-06] MEDS ORDERED: IODIXANOL 320MG/ML 100 ML BOTTLE IV ONE (12:49)
[2017-12-06] MEDS ORDERED: GENTAMICIN/NS IRRIGATION 500 ML IR ONE (12:51)
[2017-12-06] MEDS ORDERED: LIDOCAINE HCL 1% 20ML VIAL (Pyxis) INJ ONE (12:55)
[2017-12-06] MEDS ORDERED: LIDOCAINE HCL/PF 1% 10 MG/ML 5ML VIAL ONE (13:06)
[2017-12-06] MEDS ORDERED: PROPOFOL 200MG/20ML VIAL IV ONE (13:06)
[2017-12-06] MEDS ORDERED: METOPROLOL TARTRATE 50MG TABLET PO SCH (21:00)
[2017-12-06] MEDS: ATORVASTATIN CALCIUM 40MG TABLET PO SCH (21:01)
[2017-12-06] MEDS: METOPROLOL TARTRATE 100MG TABLET PO SCH (21:01)
[2017-12-07] VITALS (48 sets, daily range): BP systolic 94–129; BP diastolic 20–88
[2017-12-07 05:37] LABS: BASOPHILS % 0.4 % (0.0-2.0); HEMATOCRIT. 30.3 % (36.0-48.0); HEMOGLOBIN. 9.4 g/dL (12.0-16.0); LYMPHOCYTES % 10.8 % (20.0-50.0); MEAN CORPUSCULAR HEMOGLOBIN 25.7 pg (28.0-32.0); MEAN PLATELET VOLUME 10.6 fl (7.4-10.4); MONOCYTES % 14.4 % (2.0-8.0); NEUTROPHILS % 73.4 % (40.0-76.0); PLATELET 111 x1000/uL (130-400); RED BLOOD CELL COUNT 3.65 mill/uL (4.2-5.4); RED CELL DISTRIBUTION WIDTH 22.5 % (11.6-14.6)
[2017-12-07 05:58] LABS: CHLORIDE 103 mEq/L (98-107); PHOSPHORUS 2.9 mg/dL (2.5-4.9)
[2017-12-07] MEDS: INSULIN LISPRO 100 UNITS/ML SUBCUT SCH ×4 (07:21→21:59)
[2017-12-07] MEDS: BLOOD SUGAR DIAGNOSTIC STRIP TEST SCH ×4 (07:21→22:00)
[2017-12-07] MEDS: OMEPRAZOLE 20MG CAPSULE EXTENDED RELEASE PO SCH (08:09)
[2017-12-07] MEDS: POTASSIUM CHLORIDE 20MEQ/PACKET PO SCH ×2 (08:10→16:39)
[2017-12-07] MEDS: FUROSEMIDE 40MG/4ML VIAL IVP SCH ×2 (08:10→16:39)
[2017-12-07] MEDS: CARVEDILOL 6.25 MG TABLET PO SCH ×2 (08:10→22:11)
[2017-12-07] MEDS: METOPROLOL TARTRATE 100MG TABLET PO SCH (08:10)
[2017-12-07] MEDS: ASPIRIN 81MG EC TABLET PO SCH (09:35)
[2017-12-07] MEDS: DOCUSATE SODIUM 100MG CAPSULE PO PRN (16:39)
[2017-12-07] MEDS: METOPROLOL TARTRATE 50MG TABLET PO SCH ×2 (18:23→22:00)
[2017-12-07] MEDS: ATORVASTATIN CALCIUM 40MG TABLET PO SCH (21:00)
[2017-12-08] VITALS (12 sets, daily range): BP systolic 101–126; BP diastolic 59–72
[2017-12-08] MEDS: METOPROLOL TARTRATE 50MG TABLET PO SCH ×4 (00:17→22:00)
[2017-12-08] MEDS: OMEPRAZOLE 20MG CAPSULE EXTENDED RELEASE PO SCH (05:54)
[2017-12-08] MEDS: BLOOD SUGAR DIAGNOSTIC STRIP TEST SCH ×4 (05:56→21:42)
[2017-12-08 06:48] LABS: BASOPHILS % 0.3 % (0.0-2.0); EOSINOPHILS % 0.5 % (0.0-5.0); HEMATOCRIT. 25.2 % (36.0-48.0); HEMOGLOBIN. 8.2 g/dL (12.0-16.0); LYMPHOCYTES % 9.9 % (20.0-50.0); MEAN CORPUSCULAR HEMOGLOBIN 26.2 pg (28.0-32.0); MEAN CORPUSCULAR VOLUME 80.4 fL (81.0-99.0); MEAN PLATELET VOLUME 11.4 fl (7.4-10.4); MONOCYTES % 9.4 % (2.0-8.0); NEUTROPHILS % 79.9 % (40.0-76.0); PLATELET 101 x1000/uL (130-400); RED BLOOD CELL COUNT 3.13 mill/uL (4.2-5.4); RED CELL DISTRIBUTION WIDTH 22.4 % (11.6-14.6)
[2017-12-08 07:07] LABS: CHLORIDE 103 mEq/L (98-107); PHOSPHORUS 1.8 mg/dL (2.5-4.9)
[2017-12-08] MEDS: INSULIN LISPRO 100 UNITS/ML SUBCUT SCH ×4 (07:20→21:00)
[2017-12-08] MEDS: DOCUSATE SODIUM 100MG CAPSULE PO PRN (08:51)
[2017-12-08] MEDS: FUROSEMIDE 40MG/4ML VIAL IVP SCH (08:51)
[2017-12-08] MEDS: POTASSIUM CHLORIDE 20MEQ/PACKET PO SCH ×2 (08:53→17:25)
[2017-12-08] MEDS: ASPIRIN 81MG EC TABLET PO SCH (08:53)
[2017-12-08] MEDS: CARVEDILOL 6.25 MG TABLET PO SCH ×2 (08:53→21:38)
[2017-12-08] MEDS: HYDROCODONE/ACETAMINOPHEN 5/325MG TABLET PO PRN (09:04)
[2017-12-08] MEDS: DIGOXIN 125MCG TABLET PO SCH (17:25)
[2017-12-08] MEDS ORDERED: EPOETIN ALFA 10000UNITS/ML VIAL SUBCUT SCH (21:00)
[2017-12-08] MEDS: ATORVASTATIN CALCIUM 40MG TABLET PO SCH (21:38)
[2017-12-09] VITALS (20 sets, daily range): BP systolic 96–121; BP diastolic 55–81
[2017-12-09] MEDS: HYDROCODONE/ACETAMINOPHEN 5/325MG TABLET PO PRN ×4 (01:07→21:18)
[2017-12-09] MEDS: METOPROLOL TARTRATE 50MG TABLET PO SCH ×3 (01:07→14:00)
[2017-12-09] MEDS: BLOOD SUGAR DIAGNOSTIC STRIP TEST SCH ×4 (05:56→20:15)
[2017-12-09] MEDS: OMEPRAZOLE 20MG CAPSULE EXTENDED RELEASE PO SCH (05:56)
[2017-12-09 06:11] LABS: BASOPHILS % 0.5 % (0.0-2.0); EOSINOPHILS % 0.7 % (0.0-5.0); HEMATOCRIT. 25.5 % (36.0-48.0); HEMOGLOBIN. 8.1 g/dL (12.0-16.0); LYMPHOCYTES % 11.6 % (20.0-50.0); MEAN CORPUSCULAR HEMOGLOBIN 25.8 pg (28.0-32.0); MEAN PLATELET VOLUME 11.6 fl (7.4-10.4); MONOCYTES % 7.7 % (2.0-8.0); NEUTROPHILS % 79.5 % (40.0-76.0); PLATELET 104 x1000/uL (130-400); RED BLOOD CELL COUNT 3.15 mill/uL (4.2-5.4); RED CELL DISTRIBUTION WIDTH 22.3 % (11.6-14.6)
[2017-12-09] MEDS: INSULIN LISPRO 100 UNITS/ML SUBCUT SCH ×2 (07:20→12:11)
[2017-12-09 07:47] LABS: PLATELET ESTIMATE DECREASED
[2017-12-09] MEDS: FUROSEMIDE 20MG TABLET PO SCH ×2 (08:10→20:28)
[2017-12-09] MEDS: ASPIRIN 81MG EC TABLET PO SCH (08:10)
[2017-12-09] MEDS: DOCUSATE SODIUM 100MG CAPSULE PO PRN ×2 (08:10→17:25)
[2017-12-09] MEDS: POTASSIUM CHLORIDE 20MEQ/PACKET PO SCH ×2 (08:10→17:27)
[2017-12-09] MEDS: CARVEDILOL 6.25 MG TABLET PO SCH ×2 (08:11→20:28)
[2017-12-09 11:00] LABS: CHLORIDE 103 mEq/L (98-107)
[2017-12-09] MEDS: DIGOXIN 125MCG TABLET PO SCH (17:27)
[2017-12-09] MEDS: ATORVASTATIN CALCIUM 40MG TABLET PO SCH (20:28)
== END 2017-12-09 21:29 | DRG 222 ==
LOC: ER 12:54 → SUPCPDRO 14:16 → EDBEDREQ 16:27 → 6WST 18:02 → EDBEDREQ 18:05 → SUPCPDRO 18:19 → ENRESERV 20:06 → 3WST 12-01 13:25 → CVICU 12-03 03:47 → 3WST 12-07 21:21
PROVIDERS: ADMIT Family Medicine Adult Medicine; ATTEND Family Medicine Adult Medicine
PROC: 02HV33Z Insertion of Infusion Device into Superior Vena Cava, Percutaneous Approach (ICD-10-PCS; principal; 2017-12-01)
PROC: B5181ZA Fluoroscopy of Superior Vena Cava using Low Osmolar Contrast, Guidance (ICD-10-PCS; 2017-12-01)
PROC: B548ZZA Ultrasonography of Superior Vena Cava, Guidance (ICD-10-PCS; 2017-12-01)
PROC: 0JH608Z Insertion of Defibrillator Generator into Chest Subcutaneous Tissue and Fascia, Open Approach (ICD-10-PCS; 2017-12-06)
PROC: 02HL3KZ Insertion of Defibrillator Lead into Left Ventricle, Percutaneous Approach (ICD-10-PCS; 2017-12-06)
PROC: 4A023N6 Measurement of Cardiac Sampling and Pressure, Right Heart, Percutaneous Approach (ICD-10-PCS; 2017-12-06)
PROC: 02HK3KZ Insertion of Defibrillator Lead into Right Ventricle, Percutaneous Approach (ICD-10-PCS; 2017-12-06)
DX: I13.0 Hypertensive heart and chronic kidney disease with heart failure and stage 1 through stage 4 chronic kidney disease, or unspecified chronic kidney disease (principal); J96.00 Acute respiratory failure, unspecified whether with hypoxia or hypercapnia; N17.0 Acute kidney failure with tubular necrosis; G93.40 Encephalopathy, unspecified; J18.9 Pneumonia, unspecified organism; E11.22 Type 2 diabetes mellitus with diabetic chronic kidney disease; D68.9 Coagulation defect, unspecified; D69.6 Thrombocytopenia, unspecified; I50.43 Acute on chronic combined systolic (congestive) and diastolic (congestive) heart failure; J44.1 Chronic obstructive pulmonary disease with (acute) exacerbation; J44.0 Chronic obstructive pulmonary disease with (acute) lower respiratory infection; L97.919 Non-pressure chronic ulcer of unspecified part of right lower leg with unspecified severity; E11.51 Type 2 diabetes mellitus with diabetic peripheral angiopathy without gangrene; I48.0 Paroxysmal atrial fibrillation; N18.9 Chronic kidney disease, unspecified; E87.5 Hyperkalemia; I27.20 Pulmonary hypertension, unspecified; D63.8 Anemia in other chronic diseases classified elsewhere; E11.65 Type 2 diabetes mellitus with hyperglycemia; E78.00 Pure hypercholesterolemia, unspecified; E86.0 Dehydration; Z96.659 Presence of unspecified artificial knee joint; D50.9 Iron deficiency anemia, unspecified; R26.9 Unspecified abnormalities of gait and mobility; T14.8XXA Other injury of unspecified body region, initial encounter; X58.XXXA Exposure to other specified factors, initial encounter; I08.1 Rheumatic disorders of both mitral and tricuspid valves; I25.10 Atherosclerotic heart disease of native coronary artery without angina pectoris; I25.5 Ischemic cardiomyopathy; I44.7 Left bundle-branch block, unspecified; K21.9 Gastro-esophageal reflux disease without esophagitis; Z87.891 Personal history of nicotine dependence; Z91.19 Patient's noncompliance with other medical treatment and regimen; Z95.810 Presence of automatic (implantable) cardiac defibrillator; Z99.81 Dependence on supplemental oxygen; Z79.899 Other long term (current) drug therapy; Z90.49 Acquired absence of other specified parts of digestive tract; Y93.89 Activity, other specified; Y92.89 Other specified places as the place of occurrence of the external cause; Y99.8 Other external cause status
CPT/HCPCS: 33226; 33249; 36415; 36569; 36600; 51702; 71045; 75820; 76937; 77001; 80048; 80061; 80305; 82140; 82375; 82805; 82962; 83605; 83735; 83880; 84100; 84443; 84484; 87804; 92523; 92610; 93005; 93451; 93640; 93970; 93971; 94640; 94664; 96374; 96375; 97163; 97164; 97166; 97530; 99291; A6261; C1725; C1758; C1769; C1882; C1887; C1892; C1893; C1898; C1900; G0482; J0690; J0885; J1200; J1580; J1644; J1650; J1815; J1940; J1956; J2250; J2260; J2270; J2405; J2704; J2920; J3010; J3475; J3480; J3490; J7040; J7050; J7060; J7512; J7620; J7626; Q9967; A4315

== ENCOUNTER 2017-12-22 22:43 | Emergency (ER) | payer MEDICARE, MEDICAID ==
[~2017-12-22] VITALS: Ht 160 cm; Wt 60.0 kg
[~2017-12-22 22:43] MED LIST changes: +SPIR50TA26 PO; -SPIR50TA5 PO
[2017-12-23] MEDS ORDERED: SODIUM CHLORIDE 0.9% 1,000 ML IV ONE (00:02)
[2017-12-23 00:56] LABS: EOSINOPHILS % 0.6 % (0.0-5.0); HEMATOCRIT. 26.9 % (36.0-48.0); HEMOGLOBIN. 8.4 g/dL (12.0-16.0); LYMPHOCYTES % 19.6 % (20.0-50.0); MEAN CORPUSCULAR HEMOGLOBIN 24.9 pg (28.0-32.0); MEAN CORPUSCULAR VOLUME 79.8 fL (81.0-99.0); MEAN PLATELET VOLUME 9.6 fl (7.4-10.4); MONOCYTES % 8.9 % (2.0-8.0); NEUTROPHILS % 69.9 % (40.0-76.0); PLATELET 231 x1000/uL (130-400); RED BLOOD CELL COUNT 3.37 mill/uL (4.2-5.4); RED CELL DISTRIBUTION WIDTH 21.4 % (11.6-14.6)
[2017-12-23 01:05] LABS: INR 1.1; PROTHROMBIN TIME 11.7 sec (9.4-11.6)
[2017-12-23 01:18] LABS: CHLORIDE 108 mEq/L (98-107); TROPONIN I 0.06 ng/mL (0.00-0.04)
[2017-12-23 04:01] VITALS: BP 148/81
== END 2017-12-23 04:07 | disposition home or self-care (01) ==
LOC: ER 23:04 → CANBEDREQ 12-23 06:53
DX: D64.9 Anemia, unspecified (principal); I50.9 Heart failure, unspecified; I48.91 Unspecified atrial fibrillation; I25.10 Atherosclerotic heart disease of native coronary artery without angina pectoris; J44.9 Chronic obstructive pulmonary disease, unspecified
CPT/HCPCS: 36415; 71045; 80053; 83605; 84484; 85025; 85610; 86850; 86900; 86901; 93005; 96360; 96361; 99285; J7030